=== PATIENT | female | born 1980 | race Caucasian/White ===

== ENCOUNTER → 2020-07-02 11:52 | Outpatient (CLI) | payer BC, SELFPAY ==
--- NOTE | 2020-07-02 | XR_ITS ---
PROCEDURE: XR CHEST PORTABLE CLINICAL HISTORY: COVID TEST Cough COMPARISON: No exams were available for comparison FINDINGS: The cardiomediastinal silhouette and pulmonary vascularity are within normal limits. The lungs are clear without infiltrates, suspicious nodules, or pleural effusions. No acute bony abnormalities. IMPRESSION: No acute findings. Dictated b Kalen Fierro MD 07/02/2020 14:35 Kalen Fierro MD in [place] 07/02/2020 14:35
== END ==
PROVIDERS: PCP Nurse Practitioner; Visit Provider Nurse Practitioner
DX: Z03.818 Encounter for observation for suspected exposure to other biological agents ruled out (principal)
CPT/HCPCS: 71045; U0003

== ENCOUNTER → 2021-01-02 16:00 | Outpatient (CLI) | payer BC, SELFPAY | PROVIDERS: PCP Nurse Practitioner Family; Visit Provider Nurse Practitioner Family | DX: Z20.822 Contact with and (suspected) exposure to COVID-19 (principal) | CPT/HCPCS: U0003 ==

== ENCOUNTER → 2021-03-11 08:16 | Outpatient (CLI) | payer BC, SELFPAY ==
--- NOTE | 2021-03-11 08:22 | US_ITS ---
PROCEDURE: US ABDOMEN COMPLETE CLINICAL INDICATION: UPPER ABD PAIN Right upper quadrant pain COMPARISON: No exams were available for comparison FINDINGS: PANCREAS: Unremarkable. No obvious mass or abnormal fluid collection. No ductal dilatation LIVER: No focal liver lesions demonstrated. Homogeneous echogenicity. No intrahepatic biliary ductal dilatation evident. There is appropriate direction of blood flow within a non dilated portal vein RIGHT KIDNEY: Unremarkable. Normal size and echogenicity. No hydronephrosis. Minimal ectasia of the right renal collecting system nonspecific and may be due to patient's hydration status. LEFT KIDNEY: Unremarkable. Normal size and echogenicity. No hydronephrosis GALLBLADDER: No gallstones, gallbladder wall thickening, pericholecystic fluid, or biliary dilatation. AORTA: No evidence of aneurysmal dilatation. SPLEEN: Unremarkable. Normal size and echogenicity ASCITES: None demonstrated. IMPRESSION: Unremarkable abdominal ultrasound Dictated by: Kalen Fierro MD 03/11/2021 09:27 Kalen Fierro MD in [place] 03/11/2021 09:27
== END ==
PROVIDERS: PCP Nurse Practitioner Family; Visit Provider Nurse Practitioner Family
DX: R10.10 Upper abdominal pain, unspecified (principal)
CPT/HCPCS: 76700

== ENCOUNTER → 2021-03-26 07:35 | Outpatient (CLI) | payer BC, SELFPAY ==
--- NOTE | 2021-03-26 11:01 | NM_ITS ---
PROCEDURE: NM HEPATOBILIARY W PHARM CLINICAL INDICATION: UPPER ABD PAIN COMPARISON: No exams were available for comparison TECHNIQUE: DOSE: 7.82 mCi technetium Choletec. Fatty meal was given with Ensure. No pain was reported with fatty meal. FINDINGS: Homogeneous activity is present within the hepatic parenchyma. Activity is present in the gallbladder by 42 minutes. Activity is present in the small bowel by 10 minutes. The gallbladder ejection fraction is calculated to be 31 percent. The patient did not report pain or other symptoms during the fatty meal. IMPRESSION: No evidence of common or cystic duct obstruction. There is slight delay in gallbladder visualization and ejection fraction is slightly below normal at 31 percent. These findings may be seen with gallbladder dyskinesia. Please correlate with clinical parameters Dictated by: Kalen Fierro MD 03/26/2021 18:23 Kalen Fierro MD in [place] 03/26/2021 18:23
[2021-03-26 12:16] LABS: Urine Pregnancy, HCG Qual. Negative (Negative)
== END ==
PROVIDERS: PCP Nurse Practitioner Family; Visit Provider Nurse Practitioner Family
DX: R10.10 Upper abdominal pain, unspecified (principal)
CPT/HCPCS: 78227; 81025; A9537

== ENCOUNTER 2021-10-23 10:00 | Emergency (ER) | payer BC, SELFPAY ==
[2021-10-23] VITALS (7 sets, daily range): BP systolic 127–142; BP diastolic 69–90; PULSE 73–98; RESP 16–18; TEMP 36.7; O2SAT 95–100; BMI 26.5
[2021-10-23 10:57] LABS: Basophils # 0.1 K/mm3 (0-0.2); Basophils % 0.6 % (0.1-2.0); Eosinophils # 0.1 K/mm3 (0.0-0.4); Eosinophils % 1.3 % (0.1-12.0); Hematocrit 37.6 % (37.0-47.0); Hemoglobin 13.1 g/dL (12.2-16.2); Lymphocytes # 1.9 K/mm3 (0.7-4.5); Mean Corpuscular HGB Conc 34.8 g/dL (31.8-35.4); Mean Corpuscular Hemoglobin 30.6 pg (27.0-31.2); Mean Corpuscular Volume 87.9 fl (81-99); Mean Platelet Volume 7.8 fl (7.4-10.4); Monocytes # 0.3 K/mm3 (0.1-1.0); Monocytes % 3.3 % (1.7-9.3); Neutrophils # 5.5 K/mm3 (1.8-7.8); Neutrophils % 70.8 % (37.0-80.0); Platelet Count 346 K/mm3 (142-424); Red Blood Count 4.28 M/mm3 (4.20-5.40); Red Cell Distribution Width 13.4 % (11.5-17.5); White Blood Count 7.7 K/mm3 (4.8-10.8)
[2021-10-23 10:58] LABS: Chloride 106 mmol/L (98-107); Sodium 140 mmol/L (136-145)
[2021-10-23 10:59] LABS: Potassium 3.7 mmoL/L (3.5-5.1)
[2021-10-23 11:01] LABS: Alanine Aminotransferase 15 U/L (12-78); Alkaline Phosphatase 83 U/L (38-126); Anion Gap 11.7 mEq/L (5-15); Aspartate Amino Transferase 30 U/L (14-36); Blood Urea Nitrogen 9 mg/dl (7-17); Carbon Dioxide 26 mmol/L (22.0-30.0); Creatinine Clearance Estimated 194 mL/min (50-200); Estimated Glomerular Filt Rate 135 ml/min (>60); GFR (African American) 164 ML/MIN (>60)
[2021-10-23 11:02] LABS: Albumin Level 4.6 g/dl (3.5-5.0); Albumin/Globulin Ratio 1.6 (1.1-1.8); Calcium 9.1 mg/dl (8.4-10.2); Globulin 2.9 g/dL (1.3-3.2); Glucose 99 mg/dl (74-100); Total Protein,Serum 7.5 g/dl (6.3-8.2)
--- NOTE | 2021-10-23 11:27 | HMH.EDGENADL ---
ED Disposition Clinical Impression: Dizziness, Paresthesias, Nausea Headache Qualifiers: Headache type: unspecified Headache chronicity pattern: acute headache Intractability: intractable Qualified Code(s): R51.9 - Headache, unspecified Otalgia Qualifiers: Laterality: left Qualified Code(s): H92.02 - Otalgia, left ear Disposition: Home, Self-Care Condition on Discharge: Good Instructions: DI for Nausea -- Adult, DI for Headache, DI for Vertigo Additional Instructions: Fioricet as needed for headache. Antivert as needed for dizziness/vertigo. Zofran as needed for nausea. Additional instructions for HEADACHE: See your physician as soon as possible for further evaluation. Return immediately if worsening headache, vomiting, problems with vision or speech, fever, numbness or weakness of the extremities, neck pain or stiffness. Additional instructions for CONTROLLED SUBSTANCES: You have been prescribed a medication that is a controlled substance. Controlled substances include pain medications known as opiates and sedative nerve medications known as benzodiazepines. Tramadol, fioricet, and gabapentin are also controlled substances. Some common opiates include: Codeine (such as Tylenol #3) Hydrocodone (Vicodin, Lortab, Lorcet, Jensen) Oxycodone (Percocet, Percodan, Oxycodone, Oxy IR) Some common benzodiazepines include: Diazepam (Valium) Lorazepam (Ativan) Alprazolam (Xanax) Clonazepam (Klonopin) Oxazepam (Serax) All of these controlled substances are highly addictive and frequently abused. Misuse can and frequently does lead to addiction as well as overdose and . Medication should be stored in a locked cabinet or other secure storage unit. Do not store the medication in a motor vehicle. Short term supplies, 3 days or less, are prescribed because of the highly addictive nature of the medication. Any of the controlled substance medication NOT taken should be disposed of properly and NOT SAVED. The recommended method of disposing of unused medications is: Place the medicines in a sealable plastic bag. If the medicine is a solid, crush it or add water to dissolve it. Add something undesirable (cat litter, coffee grounds, etc.) Dispose of sealed bag in household trash Do not flush or pour unused medicines down a sink or drain. Controlled substances should not be shared, given away or sold. Because of the addictive nature and frequent abuse, these medications are sometimes stolen. These medications should be kept in a safe place where they cannot be stolen. Do not keep them in your car or purse. Lost or stolen prescriptions for controlled substances WILL NOT BE REFILLED in this emergency department, regardless of whether a police report was filed. Prescriptions: Butalb/Acetaminophen/Caffeine [Fioricet 50-300-40 mg Capsule] 1 each PO Q4HP PRN #10 capsule PRN Reason: Headache Transmission Status: Sent to [facility] Meclizine HCl [Antivert 25mg tablet] 25 mg PO TIDP PRN #15 tab PRN Reason: Vertigo Transmission Status: Pending to [facility] Ondansetron [Zofran 4mg ODT] 4 mg PO TIDP PRN #10 tab PRN Reason: Nausea And Vomiting Transmission Status: Pending to [facility] Referrals: Gabrielle Birch APRN [Primary Care Provider] - - Critical Care Critical Care Time: No Attestation: On 10/23/21, the high probability of a clinically significant, sudden or life threatening deterioration of the following system(s) required my full and direct attention, intervention and personal management. The time I documented below is in addition to time spent performing reported procedures but includes the following listed in this critical care notation. Medical Decision Making - Medical Records Medical records reviewed: Yes: I reviewed the patient's medical records. MR Comment: Reviewed patient's emergency department visit 10/20/2021 [facility] via [employer]. T
[2021-10-23 12:54] LABS: Microscopic, Urine URINE MICROSCOPIC (MICROSCOPIC)
[2021-10-23 12:56] LABS: Appearance,Urine CLEAR (Clear); Bilirubin,Urine Negative (Negative); Blood, Urine Negative (Negative); Color,Urine YELLOW (Yellow); Glucose,Urine (UA) Negative (Negative); Ketones,Urine Negative (Negative); Leukocyte Esterase,Urine Negative (Negative); Nitrate,Urine Negative (Negative); Protein,Urine Negative (Negative); Specific Gravity, Urine 1.015 (1.005-1.030); Urobilinogen,Urine 0.2 EU/dl (0.2)
[2021-10-23 12:57] LABS: Urine Pregnancy, HCG Qual. Negative (Negative)
[2021-10-23 13:08] LABS: Squamous Epithelial Cell,Urine Occasional #/hpf (0-5)
== END 2021-10-23 13:06 | disposition home or self-care (01) ==
PROVIDERS: Emergency Provider Emergency Medicine; PCP Nurse Practitioner Family
DX: R42 Dizziness and giddiness (principal); R20.2 Paresthesia of skin
CPT/HCPCS: 80053; 81001; 81025; 85025; 96374; 99283; J2405

== ENCOUNTER → 2021-10-27 17:53 | Outpatient (CLI) | payer BC, SELFPAY | PROVIDERS: PCP Nurse Practitioner Family; Visit Provider Nurse Practitioner | DX: Z20.822 Contact with and (suspected) exposure to COVID-19 (principal) | CPT/HCPCS: C9803; U0003; U0005 ==

== ENCOUNTER → 2021-11-02 12:25 | Outpatient (CLI) | payer BC, SELFPAY ==
--- NOTE | 2021-11-02 12:29 | XR_ITS ---
PROCEDURE: XR CERVICAL SPINE 5V CLINICAL INDICATION: CERVICALGIA COMPARISON: No exams were available for comparison FINDINGS: No fracture or dislocation. No lytic or blastic change. There is normal mineralization. Mild degenerative disc disease C5-C6. There is straightening of the cervical lordosis. No foraminal narrowing apparent. Other findings:None. IMPRESSION: Mild degenerative disc disease C5-C6 with straightening of the cervical lordosis which could be due to patient positioning or muscle spasm. Dictated by: Kalen Fierro MD 11/02/2021 13:40 Kalen Fierro MD in [place] 11/02/2021 13:40
== END ==
PROVIDERS: PCP Nurse Practitioner Family; Visit Provider Nurse Practitioner Family
DX: M54.2 Cervicalgia (principal)
CPT/HCPCS: 72050

== ENCOUNTER → 2021-11-05 15:52 | Outpatient (CLI) | payer BC, SELFPAY ==
[2021-11-05 17:12] LABS: Free T4 (Free Thyroxine) 1.39 ng/dl (0.78-2.19)
[2021-11-05 17:24] LABS: Thyroid Stimulating Hormone 0.51 uIU/mL (0.465-4.68)
[2021-11-05 17:58] LABS: Vitamin B12 774 pg/mL (239-931)
[2021-11-05 18:12] LABS: Folate > 20.00 ng/mL
[2021-11-09 15:14] LABS: Thyroglobulin Level <1.0 IU/mL (0.0-0.9)
== END ==
PROVIDERS: Visit Provider Specialist
DX: R51.9 Headache, unspecified (principal); E04.9 Nontoxic goiter, unspecified; R29.2 Abnormal reflex
CPT/HCPCS: 36415; 82607; 82746; 84439; 84443; 84481; 86800

== ENCOUNTER 2021-11-07 09:02 | Emergency (ER) | payer BC, SELFPAY ==
[2021-11-07 09:10] VITALS: BP 136/77; PULSE 102; RESP 19; TEMP 36.5; O2SAT 98; BMI 25.5
[2021-11-07 09:50] LABS: Apearance,Urine Clear (Clear); Color,Urine Yellow (Yellow); PH,Urine 6.5 (5.0-8.5)
[2021-11-07 09:50] LABS: UTC Strep Screen (Rapid) Negative (Negative)
[2021-11-07 09:51] LABS: Bilirubin,Urine Negative (Negative); Blood, Urine 3+ (Negative); Glucose,Urine (UA) Negative (Negative); Ketones,Urine Negative (Negative); Protein,Urine 1+ (Negative); UTC Leukocyte Esterase,Urine Trace (Negative); UTC Nitrate,Urine Negative (Negative); Urobilinogen,Urine 0.2 EU/dl (0.2)
--- NOTE | 2021-11-07 09:52 | HMH.EDUTC ---
[facility] [place] Disposition Clinical Impression: Yeast infection of the vagina UTI (urinary tract infection) Qualifiers: Urinary tract infection type: acute cystitis Hematuria presence: without hematuria Qualified Code(s): N30.00 - Acute cystitis without hematuria Disposition: Home, Self-Care Condition on Discharge: Good Instructions: Urinary Tract Infection, DI for Vaginal Yeast Infection Additional Instructions: Increase fluids, water and not soda or tea. Can drink cranberry juice or cranberry extract. White front to back Wear cotton underwear Empty bladder after intercourse Start antibiotics immediately and make sure you take the full course although you may start to see improvement over the next 48 hours. You can eat yogurt or take probiotics to decrease diarrhea or yeast infection caused by the antibiotic Be sure to follow-up anytime for new or worsening symptoms in 48 hours for wound urine culture results be sure to let you PCP no recent urine for culture so they can request records and ensure that you have appropriate antibiotic if you are not getting better or getting worse. If symptoms worsen or do not improve return or be seen in the ER. Follow-up with primary care this week. do not take nurtec within 48 hours of diflucan Prescriptions: cephALEXin [Cephalexin 500mg Tab] 500 mg PO BID 7 Days #14 tab Transmission Status: Sent to [facility] Fluconazole [Diflucan 150mg tab] 150 mg PO ONCE 1 Days #1 tab Transmission Status: Sent to [facility] Referrals: Gabrielle Birch APRN [Primary Care Provider] - Time of Disposition: 09:58 Medical Decision Making - Lai Inquiry Pt receiving controlled substance: No Vital Signs: 11/07/21 09:10 Temperature 97.7 F Temperature Source Oral Pulse Rate [Right Brachial] 102 H Respiratory Rate 19 Blood Pressure [Right Arm] 136/77 Blood Pressure Mean [Right Arm] 96 Blood Pressure Source [Right Arm] Automatic Cuff Blood Pressure Position [Right Arm] Sitting 02 Sat by Pulse Oximetry 98 Oxygen Delivery Method Room Air - Lab Data Lab Results 11/07/21 09:27: Urine Color Yellow, Urine Appearance Clear, Urine pH 6.5, Ur Specific Warner 1.020, Urine Protein 1+, Urine Glucose (UA) Negative, Urine Ketones Negative, Urine Blood 3+, Urine Nitrate Negative, Urine Bilirubin Negative, Urine Urobilinogen 0.2, Ur Leukocyte Esterase Trace 11/07/21 09:33: Strep Scn Rapid Clinic Negative Orders (Tests/Meds): ORDERS Category Date Time Status Strep Screen Confirmation Stat Micro 11/07/21 09:33 Received [facility] [place] HPI - General Chief complaint: Urgent Treatment Center Stated complaint: sore throat Time Seen by Provider: 11/07/21 09:52 Mode of Arrival: Ambulatory Source of Information: Patient Limitations: No Limitations Description of Symptoms (Recalled from Triage Doc. by RN): PATIENT C/O ITCHING TO VAGINAL AREA X 2 DAYS AND SORE THROAT/SINUS DRAINAGE X 3 DAYS HEENT Symptoms (Recalled from RN notes): Yes Resp Symptoms (Recalled from RN notes): No Skin Symptoms (Recalled from RN notes): No MS Symptoms (Recalled from RN notes): No Functional Status (Recalled from RN notes): WNL - History of Present Illness Provider Complaint: 41 yr old female presents for vaginal itching, burning for 2 days and sore throat and sinus drainage for 3 days. just finished amoxicillin and still taking steroids. - Related Data Home Medications Medication Instructions Recorded Confirmed sertraline 25 mg tablet 25 mg PO DAILY 11/05/21 11/07/21 Rimegepant Sulfate [Nurtec Odt] 75 mg PO DAILY 11/07/21 11/07/21 methylPREDNISolone 4 mg PO PER PKG DIR 11/07/21 11/07/21 [Methylprednisolone] Previous Rx's Medication Instructions Recorded Fluconazole [Diflucan 150mg tab] 150 mg PO ONCE 1 Days #1 tab 11/07/21 cephALEXin [Cephalexin 500mg Tab] 500 mg PO BID 7 Days #14 tab 11/07/21 Allergies Allergy/AdvReac Type Severity Reaction Status Date / Time No Known Allergies All
[2021-11-07 09:59] VITALS: BP 136/77; PULSE 102; RESP 19; TEMP 36.5; O2SAT 98
== END 2021-11-07 10:03 | disposition home or self-care (01) ==
PROVIDERS: Emergency Provider Nurse Practitioner Family; PCP Nurse Practitioner Family
DX: N30.00 Acute cystitis without hematuria (principal); B37.3 Candidiasis of vulva and vagina; E78.5 Hyperlipidemia, unspecified; F33.1 Major depressive disorder, recurrent, moderate
CPT/HCPCS: 81003; 87086; 87088; 87186; 87880; 99203; G0463

== ENCOUNTER → 2021-11-11 13:27 | Outpatient (CLI) | payer BC, SELFPAY ==
--- NOTE | 2021-11-11 13:27 | MR_ITS ---
PROCEDURE: MR HEAD/BRAIN WO/W CON CLINICAL INDICATION: new onset headache Pain in pain in COMPARISON: No exams were available for comparison TECHNIQUE: Routine multiplanar multi echo sequences are performed without and with gadolinium enhancement. FINDINGS: No midline shift, mass effect, intracranial hemorrhage, or hydrocephalus. The cerebellopontine angles, cerebellum, and brainstem have an unremarkable appearance. No restricted diffusion. No enhancing lesions. The pituitary,, corpus callosum, and craniocervical junction have an unremarkable appearance. Unremarkable white matter signal intensity. No mastoid effusion. No sinus air-fluid level. There is mucosal thickening in the left ethmoid sinus and the left sphenoid ethmoid region. Mild prominence of the subarachnoid space in the frontal parietal area nonspecific. IMPRESSION: No acute intracranial findings. Ethmoid sinus disease on the left Dictated by: Kalen Fierro MD 11/12/2021 11:35 Kalen Fierro MD in [place] 11/12/2021 11:35
== END ==
PROVIDERS: PCP Nurse Practitioner Family; Visit Provider Specialist
DX: R51.9 Headache, unspecified (principal); R29.2 Abnormal reflex
CPT/HCPCS: 70553; A9576

== ENCOUNTER → 2021-12-05 09:46 | Outpatient (CLI) | payer BC, SELFPAY | PROVIDERS: PCP Nurse Practitioner Family; Visit Provider Nurse Practitioner | DX: U07.1 COVID-19 (principal) | CPT/HCPCS: C9803; U0003; U0005 ==

== ENCOUNTER → 2022-03-18 08:30 | Outpatient (CLI) | payer BC, SELFPAY ==
--- NOTE | 2022-03-18 08:34 | US_ITS ---
FINAL REPORT CLINICAL HISTORY: RIGHT SIDED ABDOMINAL PAIN. STATUS POST CHOLECYSTECTOMY FINDINGS: Sonographic images of the abdomen were obtained. The liver has an unremarkable appearance with normal echogenicity. The gallbladder is surgically absent. There is no evidence of biliary ductal dilatation. The common hepatic duct measures 3 mm, which is within normal limits. Limited images of the pancreas are unremarkable. The spleen size is normal. The right kidney measures 11.4 cm in length. The left kidney measures 12.9 cm in length. There is normal renal echogenicity. There is no evidence of hydronephrosis. The aorta has an unremarkable appearance. Limited images of the inferior vena cava are unremarkable. IMPRESSION: Surgically absent gallbladder otherwise unremarkable abdominal ultrasound. Reviewed, Interpreted and Dictated by Masood Ni III, MD Transcribed by Daniel Ward Authenticated by Masood Ni III, MD on 03/18/2022 10:26:[address] [facility]
== END ==
PROVIDERS: PCP Nurse Practitioner Family; Visit Provider Nurse Practitioner Family
DX: R10.9 Unspecified abdominal pain (principal); Z90.49 Acquired absence of other specified parts of digestive tract
CPT/HCPCS: 76700

== ENCOUNTER → 2022-04-27 11:39 | Outpatient (CLI) | payer BC, SELFPAY ==
[2022-04-27 12:26] LABS: Basophils # 0.1 K/mm3 (0-0.2); Basophils % 2.1 % (0.1-2.0); Eosinophils # 0.2 K/mm3 (0.0-0.4); Eosinophils % 3.1 % (0.1-12.0); Hematocrit 37.4 % (37.0-47.0); Hemoglobin 12.6 g/dL (12.2-16.2); Lymphocytes # 1.4 K/mm3 (0.7-4.5); Lymphocytes % 25.1 % (10-50); Mean Corpuscular HGB Conc 33.7 g/dL (31.8-35.4); Mean Corpuscular Hemoglobin 29.6 pg (27.0-31.2); Mean Platelet Volume 7.7 fl (7.4-10.4); Monocytes # 0.4 K/mm3 (0.1-1.0); Monocytes % 6.2 % (1.7-9.3); Neutrophils # 3.6 K/mm3 (1.8-7.8); Neutrophils % 63.6 % (37.0-80.0); Platelet Count 286 K/mm3 (142-424); Red Blood Count 4.25 M/mm3 (4.20-5.40); Red Cell Distribution Width 13.7 % (11.5-17.5); White Blood Count 5.6 K/mm3 (4.8-10.8)
[2022-04-28 14:13] LABS: EBV Ab VCA, IgG >600.0 U/mL (0.0-17.9); EBV Ab VCA, IgM <36.0 U/mL (0.0-35.9)
== END ==
PROVIDERS: PCP Nurse Practitioner Family; Visit Provider Nurse Practitioner Family
DX: Z20.822 Contact with and (suspected) exposure to COVID-19 (principal); Z20.828 Contact with and (suspected) exposure to other viral communicable diseases; R05.1 Acute cough; R59.0 Localized enlarged lymph nodes
CPT/HCPCS: 36415; 85025; 86664; 86665; C9803; U0003; U0005

== ENCOUNTER 2022-05-25 16:35 | Emergency (ER) | payer BC, SELFPAY ==
[2022-05-25 16:42] VITALS: BP 123/73; PULSE 77; RESP 18; TEMP 36.9; O2SAT 97; BMI 26.5
--- NOTE | 2022-05-25 16:50 | HMH.EDUTC ---
[facility] [place] Disposition Clinical Impression: Need for Tdap vaccination, Superficial laceration of finger Disposition: Home, Self-Care Condition on Discharge: Good Instructions: DI for Avulsion Laceration (Not Requiring Sutures), Tetanus, Diphtheria, Pertussis (Tdap) Vaccine Additional Instructions: Keep the wound clean and dry. Watch the for signs of infection, such as redness, swelling, drainage, fever. etc. Follow up with your regular doctor. GO TO THE ER FOR ANY WORSENING SYMPTOMS OR CONCERNS. Prescriptions: Mupirocin [Bactroban 2% Ointment 22gm tube] 1 applicatio TP TID 7 Days #1 gm Transmission Status: Pending to [facility] Referrals: Gabrielle Birch APRN [Primary Care Provider] - Time of Disposition: 16:52 Medical Decision Making - Medical Records Medical records reviewed: No: I reviewed the patient's medical records. - Lai Inquiry Pt receiving controlled substance: No Vital Signs: 05/25/22 16:42 Temperature 98.5 F Temperature Source Oral Pulse Rate [Left] 77 Respiratory Rate 18 Blood Pressure [Right Arm] 123/73 Blood Pressure Mean [Right Arm] 89 02 Sat by Pulse Oximetry 97 Orders (Tests/Meds): ED MEDICATIONS Discontinued Medications Generic Name Dose Route Start Last Admin Trade Name Freq PRN Reason Stop Dose Admin Tetanus/Diphtheria Toxoids 0.5 ml 05/25/22 16:49 05/25/22 16:50 Tetanus-Diphth Toxoid, Adult 0.5ml Syr IM 05/25/22 16:50 0.5 ml .ONCE ONE Administration [facility] [place] HPI - General Stated complaint: AO 05/25@1530 lac R little finger Time Seen by Provider: 05/25/22 16:45 Description of Symptoms (Recalled from Triage Doc. by RN): patient comes in today for a tetanus shot. patient was washing a truck and sliced finger on a dawood part. HEENT Symptoms (Recalled from RN notes): No Resp Symptoms (Recalled from RN notes): No Skin Symptoms (Recalled from RN notes): Yes MS Symptoms (Recalled from RN notes): No Functional Status (Recalled from RN notes): wnl - History of Present Illness Provider Complaint: She was washing her 's truck this morning when her right index finger got caught on some rust and she recieved a small superficial laceration. She came in because it has been over 10 years since she has had a tetanus immunization. She denies any other complaints. - Related Data Home Medications Medication Instructions Recorded Confirmed sertraline 25 mg tablet 25 mg PO DAILY 11/05/21 05/10/22 Previous Rx's Medication Instructions Recorded rimegepant 75 mg disintegrating 75 mg PO ONCE PRN #8 tab 05/10/22 tablet Mupirocin [Bactroban 2% Ointment 1 applicatio TP TID 7 Days #1 gm 05/25/22 22gm tube] Allergies Allergy/AdvReac Type Severity Reaction Status Date / Time No Known Allergies Allergy Verified 03/08/22 09:20 - Worker's Comp Is this a Worker's Comp case?: No [facility] History - Hepatitis A Screen Attestation statement:: This patient has been screened for Hepatitis A risk factors. I have reviewed the patient's past medical history: Yes Medical History: Reports:: Depression, Hyperlipidemia, Migraine, Palpitations Other Medical History: Reports: Thyroid Disease Laterality Cases: Bilateral: Tonsillectomy Other Surgeries: Yes: Cholecystectomy, Sinus Surgery Amputation: No Fractures: Yes Comment: DENTAL IMPLANT - 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 Smoking Status: Never smoker Alcohol Intake: current Alcohol Intake Frequency:: holidays/special occasions only Substance Use Type: denies use Occupational Status: employed Housing: house Household Members: spouse, children - Psychiatric History Pschychiatric History:: Reports:: Depression Family Hx:: Hypertension, Heart Attack ROS Obtained: Yes All systems reviewed & no additional complaints - Constitutional Constitutional: Denies chills, Denies fever(s) - Musculoskeletal Musculoskeletal: Denies joint pain - Integumentary/Breasts Skin/Breast: Reports as per HPI
[2022-05-25 16:59] VITALS: BP 123/73; PULSE 77; RESP 18; TEMP 36.9
== END 2022-05-25 17:00 | disposition home or self-care (01) ==
PROVIDERS: Emergency Provider Nurse Practitioner Family; PCP Nurse Practitioner Family
DX: S61.210A Laceration without foreign body of right index finger without damage to nail, initial encounter (principal); W26.9XXA Contact with unspecified sharp object(s), initial encounter
CPT/HCPCS: 90471; 90714; 99212; G0463

== ENCOUNTER → 2022-10-27 09:28 | Outpatient (CLI) | payer BC, SELFPAY ==
--- NOTE | 2022-10-27 09:32 | XR_ITS ---
FINAL REPORT TECHNIQUE: Chest PA & Lateral CLINICAL HISTORY: CHEST PAIN during inspiration x 2 months chest feels heavy COMPARISON: July 02, 2020 FINDINGS: 2 views of the chest were performed. The heart size is normal. The mediastinum is within normal limits. There is no acute cardiopulmonary process. There are no pleural effusions. There is no pneumothorax. The bony thorax appears intact. IMPRESSION: No acute cardiopulmonary process. Reviewed, Interpreted and Dictated by Saqib Alvarez MD Transcribed by Janice Delgado Authenticated and [facility]
== END ==
PROVIDERS: PCP Nurse Practitioner Family; Visit Provider Family Medicine
DX: R07.9 Chest pain, unspecified (principal)
CPT/HCPCS: 71046

== ENCOUNTER 2023-01-08 08:00 | Emergency (ER) | payer BC, SELFPAY ==
[2023-01-08 08:10] VITALS: BP 115/73; PULSE 118; RESP 21; TEMP 37.1; O2SAT 96; BMI 26.8
[2023-01-08 08:17] LABS: UTC Strep Screen (Rapid) Positive (Negative)
--- NOTE | 2023-01-08 08:32 | EXP.UTC ---
Discharge Plan Disposition Patient Disposition: Home, Self-Care Condition: Good Prescriptions Prescriptions: New prednisone 10 mg tablet 10 mg PO BID 3 Days Qty: 6 0RF amoxicillin [amoxicillin] 500 mg tablet 500 mg PO TID 10 Days Qty: 30 0RF ondansetron 4 mg Tablet,Disintegrating 4 mg PO Q8H PRN (Reason: Nausea) Qty: 12 0RF No Action sertraline [Zoloft] 25 mg tablet 25 mg PO DAILY Linzess 72 mcg capsule 72 mcg PO PRN Nurtec ODT 75 mg tablet,disintegrating 75 mg PO ONCE PRN (Reason: migraine headache) Qty: 8 5RF Rx Instructions: Place 1 pill under tongue at onset of headache. Max dose 75 mg in 24 hours. Referrals Follow up/Referrals: Gabrielle Birch APRN [Primary Care Provider] - See instructions Activity Restrictions/Add. Instructions Additional Instructions/Restrictions: Drink plenty of fluids. Take tylenol or ibuprofen for pain or fever. Take the medications as directed. Follow up with your regular doctor. GO TO THE ER FOR ANY WORSENING SYMPTOMS Throw your tooth brush away and get a new one. Clinical Impressions Clinical Impression: Strep throat Instructions Patient Instructions: Strep Throat, DI for Strep Throat Discharge ED Provider: Rafael Sandoval [facility] General Stated complaint: sore throat,congestion,achey Mode of Arrival: Ambulatory Source of Information: Patient Limitations: No Limitations Time Seen by Provider: 01/08/23 08:33 Description of Symptoms (Recalled from Triage Doc. by RN): PATIENT C/O SORE THROAT, BODY ACHES, HEADACHE, VOMITING AND CONGESTION SINCE LAST NIGHT HEENT Symptoms (Recalled from RN notes): Yes Resp Symptoms (Recalled from RN notes): No Skin Symptoms (Recalled from RN notes): No MS Symptoms (Recalled from RN notes): No Functional Status (Recalled from RN notes): WNL History of Present Illness Provider Complaint: She states that for the past 2 days she has had a worsening sore throat, chills, and low grade fever. Related Data Home Medications Medication Instructions Recorded Confirmed sertraline 25 mg tablet (Zoloft) 25 mg PO DAILY MOOD 11/05/21 11/25/22 linaclotide 72 mcg capsule 72 mcg PO PRN 11/25/22 11/25/22 (Linzess) Previous Rx's Medication Instructions Recorded rimegepant 75 mg disintegrating 75 mg PO ONCE PRN migraine 11/25/22 tablet (Nurtec ODT) headache #8 tabs amoxicillin 500 mg tablet 500 mg PO TID 10 days #30 tabs 01/08/23 ondansetron 4 mg disintegrating 4 mg PO Q8H PRN Nausea #12 tabs 01/08/23 tablet prednisone 10 mg tablet 10 mg PO BID 3 days #6 tabs 01/08/23 Allergies Allergy/AdvReac Type Severity Reaction Status Date / Time No Known Allergies Allergy Verified 07/07/22 16:00 Worker's Comp Is this a Worker's Comp case?: No PFSH PFS Disclaimer: The information contained in this section may have been updated after the patient was seen, as this information can be updated by other users. 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 Smoking Status: Never smoker alcohol intake: current substance use type: denies use current occupational status: employed Travel in the last 8 weeks: None household members: spouse and children housing: house ROS Obtained: Yes All systems reviewed & no additional complaints except as documented Constitutional Constitutional: Reports chills and Reports fever(s) Eyes Eyes: Denies eye discharge ENT Ears, Nose, Mouth, and Throat: Reports as per HPI Cardiovascular Cardiovascular: Denies chest pain Respiratory Respiratory: Denies chest congestion and Reports cough Gastrointestinal Gastrointestingal: Reports nausea; Denies abdominal pain, constipation, cramping, diarrhea or vomiting Musculoskeletal Musculoskeletal: Denies arthralgias Integumentary/Breasts Skin/Breast: Denies rash Neurologic Neurologic: Denies paresthesias Physical Exam General General appearance: alert and in no apparent distress He
[2023-01-08 08:50] VITALS: BP 115/73; PULSE 118; RESP 21; TEMP 37.1; O2SAT 96
== END 2023-01-08 09:05 | disposition home or self-care (01) ==
PROVIDERS: Emergency Provider Nurse Practitioner Family; PCP Nurse Practitioner Family
DX: J02.0 Streptococcal pharyngitis (principal)
CPT/HCPCS: 87880; 96372; 99212; 99213; G0463; J0696

== ENCOUNTER 2023-02-13 08:00 | Emergency (ER) | payer BC, SELFPAY ==
[2023-02-13 08:10] VITALS: BP 122/75; PULSE 89; RESP 19; TEMP 37.1; O2SAT 99; BMI 26.8
[2023-02-13 08:33] LABS: Apearance,Urine Clear (Clear); Color,Urine Yellow (Yellow); Specific Gravity, Urine >= 1.030 (1.005-1.030)
[2023-02-13 08:34] LABS: Bilirubin,Urine Negative (Negative); Blood, Urine Trace (Negative); Glucose,Urine (UA) Negative (Negative); Ketones,Urine Negative (Negative); Protein,Urine 1+ (Negative); UTC Leukocyte Esterase,Urine 1+ (Negative); UTC Nitrate,Urine Negative (Negative); Urobilinogen,Urine 0.2 EU/dl (0.2)
--- NOTE | 2023-02-13 08:40 | EXP.UTC ---
Discharge Plan Disposition Patient Disposition: Home, Self-Care Condition: Good Prescriptions Prescriptions: New cephalexin [cephalexin] 500 mg tablet 500 mg PO BID 7 Days Qty: 14 0RF fluconazole [Diflucan] 100 mg tablet 100 mg PO ONCE Qty: 2 0RF Rx Instructions: 1 TAB NOW AND REPEAT DOSE AFTER COMPLETING ANTIBIOTICS No Action sertraline [Zoloft] 25 mg tablet 25 mg PO DAILY Linzess 72 mcg capsule 72 mcg PO PRN Nurtec ODT 75 mg tablet,disintegrating 75 mg PO ONCE PRN (Reason: migraine headache) Qty: 8 5RF Rx Instructions: Place 1 pill under tongue at onset of headache. Max dose 75 mg in 24 hours. prednisone 10 mg tablet 10 mg PO BID 3 Days Qty: 6 0RF amoxicillin [amoxicillin] 500 mg tablet 500 mg PO TID 10 Days Qty: 30 0RF ondansetron 4 mg Tablet,Disintegrating 4 mg PO Q8H PRN (Reason: Nausea) Qty: 12 0RF Referrals Follow up/Referrals: Gabrielle Birch APRN [Primary Care Provider] - See instructions Activity Restrictions/Add. Instructions Additional Instructions/Restrictions: Increase fluids, water and not soda or tea. Can drink cranberry juice or cranberry extract. White front to back Wear cotton underwear Empty bladder after intercourse Start antibiotics immediately and make sure you take the full course although you may start to see improvement over the next 48 hours. You can eat yogurt or take probiotics to decrease diarrhea or yeast infection caused by the antibiotic Be sure to follow-up anytime for new or worsening symptoms in 48 hours for wound urine culture results be sure to let you PCP no recent urine for culture so they can request records and ensure that you have appropriate antibiotic if you are not getting better or getting worse. If symptoms worsen or do not improve return or be seen in the ER. Follow-up with primary care this week. Clinical Impressions Clinical Impression: UTI (urinary tract infection), Yeast infection of the vagina Instructions Patient Instructions: DI for Urinary Tract Infection (UTI), DI for Vaginal Yeast Infection [facility] HPI General Stated complaint: Possible UTI Mode of Arrival: Ambulatory Source of Information: Patient Limitations: No Limitations Time Seen by Provider: 02/13/23 08:41 Description of Symptoms (Recalled from Triage Doc. by RN): PATIENT C/O BURNING AND ITCHING TO GENITAL AREA THAT STARTED TUESDAY AND PELVIC PAIN THAT STARTED YESTERDAY HEENT Symptoms (Recalled from RN notes): No Resp Symptoms (Recalled from RN notes): No Skin Symptoms (Recalled from RN notes): No MS Symptoms (Recalled from RN notes): No Functional Status (Recalled from RN notes): WNL History of Present Illness Provider Complaint: 42 YR OLD FEMALE PRESENTS C/O BURNING AND ITCHING TO GENITAL AREA THAT STARTED TUESDAY AND PELVIC PAIN THAT STARTED YESTERDAY Related Data Home Medications Medication Instructions Recorded Confirmed sertraline 25 mg tablet (Zoloft) 25 mg PO DAILY MOOD 11/05/21 11/25/22 linaclotide 72 mcg capsule 72 mcg PO PRN 11/25/22 11/25/22 (Linzess) Previous Rx's Medication Instructions Recorded rimegepant 75 mg disintegrating 75 mg PO ONCE PRN migraine 11/25/22 tablet (Nurtec ODT) headache #8 tabs amoxicillin 500 mg tablet 500 mg PO TID 10 days #30 tabs 01/08/23 ondansetron 4 mg disintegrating 4 mg PO Q8H PRN Nausea #12 tabs 01/08/23 tablet prednisone 10 mg tablet 10 mg PO BID 3 days #6 tabs 01/08/23 cephalexin 500 mg tablet 500 mg PO BID 7 days #14 tabs 02/13/23 fluconazole 100 mg tablet 100 mg PO ONCE #2 tabs 02/13/23 (Diflucan) Allergies Allergy/AdvReac Type Severity Reaction Status Date / Time No Known Allergies Allergy Verified 07/07/22 16:00 Worker's Comp Is this a Worker's Comp case?: No [facility] Disclaimer: The information contained in this section may have been updated after the patient was seen, as this information can be updated by
[2023-02-13 08:48] VITALS: BP 122/75; PULSE 89; RESP 19; TEMP 37.1; O2SAT 99
== END 2023-02-13 08:58 | disposition home or self-care (01) ==
PROVIDERS: Emergency Provider Nurse Practitioner Family; PCP Nurse Practitioner Family
DX: N39.0 Urinary tract infection, site not specified (principal); B37.31 Acute candidiasis of vulva and vagina
CPT/HCPCS: 81003; 87086; 99212; 99214; G0463

== ENCOUNTER 2023-03-26 19:22 | Emergency (ER) | payer BC, SELFPAY ==
--- NOTE | 2023-03-26 19:39 | EXP.UTC ---
Discharge Plan Disposition Patient Disposition: Home, Self-Care Condition: Good Prescriptions Prescriptions: No Action sertraline [Zoloft] 25 mg tablet 25 mg PO DAILY Linzess 72 mcg capsule 72 mcg PO PRN Nurtec ODT 75 mg tablet,disintegrating 75 mg PO ONCE PRN (Reason: migraine headache) Qty: 8 5RF Rx Instructions: Place 1 pill under tongue at onset of headache. Max dose 75 mg in 24 hours. prednisone 10 mg tablet 10 mg PO BID 3 Days Qty: 6 0RF amoxicillin [amoxicillin] 500 mg tablet 500 mg PO TID 10 Days Qty: 30 0RF ondansetron 4 mg Tablet,Disintegrating 4 mg PO Q8H PRN (Reason: Nausea) Qty: 12 0RF cephalexin [cephalexin] 500 mg tablet 500 mg PO BID 7 Days Qty: 14 0RF fluconazole [Diflucan] 100 mg tablet 100 mg PO ONCE Qty: 2 0RF Rx Instructions: 1 TAB NOW AND REPEAT DOSE AFTER COMPLETING ANTIBIOTICS Referrals Follow up/Referrals: Gabrielle Birch APRN [Primary Care Provider] - See instructions Clinical Impressions Clinical Impression: Impacted cerumen of left ear Instructions Patient Instructions: Cerumen Impaction Discharge ED Provider: Luis Alfredo ([facility])Marybeth [facility] [place] HPI General Stated complaint: Left ear pain Mode of Arrival: Ambulatory Source of Information: Patient Time Seen by Provider: 03/26/23 19:39 HEENT Symptoms (Recalled from RN notes): Yes Resp Symptoms (Recalled from RN notes): No Skin Symptoms (Recalled from RN notes): No GI/ Symptoms (Recalled from RN notes): No Card Symptoms (Recalled from RN notes): No Other (Recalled from RN notes): No History of Present Illness Provider Complaint: 42 yr old female presents for left ear and face pain. pt states hx of headaches but this pain is coming from ear and running up face Related Data Home Medications Medication Instructions Recorded Confirmed sertraline 25 mg tablet (Zoloft) 25 mg PO DAILY MOOD 11/05/21 11/25/22 linaclotide 72 mcg capsule 72 mcg PO PRN 11/25/22 11/25/22 (Linzess) Previous Rx's Medication Instructions Recorded rimegepant 75 mg disintegrating 75 mg PO ONCE PRN migraine 11/25/22 tablet (Nurtec ODT) headache #8 tabs amoxicillin 500 mg tablet 500 mg PO TID 10 days #30 tabs 01/08/23 ondansetron 4 mg disintegrating 4 mg PO Q8H PRN Nausea #12 tabs 01/08/23 tablet prednisone 10 mg tablet 10 mg PO BID 3 days #6 tabs 01/08/23 cephalexin 500 mg tablet 500 mg PO BID 7 days #14 tabs 02/13/23 fluconazole 100 mg tablet 100 mg PO ONCE #2 tabs 02/13/23 (Diflucan) Allergies Allergy/AdvReac Type Severity Reaction Status Date / Time No Known Allergies Allergy Verified 07/07/22 16:00 [facility] Disclaimer: The information contained in this section may have been updated after the patient was seen, as this information can be updated by other users. 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) Smoking Status: Never smoker alcohol intake: current substance use type: denies use current occupational status: employed Travel in the last 8 weeks: None household members: spouse and children housing: house ROS Obtained: Yes All systems reviewed & no additional complaints except as documented Constitutional Constitutional: Reports system reviewed and no additional complaints, except as documented, Reports as per HPI and Reports headache(s) Eyes Eyes: Reports system reviewed and no additional complaints, except as documented and Reports as per HPI ENT Ears, Nose, Mouth, and Throat: Reports system reviewed and no additional complaints, except as documented, Reports as per HPI, Reports otalgia and Reports headache(s) Cardiovascular Cardiovascular: Reports system reviewed and no additional complaints, except as documented Respiratory Respiratory: Reports system reviewed and no additional complaints, except as documented Gastrointestinal Gastrointestingal: Reports system reviewed and no additional complaints, except as documented
[2023-03-26 19:41] VITALS: BP 121/77; PULSE 93; RESP 16; TEMP 36.7; O2SAT 97; BMI 26.8
[2023-03-26 19:55] VITALS: BP 121/77; PULSE 93; RESP 16; TEMP 36.7
== END 2023-03-26 19:58 | disposition home or self-care (01) ==
PROVIDERS: Emergency Provider Nurse Practitioner Family; PCP Nurse Practitioner Family
DX: H61.22 Impacted cerumen, left ear (principal); H92.02 Otalgia, left ear
CPT/HCPCS: 99212; 99214; G0463

== ENCOUNTER → 2023-05-16 08:13 | Outpatient (CLI) | payer BC, SELFPAY ==
--- NOTE | 2023-05-16 08:18 | MR_ITS ---
FINAL REPORT CLINICAL HISTORY: KNEE PAIN AROUND PATELLA...EVAL FOR TEAR FINDINGS: Multi planar MR imaging was performed of the right knee. The anterior and posterior cruciate ligaments are intact. The quadriceps and patellar tendons are intact. The medial and lateral menisci are intact without evidence of tear. The medial and lateral collateral ligaments appear intact. The medial and lateral retinacula appear intact. There is bone marrow edema and grade 1-2 chondromalacia of the medial and lateral facets of the patella. This is best seen on images 8. Through 11 on series number 3. A small joint effusion is present. No evidence of soft tissue inflammatory reaction. 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 Small joint effusion. Reviewed, Interpreted and Dictated by Saqib Alvarez MD Transcribed by Selma Ojeda Authenticated and [facility]
== END ==
PROVIDERS: PCP Nurse Practitioner Family; Visit Provider Orthopaedic Surgery
DX: M25.562 Pain in left knee (principal); M23.92 Unspecified internal derangement of left knee
CPT/HCPCS: 73721

== ENCOUNTER → 2023-08-06 10:29 | Outpatient (CLI) | payer BC, SELFPAY ==
[2023-08-06 10:43] LABS: Basophils % 0.6 % (0.1-2.0); Eosinophils # 0.2 K/mm3 (0.0-0.4); Eosinophils % 2.4 % (0.1-12.0); Hematocrit 41.8 % (37.0-47.0); Hemoglobin 13.2 g/dL (12.2-16.2); Lymphocytes # 2.2 K/mm3 (0.7-4.5); Lymphocytes % 28.1 % (10-50); Mean Corpuscular HGB Conc 31.5 g/dL (31.8-35.4); Mean Corpuscular Hemoglobin 28.6 pg (27.0-31.2); Mean Corpuscular Volume 90.8 fl (81-99); Mean Platelet Volume 7.6 fl (7.4-10.4); Monocytes # 0.3 K/mm3 (0.1-1.0); Monocytes % 4.3 % (1.7-9.3); Neutrophils % 64.6 % (37.0-80.0); Platelet Count 328 K/mm3 (142-424); Red Cell Distribution Width 13.2 % (11.5-17.5); White Blood Count 7.7 K/mm3 (4.8-10.8)
[2023-08-06 12:06] LABS: Chloride 105 mmol/L (98-107); Potassium 4.4 mmoL/L (3.5-5.1); Sodium 143 mmol/L (136-145)
[2023-08-06 12:09] LABS: Alanine Aminotransferase 32 U/L (12-78); Albumin Level 4.1 g/dl (3.5-5.0); Albumin/Globulin Ratio 1.3 (1.1-1.8); Alkaline Phosphatase 90 U/L (38-126); Anion Gap 14.4 mEq/L (5-15); Aspartate Amino Transferase 32 U/L (14-36); Bilirubin,Total 0.9 mg/dl (0.2-1.3); Blood Urea Nitrogen 14 mg/dl (7-17); Calcium 9.4 mg/dl (8.4-10.2); Carbon Dioxide 28 mmol/L (22.0-30.0); Cholesterol 212 mg/dl (140-200); Estimated Glomerular Filt Rate 91 ml/min (>60); GFR (African American) 110 ML/MIN (>60); Globulin 3.2 g/dL (1.3-3.2); Glucose 82 mg/dl (74-100); Total Protein,Serum 7.3 g/dl (6.3-8.2); Triglycerides 128 mg/dl (30-150); VLDL Cholesterol 26 mg/dL (0-40)
[2023-08-06 12:10] LABS: Chol/HDL Ratio 4.5 (1-3.5); HDL Cholesterol 47 mg/dl (40-60)
[2023-08-06 12:21] LABS: Direct LDL Cholesterol 119.26 mg/dL (100-129)
[2023-08-06 12:26] LABS: T4 (Thyroxine) 6.4 ug/dl (5.53-11.0)
[2023-08-06 12:40] LABS: Thyroid Stimulating Hormone 0.98 uIU/mL (0.465-4.68)
[2023-08-07 12:50] LABS: Triiodothyronine (T3) Free 3.1 pg/mL (2.0-4.4)
== END ==
PROVIDERS: PCP Nurse Practitioner Family; Visit Provider Nurse Practitioner Family
DX: R10.9 Unspecified abdominal pain (principal); R79.89 Other specified abnormal findings of blood chemistry; L29.9 Pruritus, unspecified; Z13.220 Encounter for screening for lipoid disorders; Z79.899 Other long term (current) drug therapy
CPT/HCPCS: 36415; 80053; 80061; 84436; 84443; 84481; 85025

== ENCOUNTER 2023-10-29 07:59 | Emergency (ER) | payer BC, SELFPAY ==
[2023-10-29 08:05] VITALS: BP 127/87; PULSE 77; RESP 18; TEMP 36.8; O2SAT 100; BMI 27.2
[2023-10-29 08:18] LABS: UTC Strep Screen (Rapid) Negative (Negative)
--- NOTE | 2023-10-29 08:23 | EXP.UTC ---
Discharge Plan Disposition Patient Disposition: Home, Self-Care Condition: Good Prescriptions Prescriptions: New azithromycin [azithromycin] 250 mg tablet 250 mg PO DIRECTED Qty: 6 0RF Rx Instructions: Take two (2) tablets on day #1, then one (1) tablet day #2 thru #5 No Action sertraline [Zoloft] 25 mg tablet 25 mg PO DAILY Linzess 72 mcg capsule 72 mcg PO PRN Nurtec ODT 75 mg tablet,disintegrating 75 mg PO ONCE PRN (Reason: migraine headache) Qty: 8 5RF Rx Instructions: Place 1 pill under tongue at onset of headache. Max dose 75 mg in 24 hours. Referrals Follow up/Referrals: Gabrielle Birch APRN [Primary Care Provider] - See instructions Activity Restrictions/Add. Instructions Additional Instructions/Restrictions: Start antibiotics today be sure to take it as ordered with the full length of time although you should start feeling better in 24-48 hours. Change toothbrush and toothpaste 24-48 hours after starting antibiotics Tylenol or Motrin as needed for fever or pain Encourage fluids, water, Gatorade, Powerade, try cold fluids, popsicles, ice cream will make it feel better You are contagious for 24 hours. Avoid kissing anyone, no eating or drinking after anyone. You are contagious. Follow-up the ER for new or worsening symptoms or no noticeable improvement over the next 24-48 hours. Follow-up with PCP this week. Clinical Impressions Clinical Impression: Strep throat Instructions Patient Instructions: DI for Strep Throat Discharge ED Provider: Luis Alfredo ([facility])Marybeth [facility] [place] HPI General Stated complaint: sore throat Mode of Arrival: Ambulatory Source of Information: Patient Limitations: No Limitations Time Seen by Provider: 10/29/23 08:24 Description of Symptoms (Recalled from Triage Doc. by RN): sore throat HEENT Symptoms (Recalled from RN notes): Yes Resp Symptoms (Recalled from RN notes): No Skin Symptoms (Recalled from RN notes): No MS Symptoms (Recalled from RN notes): No Functional Status (Recalled from RN notes): n/a History of Present Illness Provider Complaint: 43 yr old female presents for sore throat for 1 week and becoming worse. pt states this feels like when she has strep. Related Data Home Medications Medication Instructions Recorded Confirmed sertraline 25 mg tablet (Zoloft) 25 mg PO DAILY MOOD 11/05/21 05/23/23 linaclotide 72 mcg capsule 72 mcg PO PRN 11/25/22 08/10/23 (Linzess) Previous Rx's Medication Instructions Recorded rimegepant 75 mg disintegrating 75 mg PO ONCE PRN migraine 05/23/23 tablet (Nurtec ODT) headache #8 tabs azithromycin 250 mg tablet 250 mg PO DIRECTED #6 tabs 10/29/23 Allergies Allergy/AdvReac Type Severity Reaction Status Date / Time No Known Allergies Allergy Verified 10/29/23 08:12 Worker's Comp Is this a Worker's Comp case?: No PFSH PFS Disclaimer: The information contained in this section may have been updated after the patient was seen, as this information can be updated by other users. 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
[2023-10-29 08:47] VITALS: BP 127/87; PULSE 77; RESP 18; TEMP 36.8; O2SAT 100
== END 2023-10-29 08:35 | disposition home or self-care (01) ==
PROVIDERS: Emergency Provider Nurse Practitioner Family; PCP Nurse Practitioner Family
DX: J02.0 Streptococcal pharyngitis (principal); R07.0 Pain in throat
CPT/HCPCS: 87880; 99212; 99214; G0463

== ENCOUNTER 2024-01-16 19:56 | Outpatient (CLI) | payer BC, SELFPAY ==
[2024-01-16 16:52] LABS: Coronavirus 19, PCR Not Detected (NotDetected); Influenza A, PCR Not Detected (NotDetected); Influenza B, PCR Not Detected (NotDetected)
[2024-01-16 17:06] LABS: Basophils % 0.2 % (0.1-2.0); Eosinophils # 0.1 K/mm3 (0.0-0.4); Eosinophils % 0.8 % (0.1-12.0); Hematocrit 37.5 % (37.0-47.0); Hemoglobin 12.6 g/dL (12.2-16.2); Lymphocytes # 1.9 K/mm3 (0.7-4.5); Mean Corpuscular HGB Conc 33.7 g/dL (31.8-35.4); Mean Corpuscular Hemoglobin 30.1 pg (27.0-31.2); Mean Corpuscular Volume 89.3 fl (81-99); Mean Platelet Volume 8.1 fl (7.4-10.4); Monocytes # 0.4 K/mm3 (0.1-1.0); Neutrophils # 4.9 K/mm3 (1.8-7.8); Neutrophils % 66.9 % (37.0-80.0); Platelet Count 315 K/mm3 (142-424); Red Cell Distribution Width 13.4 % (11.5-17.5); White Blood Count 7.3 K/mm3 (4.8-10.8)
[2024-01-16 17:28] LABS: Alanine Aminotransferase 19 U/L (12-78); Albumin Level 4.6 g/dl (3.5-5.0); Albumin/Globulin Ratio 1.6 (1.1-1.8); Alkaline Phosphatase 84 U/L (38-126); Amylase 57 U/L (30-110); Anion Gap 13.1 mEq/L (5-15); Aspartate Amino Transferase 25 U/L (14-36); Bilirubin,Total 0.7 mg/dl (0.2-1.3); Blood Urea Nitrogen 12 mg/dl (7-17); Calcium 9.3 mg/dl (8.4-10.2); Carbon Dioxide 29 mmol/L (22.0-30.0); Chloride 103 mmol/L (98-107); Estimated Glomerular Filt Rate 109 ml/min (>60); GFR (African American) 131 ML/MIN (>60); Globulin 2.8 g/dL (1.3-3.2); Glucose 83 mg/dl (74-100); Lipase 91 U/L (23-300); Potassium 4.1 mmoL/L (3.5-5.1); Sodium 141 mmol/L (136-145); Total Protein,Serum 7.4 g/dl (6.3-8.2)
[2024-01-16 17:44] LABS: Free T4 (Free Thyroxine) 0.83 ng/dl (0.78-2.19)
[2024-01-16 17:58] LABS: Thyroid Stimulating Hormone 1.64 uIU/mL (0.465-4.68)
[2024-01-16 18:17] LABS: Vitamin B12 562 pg/mL (239-931)
[2024-01-16 21:15] LABS: 25-OH Vitamin D, Total 30.9 ng/mL (30-100)
[2024-01-16 21:32] LABS: Ferritin 17.1 ng/ml (6.24-137)
[2024-01-18 04:09] LABS: Triiodothyronine (T3) Free 3.2 pg/mL (2.0-4.4)
[2024-01-18 16:18] LABS: EBV Ab VCA, IgG >600.0 U/mL (0.0-17.9); EBV Ab VCA, IgM <36.0 U/mL (0.0-35.9)
[2024-01-22 09:43] LABS: Antinuclear Antibodies (ANA) Negative
== END 2024-01-16 23:59 ==
LOC: LAB.DROPOF 19:57
PROVIDERS: PCP Nurse Practitioner Family; Visit Provider Nurse Practitioner Family
DX: R10.9 Unspecified abdominal pain (principal); R11.0 Nausea; R05.9 Cough, unspecified; R51.9 Headache, unspecified; L29.9 Pruritus, unspecified; R53.83 Other fatigue; R79.89 Other specified abnormal findings of blood chemistry
CPT/HCPCS: 80053; 82150; 82306; 82607; 82728; 83690; 84439; 84443; 84481; 85025; 86038; 86225; 86235; 86664; 86665; 87070; 87636

== ENCOUNTER 2024-01-17 10:47 | Outpatient (CLI) | payer BC, SELFPAY ==
[2024-01-18 04:09] LABS: AFP, Tumor Marker <1.8 ng/mL (0.0-6.4); CA 19-9 23 U/mL (0-35)
== END 2024-01-17 23:59 ==
LOC: LAB 10:47
PROVIDERS: PCP Nurse Practitioner Family; Visit Provider Nurse Practitioner Family
DX: R10.9 Unspecified abdominal pain (principal); R11.0 Nausea; L29.9 Pruritus, unspecified; R53.83 Other fatigue; R79.89 Other specified abnormal findings of blood chemistry
CPT/HCPCS: 36415; 82105; 86316

== ENCOUNTER 2024-02-03 08:24 | Outpatient (CLI) | payer BC, SELFPAY ==
--- NOTE | 2024-02-03 08:25 | CT_ITS ---
FINAL REPORT CLINICAL HISTORY: right sided abd pain COMPARISON: None FINDINGS: CT OF THE ABDOMEN AND PELVIS WITH CONTRAST Axial CT images of the abdomen and pelvis were obtained after the administration of IV contrast. Coronal reformatted images were also obtained and reviewed. This study was performed with techniques to keep radiation doses as low as reasonably achievable (ALARA). Individualized dose reduction techniques using automated exposure control or adjustment of mA and/or kV according to the patient's size were employed. Abdomen: There is mild atelectasis in the lung bases.. The heart is normal in size. There is a less than 1 cm probable cyst in the left hepatic lobe. Postcholecystectomy. The spleen is unremarkable. No adrenal mass is present. The pancreas has an unremarkable appearance. The kidneys are normal, without evidence of mass or hydronephrosis. The aorta is normal in caliber. There is no free fluid or adenopathy. No mass or abnormal fluid collection is seen. Pelvis: The appendix normal. There is mild wall thickening of the sigmoid colon and rectum which may represent colitis. The urinary bladder is unremarkable. There is an 18 mm left ovarian cyst. There are multiple mildly enlarged inguinal nodes which are nonspecific but likely reactive. There is no evidence of mass or adenopathy. There is no evidence of bowel obstruction. IMPRESSION: Possible colitis. Left ovarian cyst. Mild wall thickening of the sigmoid colon. Likely reactive enlarged inguinal nodes. Reviewed, Interpreted and Dictated by Masood Ni III, MD Transcribed by Celeste Connell Authenticated and [facility]
[2024-02-03] MEDS: IOPAMIDOL-370 (76%);100ML BOTTLE 75 ML IV (08:54)
[2024-02-03] MEDS: SODIUM CHLORIDE 0.9% 10ML SYR (RAD ONLY) 10 ML IV (08:54)
--- NOTE | 2024-02-03 09:58 | XR_ITS ---
FINAL REPORT CLINICAL HISTORY: chest pain COMPARISON: 10/27/2022 FINDINGS: Two views of the chest were obtained. The heart size and pulmonary vascularity are within normal limits. The mediastinum is normal. No acute pulmonary abnormality is identified. There is no pneumothorax. The bony thorax is intact. IMPRESSION: No active cardiopulmonary disease. Reviewed, Interpreted and Dictated by Masood Ni III, MD Transcribed by Selma Ojeda Authenticated and [facility]
[2024-02-03 10:39] LABS: Basophils % 0.3 % (0.1-2.0); Eosinophils # 0.1 K/mm3 (0.0-0.4); Eosinophils % 1.4 % (0.1-12.0); Hematocrit 39.6 % (37.0-47.0); Hemoglobin 12.8 g/dL (12.2-16.2); Lymphocytes # 2.4 K/mm3 (0.7-4.5); Mean Corpuscular HGB Conc 32.4 g/dL (31.8-35.4); Mean Corpuscular Hemoglobin 30.4 pg (27.0-31.2); Mean Corpuscular Volume 93.8 fl (81-99); Mean Platelet Volume 7.6 fl (7.4-10.4); Monocytes # 0.4 K/mm3 (0.1-1.0); Monocytes % 4.1 % (1.7-9.3); Neutrophils # 5.7 K/mm3 (1.8-7.8); Neutrophils % 66.3 % (37.0-80.0); Platelet Count 302 K/mm3 (142-424); Red Blood Count 4.22 M/mm3 (4.20-5.40); Red Cell Distribution Width 13.4 % (11.5-17.5); White Blood Count 8.6 K/mm3 (4.8-10.8)
[2024-02-03 11:05] LABS: Hemoglobin A1C 5.1 % (4.0-6.0)
[2024-02-03 11:14] LABS: Alanine Aminotransferase 21 U/L (12-78); Albumin Level 4.6 g/dl (3.5-5.0); Albumin/Globulin Ratio 1.8 (1.1-1.8); Alkaline Phosphatase 90 U/L (38-126); Anion Gap 9.1 mEq/L (5-15); Aspartate Amino Transferase 27 U/L (14-36); Bilirubin,Total 0.9 mg/dl (0.2-1.3); Blood Urea Nitrogen 12 mg/dl (7-17); Calcium 9.2 mg/dl (8.4-10.2); Carbon Dioxide 30 mmol/L (22.0-30.0); Chloride 103 mmol/L (98-107); Estimated Glomerular Filt Rate 109 ml/min (>60); GFR (African American) 131 ML/MIN (>60); Globulin 2.6 g/dL (1.3-3.2); Glucose 93 mg/dl (74-100); Potassium 4.1 mmoL/L (3.5-5.1); Sodium 138 mmol/L (136-145); Total Protein,Serum 7.2 g/dl (6.3-8.2)
[2024-02-03 11:31] LABS: T4 (Thyroxine) 6.8 ug/dl (5.53-11.0)
[2024-02-03 11:44] LABS: Thyroid Stimulating Hormone 1.31 uIU/mL (0.465-4.68)
[2024-02-04 15:51] LABS: Progesterone 0.7 ng/mL (.); Thyroid Peroxidase Antibodies 22 IU/mL (0-34)
[2024-02-05 12:09] LABS: Insulin Level Total 9.9 uIU/mL (2.6-24.9)
[2024-02-06 16:42] LABS: Thyroglobulin Level <1.0 IU/mL (0.0-0.9)
[2024-02-08 16:22] LABS: Free Testosterone (Direct) 2.6 pg/mL (0.0-4.2); Testosterone, Total, LC/MS 27.1 ng/dL (.)
[2024-02-13 00:07] LABS: Magnesium,RBC 4.9 mg/dL (3.7-7.0)
[2024-02-13 09:37] LABS: Triiodothyronine (T3) Reverse 19.9
== END 2024-02-03 23:59 ==
PROVIDERS: PCP Nurse Practitioner Family; Visit Provider Nurse Practitioner Family
DX: R10.9 Unspecified abdominal pain (principal); R07.9 Chest pain, unspecified; R42 Dizziness and giddiness; R05.1 Acute cough; N80.9 Endometriosis, unspecified; E01.0 Iodine-deficiency related diffuse (endemic) goiter; R53.83 Other fatigue; R63.5 Abnormal weight gain; Z68.28 Body mass index [BMI] 28.0-28.9, adult
CPT/HCPCS: 36415; 71046; 74177; 80053; 82533; 82626; 82670; 83036; 83525; 83735; 84144; 84436; 84443; 84481; 84482; 85025; 86376; 86800; Q9967

== ENCOUNTER 2024-03-10 08:11 | Emergency (ER) | payer BC, SELFPAY ==
[2024-03-10 08:20] VITALS: BP 109/63; PULSE 78; RESP 20; TEMP 36.8; O2SAT 97; BMI 28.5
--- NOTE | 2024-03-10 08:34 | ED_ITS ---
Discharge Plan Disposition Patient Disposition: Home, Self-Care Condition: Good Prescriptions Prescriptions: New cephalexin 500 mg tablet 500 mg PO BID 7 Days Qty: 14 0RF No Action Nurtec ODT 75 mg tablet,disintegrating 75 mg PO ONCE PRN (Reason: migraine headache) Qty: 8 5RF Rx Instructions: Place 1 pill under tongue at onset of headache. Max dose 75 mg in 24 hours. loratadine 10 mg tablet 10 mg PO DAILY Linzess 72 mcg capsule 72 mcg PO PRN methylprednisolone [Medrol (River)] 4 mg tablets,dose pack See Rx Instructions PO PER PKG DIR Qty: 21 0RF Rx Instructions: PO PER PKG DIR for 6 days sertraline [Zoloft] 25 mg tablet 25 mg PO DAILY 90 Days Qty: 90 1RF Referrals Follow up/Referrals: Gabrielle Birch APRN [Primary Care Provider] - See instructions Activity Restrictions/Add. Instructions Additional Instructions/Restrictions: Increase fluids, water and not soda or tea. Can drink cranberry juice or cranberry extract. Wipe front to back Wear cotton underwear Empty bladder after intercourse Start antibiotics immediately and make sure you take the full course although you may start to see improvement over the next 48 hours. You can eat yogurt or take probiotics to decrease diarrhea or yeast infection caused by the antibiotic Be sure to follow-up anytime for new or worsening symptoms in 48 hours for wound urine culture results be sure to let you PCP no recent urine for culture so they can request records and ensure that you have appropriate antibiotic if you are not getting better or getting worse. If symptoms worsen or do not improve return or be seen in the ER. Follow-up with primary care this week. Clinical Impressions Clinical Impression: UTI (urinary tract infection) Instructions Patient Instructions: DI for Urinary Tract Infection (UTI) Discharge ED Provider: Luis Alfredo ([facility])Marybeth [facility] [place] HPI General Stated complaint: possible UTI Mode of Arrival: Ambulatory Source of Information: Patient Limitations: No Limitations Time Seen by Provider: 03/10/24 08:34 Description of Symptoms (Recalled from Triage Doc. by RN): burning,freq,urgency, low back pain and pelvic pain since yesterday GI/ Symptoms (Recalled from RN notes): Yes History of Present Illness Provider Complaint: 43 yr old female presents with c/o burning,freq,urgency, low back pain and pelvic pain since yesterday Related Data Home Medications Medication Instructions Recorded Confirmed linaclotide 72 mcg capsule 72 mcg PO PRN 11/25/22 02/03/24 (Linzess) loratadine 10 mg tablet 10 mg PO DAILY 01/16/24 02/03/24 Previous Rx's Medication Instructions Recorded rimegepant 75 mg disintegrating 75 mg PO ONCE PRN migraine 11/24/23 tablet (Nurtec ODT) headache #8 tabs sertraline 25 mg tablet (Zoloft) 25 mg PO DAILY MOOD 90 days #90 02/02/24 tabs methylprednisolone 4 mg tablets in See Rx Instructions PO PER PKG DIR 02/03/24 a dose pack (Medrol (River)) #21 tabs cephalexin 500 mg tablet 500 mg PO BID 7 days #14 tabs 03/10/24 Allergies Allergy/AdvReac Type Severity Reaction Status Date / Time No Known Allergies Allergy Verified 02/03/24 09:21 [facility] Disclaimer: The information contained in this section may have been updated after the patient was seen, as this information can be updated by other users. 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) Smoking Status: Never smoker alcohol intake: current substance use type: denies use current occupational status: employed Travel in the last 8 weeks: None household members: spouse and children housing: house ROS Obtained: Yes All systems reviewed & no additional complaints except as documented Constitutional Constitutional: Reports system reviewed and no additional complaints, except as documented, Reports as per HPI and Denies fever(s) Eyes Eyes: Reports system reviewed and no additional complaints, except as documented ENT Ears, Nose, Mouth, and Throat: Reports system reviewed and no additional complaints, except as documented Cardiovascular Cardiovascular: Reports system reviewed and no additional complaints, except as documented Respiratory Respiratory: Reports system reviewed and no additional complaints, except as documented Genitourinary Female Genitourinary: Reports system reviewed and no additional complaints, except as documented, Reports as per HPI, Reports dysuria, Reports urinary frequency, Reports urinary hesitancy, Reports urinary urgency and Reports other (urine having strong smell) Musculoskeletal Musculoskeletal: Reports system reviewed and no additional complaints, except as documented Integumentary/Breasts Skin/Breast: Reports system reviewed and no additional complaints, except as documented Neurologic Neurologic: Reports system reviewed and no additional complaints, except as documented Endocrine Endocrine: Reports system reviewed and no additional complaints, except as documented Hematologic/Lymphatic Henatologic/Lymphatic: Reports system reviewed and no additional complaints, except as documented Allergic/Immunologic Allergic/Immunologic: Reports system reviewed and no additional complaints, except as documented Physical Exam General General appearance: alert and in no apparent distress Head Head exam: atraumatic, normocephalic and normal inspection Eye Eye exam: Present normal appearance and PERRL ENT ENT exam: Present normal exam, mucous membranes moist and normal external ear exam Neck Neck exam: Present normal inspection, full ROM and trachea midline; Absent meningismus or lymphadenopathy Respiratory Respiratory exam: Present normal lung sounds bilaterally; Absent respiratory distress Cardiovascular Cardiovascular exam: Present regular rate and normal rhythm; Absent JVD Abdominal Exam Abdominal exam: Absent distention, tenderness or guarding Extremities Exam Extremities exam: Present normal inspection, full ROM and normal capillary refill; Absent calf tenderness Back Exam Back exam: Present normal inspection, tenderness, CVA tenderness (R) and CVA tenderness (L) Back 1 view image: 2 1. Neurological Exam Neurological exam: Present alert and oriented X3 Skin Skin exam: Present warm, dry, intact and normal color Medical Decision Making Medical Records Medical records reviewed: Yes I reviewed the patient's medical records. Lai Inquiry Pt receiving controlled substance: No Lai was queried for this patient: No
[2024-03-10 08:35] LABS: Apearance,Urine Cloudy (Clear); Color,Urine Yellow (Yellow)
[2024-03-10 08:36] LABS: Bilirubin,Urine 1+ (Negative); Blood, Urine Trace (Negative); Glucose,Urine (UA) Negative (Negative); Ketones,Urine Negative (Negative); PH,Urine 6.5 (5.0-8.5); Protein,Urine 1+ (Negative); Specific Gravity, Urine 1.025 (1.005-1.030); UTC Leukocyte Esterase,Urine Negative (Negative); UTC Nitrate,Urine Negative (Negative); Urobilinogen,Urine 0.2 EU/dl (0.2)
[2024-03-10 08:42] VITALS: BP 109/63; PULSE 78; RESP 20; TEMP 36.8; O2SAT 97
== END 2024-03-10 08:44 | disposition home or self-care (01) ==
PROVIDERS: Emergency Provider Nurse Practitioner Family; PCP Nurse Practitioner Family
DX: N39.0 Urinary tract infection, site not specified (principal); B96.89 Other specified bacterial agents as the cause of diseases classified elsewhere; M54.59 Other low back pain; R10.2 Pelvic and perineal pain
CPT/HCPCS: 81003; 87086; 99212; 99214; G0463

== ENCOUNTER 2024-09-05 14:11 | Outpatient (CLI) | payer BC, SELFPAY ==
[2024-09-05 12:36] LABS: Coronavirus 19, PCR Not Detected (NotDetected); Influenza A, PCR Not Detected (NotDetected); Influenza B, PCR Not Detected (NotDetected)
== END 2024-09-05 23:59 | disposition home or self-care (01) ==
LOC: LAB.DROPOF 14:11
PROVIDERS: PCP Nurse Practitioner Family; Visit Provider Nurse Practitioner Family
DX: R50.9 Fever, unspecified (principal)
CPT/HCPCS: 87636

== ENCOUNTER 2024-09-16 08:56 | Emergency (ER) | payer BC, SELFPAY ==
[2024-09-16 09:06] VITALS: BP 138/72; PULSE 111; RESP 20; TEMP 36.8; O2SAT 98; BMI 28.3
--- NOTE | 2024-09-16 09:07 | XR_ITS ---
PROCEDURE INFORMATION: Exam: XR Chest Exam date and time: 09/16/2024 9:08 AM Age: 44 years old Clinical indication: Cough and shortness of breath TECHNIQUE: Imaging protocol: Radiologic exam of the chest. Views: 2 views. COMPARISON: CR XR CHEST 2V 02/03/2024 10:36 AM FINDINGS: Lungs: Unremarkable. No consolidation. Pleural spaces: Unremarkable. No pleural effusion. No pneumothorax. Heart/Mediastinum: Unremarkable. No cardiomegaly. Bones/joints: Unremarkable. IMPRESSION: No acute findings.
--- NOTE | 2024-09-16 09:18 | EXP.UTC ---
Discharge Plan Disposition Patient Disposition: Home, Self-Care Condition: Good Prescriptions Prescriptions: New promethazine-DM 6.25-15 mg/5 mL Syrup 5 ml PO Q6H PRN (Reason: Cough) Qty: 240 0RF benzonatate 100 mg capsule 100 mg PO TIDP PRN (Reason: Cough) Qty: 30 0RF methylprednisolone 4 mg Tablets,Dose Pack 4 mg PO DIRECTED 6 Days Qty: 21 0RF Rx Instructions: Take 1 pack as directed for 6 days amoxicillin-pot clavulanate 875-125 mg Tablet 1 tab PO Q12H Qty: 20 0RF No Action Nurtec ODT 75 mg tablet,disintegrating 75 mg PO ONCE PRN (Reason: migraine headache) Qty: 8 5RF Rx Instructions: Place 1 pill under tongue at onset of headache. Max dose 75 mg in 24 hours. sertraline [Zoloft] 25 mg tablet 25 mg PO DAILY 90 Days Qty: 90 1RF Referrals Follow up/Referrals: Gabrielle Birch APRN [Primary Care Provider] - See instructions Activity Restrictions/Add. Instructions Additional Instructions/Restrictions: Drink plenty of fluids. Take tylenol or ibuprofen for pain or fever. Take the medications as directed. Follow up with your regular doctor. GO TO THE ER FOR ANY WORSENING SYMPTOMS Don't start the oral steroids (medrol dose pack) until tomorrow since you had the shot here The cough syrup (promethazine dm) will make you drowsy, so don't drive or operate heavy machinery after taking it. Clinical Impressions Clinical Impression: Acute bronchitis, Sinusitis Stand Alone Forms Stand Alone Forms: Work/School Release Instructions Patient Instructions: DI for Acute Bronchitis, Promethazine, Ceftriaxone Injection, Dexamethasone Injection Print Language Print Language: Icelandic Discharge ED Provider: Rafael Sandoval [facility] [place] H[place] General Stated complaint: Chest congestion, cough Mode of Arrival: Ambulatory Source of Information: Patient Limitations: No Limitations Time Seen by Provider: 09/16/24 09:18 Description of Symptoms (Recalled from Triage Doc. by RN): CHEST CONGESTION, NASAL CONGESTION, COUGHING UP GREEN AND YELLOWISH DRAINAGE HEENT Symptoms (Recalled from RN notes): Yes Resp Symptoms (Recalled from RN notes): Yes Skin Symptoms (Recalled from RN notes): No MS Symptoms (Recalled from RN notes): No Functional Status (Recalled from RN notes): WNL History of Present Illness Provider Complaint: She states that for the past 2 weeks she has had worsening chest congestion, productive cough and sinus congestion. She denies fever, but she has had chills. Related Data Previous Rx's ?Medication ?Instructions ?Recorded rimegepant 75 mg disintegrating 75 mg PO ONCE PRN migraine 11/24/23 tablet (Nurtec ODT) headache #8 tabs sertraline 25 mg tablet (Zoloft) 25 mg PO DAILY MOOD 90 days #90 07/23/24 tabs amoxicillin 875 mg-potassium 1 tab PO Q12H #20 tabs 09/16/24 clavulanate 125 mg tablet benzonatate 100 mg capsule 100 mg PO TIDP PRN Cough #30 caps 09/16/24 methylprednisolone 4 mg tablets in 4 mg PO DIRECTED 6 days #21 tabs 09/16/24 a dose pack promethazine-DM 6.25 mg-15 mg/5 mL 5 ml PO Q6H PRN Cough #240 mL 09/16/24 oral syrup Allergies Allergy/AdvReac Type Severity Reaction Status Date / Time No Known Allergies Allergy Verified 09/05/24 11:59 Worker's Comp Is this a Worker's Comp case?: No [facility] Disclaimer: The information contained in this section may have been updated after the patient was seen, as this information can be updated by other users. Medical History Anxiety 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 H/O sinus surgery History of tonsillectomy Hx of cholecystectomy Family History Other Coronary artery disease Diabetes Headache Heart attack Hypertension 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 Smoking Status: Never smoker alcohol intake: current alcohol intake frequency: holidays/special occasions only substance use type: denies use current occupational status: employed Travel in the last 8 weeks: None household members: spouse and children housing: house ROS Obtained: Yes All systems reviewed & no additional complaints except as documented Constitutional Constitutional: Reports chills and Reports fever(s) Eyes Eyes: Denies eye discharge ENT Ears, Nose, Mouth, and Throat: Reports as per HPI Cardiovascular Cardiovascular: Denies chest pain Respiratory Respiratory: Denies chest congestion and Reports cough Gastrointestinal Gastrointestingal: Reports nausea; Denies abdominal pain, constipation, cramping, diarrhea or vomiting Musculoskeletal Musculoskeletal: Denies arthralgias Integumentary/Breasts Skin/Breast: Denies rash Neurologic Neurologic: Denies paresthesias Physical Exam General General appearance: alert and in no apparent distress Eye Eye exam: Present normal appearance, PERRL and EOMI ENT ENT exam: Present mucous membranes moist and normal external ear exam Expanded ENT Exam External ear exam: Present normal external inspection TM/Canal exam: Bilateral TM: erythema and bulging Nose exam: Absent sinus tenderness Nasal speculum exam: Bilateral: normal Mouth exam: Present normal external inspection; Absent drooling Teeth exam: Present normal inspection Throat exam: Present tonsillar erythema and tonsillomegaly Neck Neck exam: Present normal inspection, full ROM and trachea midline; Absent tenderness, lymphadenopathy or thyromegaly Chest Chest inspection: Present normal inspection and symmetric chest wall rise; Absent tenderness or rash Respiratory Respiratory exam: Present normal lung sounds bilaterally; Absent respiratory distress, wheezes, stridor or accessory muscle use Cardiovascular Cardiovascular exam: Present regular rate, normal rhythm and normal heart sounds Abdominal Exam Abdominal exam: Present soft; Absent distention, tenderness, guarding, rebound or rigidity Extremities Exam Extremities exam: Present normal inspection, full ROM and normal capillary refill; Absent tenderness or calf tenderness Back Exam Back exam: Present normal inspection and full ROM; Absent tenderness Neurological Exam Neurological exam: Present alert and oriented X3 Psychiatric Psychiatric exam: Present normal affect and normal mood Skin Skin exam: Present warm, dry, intact and normal color Lymphatic Lymphatic Findings: no adenopathy Medical Decision Making Medical Records Medical records reviewed: No I reviewed the patient's medical records. Screening: Per USPSTF and CDC recommendations, given the prevalence of disease in our region, it is our hospital?s policy to screen for HIV and viral Hepatitis for all patients aged 18 and over and those with ongoing risk factors. Lai Inquiry Pt receiving controlled substance: No Vital Signs: 09/16/24 09:06 Temperature 98.2 F Temperature Source Oral Pulse Rate [Left Brachial] 111 H Respiratory Rate 20 Blood Pressure [Left Arm] 138/72 Blood Pressure Mean [Left Arm] 94 02 Sat by Pulse Oximetry 98 Lab Data Lab results reviewed: Yes I reviewed the patient's lab results. Orders (Tests/Meds): ORDERS Category Date Time Status Chest XR 2 view (NOT portable) [XR chest 2V] Stat Exams 09/16/24 09:07 Ordered Radiology Data #1: Image(s): Chest Image Reviewed: Yes I reviewed the patient's radiology image and Yes I have reviewed radiologist's interpretation Preliminary Findings: No Infiltrates Seen
[2024-09-16] MEDS: cefTRIAXone 1GM VIAL 1 GM IM (09:27)
[2024-09-16] MEDS: DEXAMETHASONE 4MG/ML 1ML VIAL 8 MG IM (09:27)
[2024-09-16] MEDS: LIDOCAINE 1% 5ML PF VIAL IM (09:28)
[2024-09-16 09:42] VITALS: BP 138/72; PULSE 111; RESP 20; TEMP 36.8
== END 2024-09-16 09:47 | disposition home or self-care (01) ==
PROVIDERS: Emergency Provider Nurse Practitioner Family; PCP Nurse Practitioner Family
DX: J20.9 Acute bronchitis, unspecified (principal); J01.90 Acute sinusitis, unspecified; R05.9 Cough, unspecified; R09.81 Nasal congestion; R68.83 Chills (without fever)
CPT/HCPCS: 71046; 99212; G0381; J0696; J1100

== ENCOUNTER 2024-10-19 12:56 | Outpatient (CLI) | payer BC, SELFPAY ==
[2024-10-19 12:35] LABS: Adenovirus,PCR Not Detected (NotDetected); Bordetella Pertussis Not Detected (NotDetected); Chlamydophila Pneumoniae, PCR Not Detected (NotDetected); Coronavirus 19, PCR Not Detected (NotDetected); Coronavirus 229E Not Detected (NotDetected); Coronavirus NL63 Not Detected (NotDetected); Coronavirus OC43 Not Detected (NotDetected); Coronovirus HKU1,PCR Not Detected (NotDetected); Human Metapneumovirus Not Detected (NotDetected); Influenza A, PCR Not Detected (NotDetected); Influenza AH1, 2009 Not Detected (NotDetected); Influenza AH1, PCR Not Detected (NotDetected); Influenza AH3,PCR Not Detected (NotDetected); Influenza B, PCR Not Detected (NotDetected); Mycoplasma Pneumoniae, PCR Not Detected (NotDetected); Parainfluenza 1, PCR Not Detected (NotDetected); Parainfluenza 2, PCR Not Detected (NotDetected); Parainfluenza 3, PCR Not Detected (NotDetected); Parainfluenza 4, PCR Not Detected (NotDetected); Respiratory Syncytial Virus Not Detected (NotDetected)
[2024-10-19 13:02] LABS: Basophils # 0.1 K/mm3 (0-0.2); Basophils % 0.8 % (0.1-2.0); Eosinophils # 0.2 K/mm3 (0.0-0.4); Eosinophils % 2.5 % (0.1-12.0); Hematocrit 40.3 % (37.0-47.0); Hemoglobin 13.5 g/dL (12.2-16.2); Lymphocytes % 21.6 % (10-50); Mean Corpuscular HGB Conc 33.6 g/dL (31.8-35.4); Mean Corpuscular Hemoglobin 29.8 pg (27.0-31.2); Mean Corpuscular Volume 88.5 fl (81-99); Mean Platelet Volume 7.7 fl (7.4-10.4); Monocytes # 0.5 K/mm3 (0.1-1.0); Monocytes % 5.4 % (1.7-9.3); Neutrophils # 6.5 K/mm3 (1.8-7.8); Neutrophils % 69.7 % (37.0-80.0); Platelet Count 343 K/mm3 (142-424); Red Blood Count 4.55 M/mm3 (4.20-5.40); Red Cell Distribution Width 13.6 % (11.5-17.5); White Blood Count 9.4 K/mm3 (4.8-10.8)
[2024-10-19 13:26] LABS: Alanine Aminotransferase 18 U/L (12-78); Albumin Level 4.7 g/dl (3.5-5.0); Albumin/Globulin Ratio 1.6 (1.1-1.8); Alkaline Phosphatase 103 U/L (38-126); Anion Gap 15.3 mEq/L (5-15); Aspartate Amino Transferase 26 U/L (14-36); Bilirubin,Total 1.3 mg/dl (0.2-1.3); Blood Urea Nitrogen 11 mg/dl (7-17); Calcium 9.4 mg/dl (8.4-10.2); Carbon Dioxide 25 mmol/L (22.0-30.0); Chloride 104 mmol/L (98-107); Chol/HDL Ratio 4.2 (1-3.5); Cholesterol 210 mg/dl (140-200); Estimated Glomerular Filt Rate 108 ml/min (>60); GFR (African American) 131 ML/MIN (>60); Globulin 2.9 g/dL (1.3-3.2); Glucose 86 mg/dl (74-100); HDL Cholesterol 50 mg/dl (40-60); Potassium 4.3 mmoL/L (3.5-5.1); Sodium 140 mmol/L (136-145); Total Protein,Serum 7.6 g/dl (6.3-8.2); Triglycerides 121 mg/dl (30-150); VLDL Cholesterol 24 mg/dL (0-40)
[2024-10-19 13:37] LABS: Direct LDL Cholesterol 141.97 mg/dL (100-129)
[2024-10-19 13:56] LABS: Thyroid Stimulating Hormone 1.06 uIU/mL (0.465-4.68)
[2024-10-19 14:49] LABS: Rhinovirus/Enterovirus Detected (NotDetected)
== END 2024-10-19 23:59 | disposition home or self-care (01) ==
LOC: LAB.DROPOF 12:56
PROVIDERS: PCP Nurse Practitioner Family; Visit Provider Nurse Practitioner Family
DX: R50.9 Fever, unspecified (principal); Z13.220 Encounter for screening for lipoid disorders; R14.0 Abdominal distension (gaseous); E01.0 Iodine-deficiency related diffuse (endemic) goiter; R79.89 Other specified abnormal findings of blood chemistry
CPT/HCPCS: 80050; 80053; 80061; 82533; 84443; 85025; 87633

== ENCOUNTER 2024-10-26 08:10 | Outpatient (CLI) | payer BC, SELFPAY ==
--- NOTE | 2024-10-26 08:10 | US_ITS ---
FINAL REPORT TECHNIQUE: Sonographic images of the right upper quadrant were obtained. CLINICAL HISTORY: RUQ abd pain, bloating COMPARISON: None FINDINGS: PANCREAS: The tail is obscured. The head is normal. LIVER: Homogeneous. No focal hepatic lesion. No intrahepatic biliary ductal dilatation. The portal vein is patent with normal directional flow. GALLBLADDER: Absent. COMMON DUCT: 4 mm. Normal for age. RIGHT KIDNEY: The right kidney measures 10.3 cm. There is no hydronephrosis, mass, or stone. FREE FLUID: None. IMPRESSION: Unremarkable ultrasound of the right upper quadrant after cholecystectomy. Reviewed, Interpreted and Dictated by Hanane Strong MD Transcribed by Josie Ferrari Authenticated and [facility]
== END 2024-10-26 23:59 | disposition home or self-care (01) ==
LOC: RAD 08:10
PROVIDERS: PCP Nurse Practitioner Family; Visit Provider Nurse Practitioner Family
DX: R10.11 Right upper quadrant pain (principal); R14.0 Abdominal distension (gaseous)
CPT/HCPCS: 76705

== ENCOUNTER 2024-11-22 08:33 | Emergency (ER) | payer BC, SELFPAY ==
[2024-11-22 09:00] VITALS: BP 132/67; PULSE 102; RESP 20; TEMP 36.9; O2SAT 100; BMI 28.3
--- NOTE | 2024-11-22 09:19 | EXP.UTC ---
Discharge Plan Disposition Patient Disposition: Home, Self-Care Condition: Good Prescriptions Prescriptions: New benzonatate 100 mg capsule 100 mg PO TID PRN (Reason: cough) Qty: 30 0RF guaifenesin [Mucinex] 600 mg tablet extended release 12hr 600 mg PO BID PRN (Reason: cough) Qty: 20 0RF methylprednisolone [Medrol (River)] 4 mg tablets,dose pack See Rx Instructions .Route .COMPLEX 6 Days Qty: 21 0RF Rx Instructions: taper pack; doxycycline hyclate 100 mg capsule 100 mg PO BID Qty: 20 0RF No Action Nurtec ODT 75 mg tablet,disintegrating 75 mg PO ONCE PRN (Reason: migraine headache) Qty: 8 5RF Rx Instructions: Place 1 pill under tongue at onset of headache. Max dose 75 mg in 24 hours. sertraline [Zoloft] 25 mg tablet 25 mg PO DAILY 90 Days Qty: 90 1RF Referrals Follow up/Referrals: Gabrielle Birch APRN [Primary Care Provider] - See instructions Activity Restrictions/Add. Instructions Additional Instructions/Restrictions: *Monitor Temp, Over the counter Motrin or Tylenol as directed/as needed Tylenol every 4 hours and Motrin every 6 hours (as long as your family doctor has told you that you can take it) for fever or pain. and straight to ER if unable to lower temp less than 101.0 after medication given *Warm salt water gargles may help to soothe the throat *Throat Lozenges? *Warm fluids like tea with honey may help to soothe the throat? *Sleep elevated *Humidifier/Vaporizer Bromfed may cause drowsiness. Know how it effects you (your child) before driving, caring for small child, or sending your child to school. Not other antihistamines/allergy medications while taking bromfed Your throat swab was sent for culture. Those results are typically sent to your primary care. Be sure to follow up in 2-3 days with your family doctor/primary care physician if no improvement so they can review those result and treat if necessary. If you don?t have a primary care doctor, I recommend you get one but in the mean time, you will have to return to a walk in clinic Follow up IMMEDIATELY for new or worsening symptoms or no Noticeable improvement over the next 48-72 hours. 911 for difficulty breathing or swallowing Clinical Impressions Clinical Impression: Bronchitis Sinusitis Qualifiers: Sinusitis location: unspecified location Chronicity: unspecified Qualified Code(s): J32.9 - Chronic sinusitis, unspecified Instructions Patient Instructions: Sinusitis, Acute Bronchitis, DI for Sinusitis Print Language Print Language: Wolof Discharge ED Provider: Myriam Johnson [facility] [place] HPI General Stated complaint: chest /head congestion fever Mode of Arrival: Ambulatory Source of Information: Patient Limitations: No Limitations Time Seen by Provider: 11/22/24 09:10 Description of Symptoms (Recalled from Triage Doc. by RN): PATIENT C/O HEADACHE, FEVER, NAUSEA, NASAL AND CHEST CONGESTION, YELLOW NASAL DRAINAGE, AND BODY ACHES SINCE TUESDAY HEENT Symptoms (Recalled from RN notes): Yes Resp Symptoms (Recalled from RN notes): No Skin Symptoms (Recalled from RN notes): No MS Symptoms (Recalled from RN notes): No Functional Status (Recalled from RN notes): WNL History of Present Illness Provider Complaint: Patient states that she has been sick on and off for a couple of weeks States that on Tuesday she started feeling bad again with sinus congestion and pressure, cough, fever, nausea, thick yellowish drainage so today when she was still not feeling any better she came in to get checked Related Data Previous Rx's ?Medication ?Instructions ?Recorded rimegepant 75 mg disintegrating 75 mg PO ONCE PRN migraine 11/24/23 tablet (Nurtec ODT) headache #8 tabs sertraline 25 mg tablet (Zoloft) 25 mg PO DAILY MOOD 90 days #90 07/23/24 tabs benzonatate 100 mg capsule 100 mg PO TID PRN cough #30 caps 11/22/24 doxycycline hyclate 100 mg capsule 100 mg PO BID #20 caps 11/22/24 guaifenesin 600 mg tablet, 600 mg PO BID PRN cough #20 tabs 11/22/24 extended release 12 hr (Mucinex) methylprednisolone 4 mg tablets in See Rx Instructions .Route 11/22/24 a dose pack (Medrol (River)) .COMPLEX 6 days #21 tabs Allergies Allergy/AdvReac Type Severity Reaction Status Date / Time No Known Allergies Allergy Verified 10/19/24 09:46 Worker's Comp Is this a Worker's Comp case?: No [facility] Disclaimer: The information contained in this section may have been updated after the patient was seen, as this information can be updated by other users. Medical History Anxiety 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 H/O sinus surgery History of tonsillectomy Hx of cholecystectomy Family History Other Coronary artery disease Diabetes Headache Heart attack Hypertension 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 (Updated 10/19/24 @ 13:17 by Gabrielle Birch APRN) Smoking Status: Never smoker alcohol intake: current alcohol intake frequency: holidays/special occasions only substance use type: denies use current occupational status: employed Travel in the last 8 weeks: None household members: spouse and children housing: house Have you lived/traveled outside US in past 30 days?: No Contact w/someone who lives/traveled outside US past 30 days?: No Exposure to someone with infectious disease in past 14 days?: No Do you have a fever (greater than 100.4 F or 38 C)?: No Have you tested positive for COVID-19: No Exposed to someone with COVID-19 in past 14 days?: No Do you have a sore throat?: Yes Do you have a cough?: Yes Do you have any weakness?: No Do you have any diarrhea?: No Are you experiencing any unusual bleeding?: No Do you have any muscle aches/pain?: No Do you have any abdominal pain?: No Are you experiencing loss of taste or smell?: No ROS Obtained: Yes All systems reviewed & no additional complaints except as documented and Yes Systems reviewed as appropriate & no additional complaints except as documented Constitutional Constitutional: Reports system reviewed and no additional complaints, except as documented, Reports as per HPI, Reports body ache, Reports chills and Reports fever(s) ENT Ears, Nose, Mouth, and Throat: Reports system reviewed and no additional complaints, except as documented, Reports as per HPI, Reports nasal congestion and Reports sinus pressure Cardiovascular Cardiovascular: Reports system reviewed and no additional complaints, except as documented and Reports as per HPI Respiratory Respiratory: Reports system reviewed and no additional complaints, except as documented, Reports as per HPI, Reports chest congestion and Reports cough Gastrointestinal Gastrointestingal: Reports system reviewed and no additional complaints, except as documented and as per HPI Genitourinary Female Genitourinary: Reports system reviewed and no additional complaints, except as documented and Reports as per HPI Physical Exam General General appearance: alert and in no apparent distress ENT ENT exam: Present mucous membranes moist Expanded ENT Exam Nose exam: Present sinus tenderness Throat exam: Present other (PND noted) Respiratory Respiratory exam: Present normal lung sounds bilaterally; Absent respiratory distress or wheezes Cardiovascular Cardiovascular exam: Present regular rate, normal rhythm and normal heart sounds Abdominal Exam Abdominal exam: Present soft and normal bowel sounds; Absent distention or tenderness Neurological Exam Neurological exam: Present alert, oriented X3 and normal gait Medical Decision Making Medical Records Screening: Per USPSTF and CDC recommendations, given the prevalence of disease in our region, it is our hospital?s policy to screen for HIV and viral Hepatitis for all patients aged 18 and over and those with ongoing risk factors. Lai Inquiry Pt receiving controlled substance: No Lai was queried for this patient: No Vital Signs: 11/22/24 09:00 Temperature 98.4 F Temperature Source Oral Pulse Rate [Left Brachial] 102 H Respiratory Rate 20 Blood Pressure [Left Arm] 132/67 Blood Pressure Mean [Left Arm] 88 Blood Pressure Source [Left Arm] Automatic Cuff Blood Pressure Position [Left Arm] Sitting 02 Sat by Pulse Oximetry 100 Oxygen Delivery Method Room Air Lab Data Lab results reviewed: Yes I reviewed the patient's lab results.
[2024-11-22 09:21] LABS: UTC Influenza A Antigen Negative (Negative); UTC Influenza B Antigen Negative (Negative)
[2024-11-22 09:25] VITALS: BP 132/67; PULSE 102; RESP 20; TEMP 36.9; O2SAT 100
== END 2024-11-22 09:28 | disposition home or self-care (01) ==
PROVIDERS: Emergency Provider Nurse Practitioner; PCP Nurse Practitioner Family
DX: J40 Bronchitis, not specified as acute or chronic (principal); J32.9 Chronic sinusitis, unspecified; R50.9 Fever, unspecified; R51.9 Headache, unspecified; R09.81 Nasal congestion; M79.10 Myalgia, unspecified site; R11.0 Nausea
CPT/HCPCS: 87804; 99212; G0381

== ENCOUNTER 2024-12-05 15:36 | Outpatient (CLI) | payer BC, SELFPAY ==
--- NOTE | 2024-12-05 15:39 | XR_ITS ---
FINAL REPORT TECHNIQUE: Chest PA & Lateral CLINICAL HISTORY: cough COMPARISON: None FINDINGS: 2 views of the chest were performed. The heart size is normal. The mediastinum is within normal limits. There is no acute cardiopulmonary process. There are no pleural effusions. There is no pneumothorax. The bony thorax appears intact. IMPRESSION: No acute cardiopulmonary process. Reviewed, Interpreted and Dictated by Saqib Alvarez MD Transcribed by Selma Ojeda Authenticated and [facility]
== END 2024-12-05 23:59 | disposition home or self-care (01) ==
LOC: RAD 15:37
PROVIDERS: PCP Nurse Practitioner Family; Visit Provider Nurse Practitioner Family
DX: R05.9 Cough, unspecified (principal); J40 Bronchitis, not specified as acute or chronic
CPT/HCPCS: 71046

== ENCOUNTER 2024-12-17 10:01 | Outpatient (CLI) | payer BC, SELFPAY ==
[2024-12-17 10:30] VITALS: PULSE 84; PULSE 87
[2024-12-17] MEDS: ALBUTEROL 0.083% 2.5 MG/3 ML NEB IH (10:30)
== END 2024-12-17 23:59 | disposition home or self-care (01) ==
LOC: RT 10:01
PROVIDERS: PCP Nurse Practitioner Family; Visit Provider Nurse Practitioner Family
DX: R05.9 Cough, unspecified (principal)
CPT/HCPCS: 94060; 94640; J7613

== ENCOUNTER 2024-12-28 08:17 | Outpatient (CLI) | payer BC, SELFPAY ==
--- NOTE | 2024-12-28 08:22 | US_ITS ---
FINAL REPORT TECHNIQUE: Real-time grayscale and color ultrasound of the thyroid was performed. CLINICAL HISTORY: thyromegaly COMPARISON: None FINDINGS: The thyroid gland measures 48 x 12 x 21 mm on the right and 45 x 13 x 19 mm on the left. The isthmus measures 2 mm. The parenchyma is unremarkable . Nodules: Right 6 mm hypoechoic nodule posterior mid lobe, TR 4. Left dominant nodule, heterogeneous, 18 x 12 mm, TR 3. Smaller nodule superior left lobe 6 mm, TR 3. IMPRESSION: Dominant 18 mm TR 3 nodule on the left. Follow-up in 1 year recommended per TI-RADS criteria. Reviewed, Interpreted and Dictated by Saqib Alvarez MD Transcribed by Celeste Connell Authenticated and [facility]
== END 2024-12-28 23:59 | disposition home or self-care (01) ==
LOC: RAD 08:18
PROVIDERS: PCP Nurse Practitioner Family; Visit Provider Nurse Practitioner Family
DX: E01.0 Iodine-deficiency related diffuse (endemic) goiter (principal)
CPT/HCPCS: 76536

== ENCOUNTER 2025-07-09 08:57 | Outpatient (CLI) | payer BC, SELFPAY ==
--- OUTSIDE RECORDS SUMMARY | 2025-07-09 08:59 | XMS_ITS | Clinical Summary ---
Author Organization [facility] Address [facility] [place] [address] Care Team Providers Care Microsoft Crm Developer Name Role Phone Unavailable Primary Care Provider Unavailabl e Source Comments This information has been disclosed to you from confidential records protectedfrom disclosure by state law. You shall make no further disclosure of thisinformation without the specific, written, and informed release of theindividual to whom it pertains, or as otherwise permitted by law. A generalauthorization for the release of medical or other information is not sufficientfor the purposes of therelease of HIV test results or diagnoses. [id number] 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 Tobacco Use Types Packs/Day Years Used Date Smoking Tobacco: Never Assessed Comments Unknown Sex and Gender Information Value Date Recorded Sex Assigned at Not on file Legal Sex Female 9:25 PM EST Gender Identity Not on file Sexual Orientation Not on file Plan of Treatment Not on file
--- OUTSIDE RECORDS SUMMARY | 2025-07-09 08:59 | XMS_ITS | Clinical Summary ---
Author Organization Healthcare Address [address] [place] [address] Care Team Providers Care Machine Iii Coremaker Name Role Phone BirchGabrielle Caryn ALONZO Primary Care Provider [phone] Allergies No known active allergies 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 Tobacco Use Types Packs/Day Years Used Date Smoking Tobacco: Never Smokeless Tobacco: Never Alcohol Use Standard Drinks/Week Comments Never 0 (1 standard drink = 0.6 oz pur e alcohol) Comments Unknown Sex and Gender Information Value Date Recorded Sex Assigned at Not on file Legal Sex Female 5:57 PM EDT Gender Identity Not on file Sexual Orientation Not on file Last Filed Vital Signs Vital Sign Reading Time Taken Comments Blood Pressure 138/88 10/20/2021 3:32 PM EST Pulse 88 10/20/2021 3:32 PM EST Temperature 36.7 C (98 F) 10/20/2021 3:32 PM EST Respiratory Rate 14 10/20/2021 3:32 PM EST Oxygen Saturation 100% 10/20/2021 3:32 PM EST Inhaled Oxygen Concentration - - Weight - - Height 177.8 cm (5' 10 ) 10/20/2021 11:10 AM EST Body Mass Index - - Plan of Treatment Health Maintenance Due Date Last Done Comments [facility]-Depression Screening 1979 [facility]-/Child/Adol SDOH Screenings 1979 [facility]- SDOH Screenings 1997 [facility]-Adult SDOH Screenings 1997 [facility]-DTaP,Tdap,and Td Vaccine s (1 - Tdap) 1998 [facility]-Hepatitis B Vaccines (1 of 3 - 19+ 3-dose series) 1998 [facility]-Pap Smear 2000 HPV Vaccines (1 - 3-dose SCD M series) 2006 [facility]-Cervical Cancer Screening 2009 [facility]-HPV/Cotest 2009 CT Colonography 2024 Colonoscopy 2024 FIT-DNA 2024 FIT 2024 FOBT 2024 Sigmoidoscopy 2024 [facility]-Colorectal Cancer Screening 2024 [id number] Vaccine ( season) 2024 10/03/2021, 01/17/2021, 12/29/2020 [facility]-Influenza Vaccine (#1) 07/29/202508/19, 09/13/2017 [facility]-Zoster Vaccines (1 of 2) 2029 [facility]-Hepatitis A Vaccines Aged Out 019, 08/28/2018 No longer eligible based on patient's age to complete this topic [facility]-HIB Vaccines Aged Out No longer e ligible based on patient's age to complete this topic [facility]-IPV Vaccines Aged Out No longer e ligible based on patient's age to complete this topic [facility]-Pneumococcal Vaccine: Pediatrics (0 to 5 Years) and At-Risk Patients (6 to 49 Years) Aged Out No longer eligible b ased on patient's age to complete this topic [facility]-Rotavirus Vaccines Aged Out No lo nger eligible based on patient's age to complete this topic Insurance [employer] Care Teams Machine Iii Coremaker Relationship Specialty Start Date End Date Gabrielle Birch APRN [address] [place] [address] PCP - General 10/20/21
--- OUTSIDE RECORDS SUMMARY | 2025-07-09 08:59 | XMS_ITS | Clinical Summary ---
Author Organization [facility] Address [address] [place] [address] Care Team Providers Care Vp [employer] Name Role Phone EyalGabrielle CHERI Primary Care Provider [phone] Allergies No known active allergies Medications sertraline (ZOLOFT) 25 MG tablet Take 1 tablet by mouth Daily. Active Rimegepant Sulfate (NURTEC) 75 MG tablet dispersible tablet Take by mouth. Active ergocalciferol (ERGOCALCIFEROL) 1.25 MG (58234 UT) capsuleIndicatio ns:Vitamin D deficiency Take 1 capsule by mouth 1 (One) Time Per Week. 12 capsule 1 04/28/2025 Active Active Problems Problem Noted Date Diagnosed Date Menorrhagia with regular cycle 04/23/2025 Intramural leiomyoma of uterus 07/12/2023 Overview (05/03/2025): 9 mm at largest measurement. Stable since 2020 Resolved Problems Problem Noted Date Diagnosed Date Resolved Date Vaginal delivery 09/15/2019 04/23/2025 Normal labor 12/17/2016 09/15/2019 Encounters Date Type Department Care Team Description 05/03/2025 11:45 AM EDT Office Visit [facility] OBGYN [address] [place] [address] Rebekah Harper APRN Intramural leiomyoma of uterus (Primary Dx); Menorrhagia with regular cycle 05/03/2025 11:00 AM EDT Ancillary Procedure [facility] OBGYN [address] [place] [address] Menorrhagia with regular cycle 05/03/2025 Travel 04/28/2025 Results Follow-Up [facility]YN [address] [place] [address] Celeste Allen APRN 04/23/2025 8:30 AM EDT Office Visit [facility] OBGYN [address] [place] [address] Celeste Allen, CHERI Women's annual routine gynecological examination (Primary Dx); Menorrhagia with regular cycle 04/23/2025 Travel from Last 3 Months Immunizations Immunization Administration Dates Next Due Rho (D) Immune Globulin 10/21/2018 Family History Medical History Relation Name Comments Arthritis Father Augustus Clarissa Hyperlipidemia Father Augustus Clarissa Hypertension Father Augustus Clarissa Breast cancer Maternal Aunt Pati Watson Great aunt Heart disease Paternal Grandfather Newt Clarissa Prostate cancer Paternal Grandfather Newt Clarissa Diabetes Paternal Grandmother Jacki Clarissa Hypertension Paternal Grandmother Jacki Clarissa Anxiety disorder Sister Colon cancer Neg Hx Ovarian cancer Neg Hx Uterine cancer Neg Hx Relation Name Status Comments Father Augustus Clarissa Maternal Aunt Pati Watson Paternal Grandfather Newt Clarissa Paternal Grandmother Jacki Clarissa Sister 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 Tobacco Use Types Packs/Day Years Used Date Smoking Tobacco: Never Smokeless Tobacco: Never Tobacco Cessation:Counseling Given: Not Answered Alcohol Use Standard Drinks/Week Comments Not Currently 0 (1 standard drink = 0.6 oz pure alcohol) 1 drink about every 3-6 months [place] Depression Scale Answer Date Recorded Retired [place] Depression Score 1 09/15/2019 Retired EPD Scale: Thought of Harming Self Unrec ognized value 09/15/2019 Comments No Sex and Gender Information Value Date Recorded Sex Assigned at Female 04/22/2025 9:30 PM EDT Legal Sex Female 11:16 AM EDT Gender Identity Not on file Sexual Orientation Straight 04/22/2025 9: 30 PM EDT Last Filed Vital Signs Vital Sign Reading Time Taken Comments Blood Pressure 108/80 05/03/2025 10:59 AM EDT Pulse 87 09/17/2019 7:00 AM EDT Temperature 36.5 C (97.7 F) 09/17/2019 7:00 AM EDT Respiratory Rate 18 12/05/2024 1:14 PM EST Oxygen Saturation 97% 03/07/2019 10:49 AM EDT Inhaled Oxygen Concentration - - Weight 93.4 kg (206 lb) 05/03/2025 10:59 AM EDT Height 177.8 cm (5' 10 ) 05/03/2025 10:59 AM EDT Body Mass Index 29.56 05/03/2025 10:59 AM EDT Plan of Treatment Health Maintenance Due Date Last Done Comments ANNUAL PHYSICAL 09/23/2017 PT PLAN OF CARE 12/28/2017 09/29/2017 TDAP/TD VACCINES (1 - Tdap) 05/26/2022 05/25/2022 COLOGUARD 2024 COLON CANCER SCREENING [address] COLONOGRAPHY 2024 FECAL OCCULT BLOOD TEST 2024 FIT Testing (1 year) 2024 COVID-19 Vaccine ( season) 2024 10/03/2021, 01/17/2021, 12/27/2020 INFLUENZA VACCINE 08/28/2025 09/07/2022, , 09/13/2017 Annual Gynecologic Pelvic and Breast Exam 04/24/2026 04/23/2025 MAMMOGRAM 12/17/2026 12/17/2024, 09/29, 10/19/2023, Additional history exists PAP SMEAR 02/09/2027 02/10/2024, 12/30, 11/19/2020, Additional history exists COLONOSCOPY 06/29/2032 06/29/2022 COLORECTAL CANCER SCREENING 06/29/2032 HEPATITIS C SCREENING Completed 02/15/2019 Pneumococcal Vaccine 0-49 Aged Out No longer eligible based on patient's age to complete this topic Procedures Procedure Name Priority Date/Time Associated Diagnosis Comments US NON-OB TRANSVAGINAL Routine 05/03/2025 10:54 AM EDT Menorrhagia with regular cycle VITAMIN D,25-HYDROXY Routine 04/23/2025 9:30 AM EDT Women's annual routine gynecological examination TSH Routine 04/23/2025 9:30 AM EDT Women's annual routine gynecological examination Menorrhagia with regular cycle T4, FREE Routine 04/23/2025 9:30 AM EDT Women's annual routine gynecological examination Menorrhagia with regular cycle LIPID PANEL Routine 04/23/2025 9:30 AM EDT Women's annual routine gynecological examination HEMOGLOBIN A1C Routine 04/23/2025 9:30 AM EDT Women's annual routine gynecological examination COMPREHENSIVE METABOLIC PANEL Routine 04/23/2025 9:30 AM EDT Women's annual routine gynecological examination CBC (NO DIFF) Routine 04/23/2025 9:30 AM EDT Women's annual routine gynecological examination Menorrhagia with regular cycle MAMMO DIAGNOSTIC DIGITAL TOMOSYNTHESIS RIGHT W CAD Routine 12/17/2024 2:08 PM EST Breast pain, right LIQUID-BASED PAP SMEAR WITH HPV GENOTYPING REGARDLESS OF INTERPRETATION, [facility] (FABI,COR,MAD) Routine 02/10/2024 11:01 AM EDT Women's annual routine gynecological examination HEPATITIS C ANTIBODY Routine 02/15/2019 from Last 3 Months or Most Recently Relevant to Health Maintenance Results * US Non-ob Transvaginal (05/03/2025 10:54 AM EDT) Anatomical Region Laterality Modality Body Ultrasound 05/03/2025 10:3 7 AM EDT Narrative 05/11/2025 11:02 AM EDT PAT NAME: FRANK LEBRON MED REC#: [id number] DA: [id number] PAT GEND: F PAT TYPE: O EXAM JOSE: [id number] REF PHYS CELESTE ALLEN Indication ======== Menorrhagia Comparison Studies 07/12/2023 Method ======= Voluson E6, Transvaginal ultrasound examination. View: Adequate view Uterus ====== Uterus: Visualized Uterus position: Anteverted Description of uterine malformations: none Myometrium: Heterogeneous Endometrium: Uniform Cervix details: Normal Uterus long 96 mm Uterus ap 58 mm Uterus tr 52 mm Uterus Vol 150.5 cm Endometrial thickness, total 8.3 mm Uterine fibroid D1 7.9 mm Uterine fibroid D2 6.4 mm Uterine fibroid D3 9.3 mm Uterine fibroid vol 0.245 cm Uterine fibroids findings: Posterior Right Ovary Rt ovary: Visualized Rt ovary D1 17.6 mm Rt ovary D2 17.8 mm Rt ovary D3 16.4 mm Rt ovary Vol 2.7 cm Left Ovary ========= Lt ovary: Normal Lt ovary details: transabdominal view only Lt ovary D1 21.4 mm Lt ovary D2 16.6 mm Lt ovary D3 22.60 mm Lt ovary Vol 4.2 cm Cul de Sac Normal. No free fluid visualized Impression The uterus is normal in size < 1 cm uterine posterior intramural leiomyoma noted. The endometrium appears sonographically normal in shape and appearance The ovaries appear sonographically normal in size, shape and morphology No free fluid seen. Recommendation Clinical judgement is needed to determine if further work-up is needed. [employer] Regional Sales Manager: Janessa Watkins RDMS Physician: Arely Cheung MD, FACOG Electronically signed by: Arely Cheung MD, FACOG at: 11:02 Procedure Note Arely Cheung MD - 05/11/2025 PAT NAME: FRANK LEBRON MED REC#: [id number] DA: [id number] PAT GEND: F PAT TYPE: O EXAM JOSE: [id number] REF PHYS CELESTE ALLEN Indication ======== Menorrhagia Comparison Studies 07/12/2023 Method ======= Voluson E6, Transvaginal ultrasound examination. View: Adequate view Uterus ====== Uterus:Visualized Uterus position:Anteverted Description of uterine malformations:none Myometrium:Heterogeneous Endometrium:Uniform Cervix details:Normal Uterus long96 mm Uterus ap58 mm Uterus tr52 mm Uterus Tmi364.5 cm Endometrial thickness, total8.3 mm Uterine fibroid D17.9 mm Uterine fibroid D26.4 mm Uterine fibroid D39.3 mm Uterine fibroid vol0.245 cm Uterine fibroids findings:Posterior Right Ovary Rt ovary:Visualized Rt ovary D117.6 mm Rt ovary D217.8 mm Rt ovary D316.4 mm Rt ovary Vol2.7 cm Left Ovary ========= Lt ovary:Normal Lt ovary details:transabdominal view only Lt ovary D121.4 mm Lt ovary D216.6 mm Lt ovary D322.60 mm Lt ovary Vol4.2 cm [place] Sac Normal. No free fluid visualized Impression The uterus is normal in size < 1 cm uterine posterior intramural leiomyoma noted. The endometrium appears sonographically normal in shape and appearance The ovaries appear sonographically normal in size, shape and morphology No free fluid seen. Recommendation Clinical judgement is needed to determine if further work-up is needed. [employer] Sales Manager: Janessa Watkins RDMS Physician: Arely Cheung MD, FACOG Electronically signed by: Arely Cheung MD, FACOG at: 11:02 us Celeste Allen MAINTENANCE EQUIPMENT OPERATOR IMG US ORDERABLES Final Result * (ABNORMAL) Vitamin D,25-Hydroxy (04/23/2025 9:30 AM EDT) Pathologist [facility] 25 Hydroxy, Vitamin D 20.7(L) 30.0 - 100.0 ng/ml [facility] Comment: Reference Range for Total Vitamin D 25(OH) Deficiency <20.0 ng/mL Insufficiency 21-29 ng/mL Sufficiency 30-100 ng/mL Toxicity >100 ng/ml Blood 04/23/2025 9:30 AM EDT 04/23/2025 Narrative [facility] (AM[facility]) - 04/24/2025 3:35 AM EDT Performed at: [address] [place] [address] [id number] Chisel Worker: Kiko Hidalgo MD, Phone: [phone] Celeste Allen APRN LAB BLOOD ORDERABLES Final Resu lt [facility] (AMBULATORY) [address] [id number], [facility] [address] [place] [address], * CBC (No Diff) (04/23/2025 9:30 AM EDT) [facility] WBC 9.24 3.40 - 10.80 10*3/mm3 [facility] RBC 4.21 3.77 - 5.28 10*6/mm3 [facility] Hemoglobin 12.1 12.0 - 15.9 g/dL [facility] Hematocrit 38.2 34.0 - 46.6 % [facility] MCV 90.7 79.0 - 97.0 fL [facility] MCH 28.7 26.6 - 33.0 pg [facility] MCHC 31.7 31.5 - 35.7 g/dL [facility] RDW 13.2 12.3 - 15.4 % [facility] Platelets 330 140 - 450 10*3/mm3 [facility] Blood 04/23/2025 9:30 AM EDT 04/23/2025 Narrative [facility] ([facility]) - 04/24/2025 3:35 AM EDT Performed at: [address] [place] [address] [address] [place], [place] [id number] Chisel Worker: Kiko Hidalgo MD, Phone: [phone] Celeste Russwilliam [place] LAB BLOOD ORDERABLES Final Resu lt Performing Organization Address [facility] Co de Phone Number [facility] (AM[facility]) [address] [place] [address], [facility] [address] [place] [address], * TSH (04/23/2025 9:30 AM EDT) TSH 1.840 0.270 - 4.200 uIU/mL [facility] Blood 04/23/2025 9:30 AM EDT 04/23/2025 Narrative [facility] ([facility]) - 04/24/2025 3:35 AM EDT Performed at: [address] [place] [address] [address] [place], [place] [id number] Chisel Worker: Kiko Hidalgo MD, Phone: [phone] Celeste Allen APRN LAB BLOOD ORDERABLES Final Resu lt Performing Organization Address City/[facility]/ZIP Co de Phone Number [facility] (AMBUL[facility]ORY) [address] [place] [address], [facility] [address] [id number], * T4, Free (04/23/2025 9:30 AM EDT) Free T4 1.02 0.92 - 1.68 ng/dL [facility] Blood 04/23/2025 9:30 AM EDT 04/23/2025 Narrative [facility] ([facility]) - 04/24/2025 3:35 AM EDT Performed at: [address] [place] [address] [address] [place], [place] [id number] Chisel Worker: Kiko Hidalgo MD, Phone: [phone] us Celeste Allen APRN LAB BLOOD ORDERABLES Final Resu lt Performing Organization Address City/[facility]/ZIP Co de Phone Number [facility] ([facility]) [address] [place] [address], [place] [phone] [facility] [address] [place] [address], [place] [phone] * Hemoglobin A1c (04/23/2025 9:30 AM EDT) Pathologist [facility] Hemoglobin A1C 5.30 4.80 - 5.60 % [facility] Comment: Hemoglobin A1C Ranges: Increased Risk for Diabetes 5.7% to 6.4% Diabetes >= 6.5% Diabetic Goal < 7.0% Blood 04/23/2025 9:30 AM EDT 04/23/[address] [facility] (AMBULATORY) - 04/24/2025 3:35 AM EDT Performed at: [address] [place] [id number] Chisel Worker: Kiko Hidalgo MD, Phone: [phone] Celeste Allen APRN LAB BLOOD ORDERABLES Final Resu lt Performing Organization Address [facility] Co de Phone Number [facility] ([facility]) [address] [place] [address], [place] [phone] [facility] [address] [place] [address], [place] [phone] * (ABNORMAL) Lipid Panel (04/23/2025 9:30 AM EDT) Total Cholesterol 206(H) 0 - 200 mg/dL [facility] Comment: Cholesterol Reference Ranges (U.S. Department of Health and Human Services ATP III Classifications) Desirable <200 mg/dL Borderline High 200-239 mg/dL High Risk >240 mg/dL Triglyceride Reference Ranges (U.S. Department of Health and Human Services ATP III Classifications) Normal <150 mg/dL Borderline High 150-199 mg/dL High 200-499 mg/dL Very High >500 mg/dL HDL Reference Ranges (U.S. Department of Health and Human Services ATP III Classifications) Low <40 mg/dl (major risk factor for CHD) High >60 mg/dl ('negative' risk factor for CHD) LDL Reference Ranges (U.S. Department of Health and Human Services ATP III Classifications) Optimal <100 mg/dL Near Optimal 100-129 mg/dL Borderline High 130-159 mg/dL High 160-189 mg/dL Very High >189 mg/dL LDL is calculated using the NIH LDL-C calculation. Triglycerides 162(H) 0 - 150 mg/dL [facility] HDL Cholesterol 43 40 - 60 mg/dL [facility] VLDL Cholesterol Chetan 29 5 - 40 mg/dL [facility] LDL Chol Calc ([facility]) 134(H) 0 - 100 mg/dL [facility] Blood 04/23/2025 9:30 AM EDT 04/23/2025 Narrative [facility] [employer] (AMBULATORY) - 04/24/2025 3:35 AM EDT Performed at: [address] [place] [id number] Chisel Worker: Kiko Hidalgo MD, Phone: [phone] Celeste Allen APRN LAB BLOOD ORDERABLES Final Resu lt [facility] [employer] [facility] (AMBULATORY) [address] [id number], [facility] [address] [place] [address], [place] [phone] * Comprehensive Metabolic Panel (04/23/2025 9:30 AM EDT) [facility] Glucose 85 65 - 99 mg/dL [facility] BUN 12.0 6.0 - 20.0 mg/dL [facility] Creatinine 0.73 0.57 - 1.00 mg/dL [facility] EGFR Result 103.5 >60.0 mL/min/1.7 3 [facility] Comment: GFR Categories in Chronic Kidney Disease (CKD) GFR Category GFR (mL/min/1.73) Interpretation G1 90 or greater Normal or high (1) G2 60-89 Mild decrease (1) G3a 45-59 Mild to moderate decrease G3b 30-44 Moderate to severe decrease G4 15-29 Severe decrease G5 14 or less Kidney failure (1)In the absence of evidence of kidney disease, neither GFR category G1 or G2 fulfill the criteria for CKD. eGFR calculation 2020 CKD-EPI creatinine equation, which does not include race as a factor BUN/Creatinine Ratio 16.4 7.0 - 25.0 [facility] Sodium 141 136 - 145 mmol/L [facility] Potassium 4.1 3.5 - 5.2 mmol/L [facility] Chloride 104 98 - 107 mmol/L [facility] Total CO2 27.0 22.0 - 29.0 mmol/L [facility] Calcium 9.4 8.6 - 10.5 mg/dL [facility] Total Protein 7.2 6.0 - 8.5 g/dL [facility] Albumin 4.4 3.5 - 5.2 g/dL [facility] Globulin 2.8 gm/dL [facility] A/G Ratio 1.6 g/dL [facility] Total Bilirubin 0.8 0.0 - 1.2 mg/dL [facility] Alkaline Phosphatase 86 39 - 117 U/L [facility] AST (SGOT) 17 1 - 32 U/L [facility] ALT (SGPT) 15 1 - 33 U/L [facility] Blood 04/23/2025 9:30 AM EDT 04/23/2025 Narrative [facility] ([facility]) - 04/24/2025 3:35 AM EDT Performed at: [address] [place] [id number] Chisel Worker: Kiko Hidalgo MD, Phone: [phone] us Celeste Allen APRN LAB BLOOD ORDERABLES Final Resu lt [facility] [employer] [facility] (AM[facility]) [address] [place] [address], [facility] [address] [place] [address], * Mammo Diagnostic Digital Tomosynthesis Right With CAD (12/17/2024 2:08 PM EST) Anatomical Region Laterality Modality Breast Right Mammography 12/17/2024 1:53 PM EST Impressions 12/17/2024 2:26 PM EST Benign right mammographic imaging and negative focused ultrasound imaging of the right 10:00 focal area of pain. RECOMMENDATION: 1. Resume annual screening mammography after 10/24/2025. 2. Clinical follow-up of right breast pain. BI-RADS CATEGORY: 2, BENIGN. CAD was utilized. The standard false-negative rate of mammography is between 10% and 25%. Complex patterns or increased breast density will markedly elevate the false-negative rate of mammography. A letter, in lay terminology, with the results of this exam was given to the patient at the time of the visit. This report was finalized on 12/17/2024 2:[address] Naya Choi MD. Narrative 12/17/2024 2:26 PM EST RIGHT DIAGNOSTIC MAMMOGRAM AND RIGHT BREAST ULTRASOUND HISTORY: 44-year-old patient presents for further evaluation of intermittent right breast pain in the 10:00 region. Her last bilateral screening mammogram was performed on 10/24/2024. She has no personal or significant family history of breast cancer. Maternal great aunt was diagnosed with breast cancer. The Tyrer-Cuzick risk assessment model revealed that the patient has a 12.1% estimated lifetime risk for developing breast cancer. She is considered intermediate risk according to this model. TECHNIQUE: Right low dose, full field digital CC and MLO views were obtained with tomosynthesis. A right CC focal compression view with tomosynthesis was also obtained. Focused ultrasound imaging was performed of the right 10:00 focal area of pain. COMPARISON: 10/24/2024, 10/19/2023, 07/05/2023, 12/10/2022, 10/15/2022, 10/08/2022, 03/08/2022, 02/27/2021, 02/13/2021, and 12/12/2019 FINDINGS: The right breast tissue is heterogeneously dense, which may obscure small masses. The fibroglandular pattern is stable. The oval mass with an associated coil shaped marking clip in the upper outer quadrant is stable. There is also stable nodularity in the central breast on CC imaging. There are no suspicious masses, worrisome calcifications, areas of architectural distortion, or other secondary signs of malignancy a mammographic imaging. Focused ultrasound imaging of the right 10:00 focal area of pain, 5 cm from the nipple, demonstrates a ridge of dense fibroglandular tissue. This focal area of pain was also reported and evaluated with ultrasound imaging on 10/08/2022. No suspicious ultrasound findings were identified. us Rocio Jo Truong MAINTENANCE EQUIPMENT OPERATOR IMG MAMMOGRAPHY ORDERABLES Fi nal Result * LIQUID-BASED PAP SMEAR WITH HPV GENOTYPING REGARDLESS OF INTERPRETATION (FABI,COR,MAD) (02/10/2024 11:01 AM EDT) Pathologist [facility] Reference Lab Report [facility] [address] [place] [address] or [phone] Vernon Calloway M.D., Paper Mill Superintendent PATIENT NAME LABORATORY NO. [id number] RUBIO. [id number] AGE SEX SSN CLIENT REF # [id number] 43 1980 F [id number] [facility] NAVEEN JESSICA REQUESTING Santiago. [place]ENDING [place] [address] REBEKAH HARPER DATE COLLECTED DATE RECEIVED DATE REPORTED 02/10/2024 02/13/2024 02/16/2024 ThinPrep Pap with Cytyc Imaging DIAGNOSIS: Negative for intraepithelial lesion or malignancy Multiple factors can influence accuracy of Pap tests; therefore, screening at regular intervals is necessary for early cancer detection. SPECIMEN ADEQUACY: SATISFACTORY FOR EVALUATION Transformation zone is present. SOURCE OF SPECIMEN: CERVICAL/ENDOCERV ICAL SLIDES: 1 CLINICAL HISTORY: Women's annual routine gynecological examination HPV HR-HPV POOL: Negative The Aptima HPV assay is an in vitro nucleic acid amplification test for the qualitative detection of E6/E7 viral messenger RNA from 14 high risk types of HPV in cervical specimens. The high risk HPV types detected include: 16, 18, 31, 33, 35, 39, 45, 51, 52, 56, 58, 59, 66, 68 TILE MOLDER: ROXANA MIGUEL (ASCP) CPT CODES: 93357, 78488 02/16/2024 1:54 PM EDT [facility] ThinPrep Vial Cervix uteri structure / Unknown Collection / Unknown 02/10/2024 11:01 AM EDT 02/10/2024 11:01 AM EDT Rebekah Harper MAINTENANCE EQUIPMENT OPERATOR PATHOLOGY/CYTOLOGY ORDERA BLES Final Result [facility]
[address] [place] [address], * Hepatitis C Antibody (02/15/2019) External Hepatitis C Ab neg Blood Historical Provider MD LAB BLOOD ORDERABLES Jessica l Result from Last 3 Months or Most Recently Relevant to Health Maintenance Insurance O Advance Directives * CPR (Attempt to Resuscitate) (Latest Code Status on File) Date Activated Date Inactivated Comments 09/15/2019 1:51 PM 09/17/2019 2:18 PM Question Answer Comments Code Status (Patient has no pulse and is not breathing): CPR (Attempt to Resuscitate) Medical Interventions (Patie nt has pulse or is breathing): Full * CPR (Attempt to Resuscitate) Date Activated Date Inactivated Comments 09/15/2019 2:22 AM 09/15/2019 1:51 PM Question Answer Comments Code Status (Patient has no pulse and is not breathing): CPR (Attempt to Resuscitate) Medical Interventions (Patie nt has pulse or is breathing): Full * Full Code Date Activated Date Inactivated Comments 12/17/2016 10:28 AM 12/19/2016 2:00 PM * Full Code Date Activated Date Inactivated Comments 12/17/2016 5:27 AM 12/17/2016 10:28 AM Care Teams Vp Global Marketing [employer] Relationship Specialty Start Date End Date Gabrielle Birch APRN PCP - General Internal Medicine 11/11/22
--- OUTSIDE RECORDS SUMMARY | 2025-07-09 08:59 | XMS_ITS | Encounter Summary ---
[facility] Address [address] [place] [address] Care Team Providers Care Patient Case Coordinator Name Role Phone Gabrielle Birch APRN Primary Care Provider [phone] Encounter Details Date Type Department Care Team (Late st Contact Info) Description 04/28/2025 Results Follow-Up [facility] OBGYN [address] [place] [address] Celeste Joseph APRN [address] [facility] [address] [place] [address] 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 Tobacco Use Types Packs/Day Years Used Date Smoking Tobacco: Never Smokeless Tobacco: Never Alcohol Use Standard Drinks/Week Comments Not Currently 0 (1 standard drink = 0.6 oz pure alcohol) 1 drink about every 3-6 months [place] Depression Scale Answer Date Recorded Retired [place] Depression Score 1 09/15/2019 Retired EPD Scale: Thought of Harming Self Unrec ognized value 09/15/2019 Comments No Sex and Gender Information Value Date Recorded Sex Assigned at Female 04/22/2025 9:30 PM EDT Legal Sex Female 11:16 AM EDT Gender Identity Not on file Sexual Orientation Straight 04/22/2025 9: 30 PM EDT documented as of this encounter Plan of Treatment Not on file documented as of this encounter Visit Diagnoses Diagnosis Vitamin D deficiency- Primary documented in this encounter Care Teams Patient Case Coordinator Relationship Specialty Start Date End Date Gabrielle Birch APRN PCP - General Internal Medicine 11/11/22 documented as of this encounter
--- OUTSIDE RECORDS SUMMARY | 2025-07-09 08:59 | XMS_ITS | Clinical Summary ---
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 (SNOMED CT) 08/25 Active 08/25 Chanda Brandon 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 Skin tissue necrosis 21718051 (SNOMED CT) 08/25 Active 08/25 Chanda Brandon Skin necrosis Cellulitis of left thigh 280624602 (SNOMED CT) 08/25 Active 08/25 Chanda Brandon Cellulitis of lower limb Abscess of left thigh L02.416 (ICD-10-CM ) 08/25 Active 08/25 Chanda Brandon Cutaneous abscess of left lower limb Medications Medication Instructions Start Date Stop Date Generic Name ND Provider DOXYCYCLINE HYCLATE 100 MG TABS one po bid DOXYCYCLINE HYCLATE 64041491747 Renato Maldonado MD AVELOX 400 MG ORAL TABLET one po daily MOXIFLOXACIN HCL 03480883172 Renato Maldonado MD AVELOX 400 MG ORAL TABLET 1 by mouth daily MOXIFLOXACIN HCL 33313473374 Renato Maldonado MD DOXYCYCLINE MONOHYDRATE 100 MG CAPS one po bid DOXYCYCLINE MONOHYDRATE 87747740494 Renato Maldonado MD ONDANSETRON 4 MG TBDP one po q 6 hrs prn ONDANSETRON 15042468112 Renato Maldonado MD DOXYCYCLINE HYCLATE 100 MG TABS Take 1 by mouth twice a day DOXYCYCLINE HYCLATE 99025402722 Renato Maldonado MD AVELOX 400 MG ORAL TABLET Take 1 by mouth daily MOXIFLOXACIN HCL 18525493721 Renato Maldonado MD AVELOX 400 MG ORAL TABLET Take 1 by mouth daily MOXIFLOXACIN HCL 22730919524 Renato Maldonado MD HYDROCODONE-SANDEEP TAMINOPHEN 5-325 MG TABS 1-2 po every 4-6 hours prrn HYDROCODONE-SANDEEP TAMINOPHEN 10599728398 Jennifer Christine RN VITAMIN 27-0.8 MG ORAL TABLET take 1 tablet daily VIT-FE FUMARATE-FA 63893477598 Cinthya Macario COLACE 100 MG CAPS take 1 capsule b.i.d. DOCUSATE SODIUM 63752952996 Cinthya Macario VITAMIN 27-0.8 MG ORAL TABLET take 1 tablet daily VIT-FE FUMARATE-FA 64157364451 Carlos Maurice IBUPROFEN 600 MG TABS take 1 tablet every 6 hours as needed IBUPROFEN 84691553524 Carlos Maurice COLACE 100 MG CAPS take 1 capsule b.i.d. DOCUSATE SODIUM 61901464445 Carlos Maurice Medications Administered No information available. Allergies, Adverse Reactions, Alerts No information available. Results Date Name Value Unit Range Flag Description Clinical Lists Update: [facility] [place] METHCONTACT cell Patient's prefered method of contact Lab Report: C-REACTIVE PROTE IN CRP 0.43 mg/dL 0.00-1.00 C reactive protein [Mass/volume] in Serum or Plasma Lab Report: CBC WITH AUTO DI FFERENTIAL IMMATUREGRAN 0.00 10*3/MM3 0.00-0.03 Immature granulocytes [#/volume] in Blood BASO# 0.01 10*3/mm3 0.00-0.20 Basophils [#/vol ume] in Blood EOS ABSLT 0.08 10*3/uL 0.00-0.30 Eosinophi ls [#/volume] in Blood MONOSCT AUTO 0.29 10*3/uL 0.00-1.00 Monocy aimee [#/volume] in Blood by Automated count LYMPHCT AUTO 2.55 10*3/mm3 0.60-4.80 Lymph ocytes [#/volume] in Blood by Automated count ABS NEUTROPH 3.92 10*3/uL 1.50-8.30 Neutro phils [#/volume] in Blood IMM GRANU % 0.0 % 0.0-0.6 Immature granulocytes/100 leukocytes in Blood [id number]-GE-[id number] 0.1 % 0.0-1.0 GE use only - for LinkLogic import when terms are not otherwise specified % EOS AUTO 1.2 % 0.0-3.0 Eosinophil s/100 leukocytes in Blood by Automated count MONOCYTE % 4.2 % 0.0-12.0 Monocytes /100 leukocytes in Blood by Automated count LYMPHS % 37.2 % 24.0-44.0 Lymphocyte s/100 leukocytes in Blood by Automated count PMN % 57.3 % 41.0-71.0 Neutrophils /100 leukocytes in Blood by Automated count PLATELETS 255 10*3/mm3 150-450 Platelets [#/volume] in Blood by Automated count RDW 12.8 % 11.3-14.5 Erythrocyte distribution width [Ratio] by Automated count MCHC 33.3 G/DL 32.0-36.0 MCHC [Mass/ volume] by Automated count MCH 30.3 pg 27.0-31.0 MCH [Entiti c mass] by Automated count MCV 90.9 fL 80.0-99.0 MCV [Entiti c volume] by Automated count HCT 38.1 % 34.5-44.0 Hematocrit [Volume Fraction] of Blood by Automated count HGB 12.7 g/dL 11.5-15.5 Hemoglobin [Mass/volume] in Blood RBC 4.19 10*6/mm3 3.89-5.14 Erythrocyt es [#/volume] in Blood by Automated count WBC 6.85 10*3/mm3 3.50-10.8 0 Leukocytes [#/volume] in Blood by Automated count Lab Report: COMPREHENSIVE ME TABOLIC PANEL ANIONGAP 3.0 mmol/L 3.0-11.0 anion gap, serum BUN/CREAT 25.7 7.0-25.0 H Urea nitrogen/Creatinine [Mass Ratio] in Serum or Plasma GFRC 94 mL/min/1. 73m2 >60 Glomerular Filtration Rate Calculation BILI TOTAL 1.3 mg/dL 0.3-1.2 H Bilirubin. total [Mass/volume] in Serum or Plasma ALK PHOS 62 U/L 25-100 Alkaline daly sphatase [Enzymatic activity/volume] in Blood SGOT (AST) 15 U/L 0-33 Aspartate aminotransferase [Enzymatic activity/volume] in Serum or Plasma SGPT (ALT) 12 U/L 7-40 Alanine aminotransferase [Enzymatic activity/volume] in Serum or Plasma ALBUMIN 4.30 g/dL 3.20-4.80 Albumin [Mass/volume] in Serum or Plasma PROTEIN, TOT 6.9 g/dL 5.7-8.2 Protein [Mass/volume] in Serum or Plasma CALCIUM 8.9 mg/dL 8.7-10.4 Calcium [Moles/volume] in Serum or Plasma CO2 30.0 mmol/L 20.0-31.0 Carbon diox mary ann, total [Moles/volume] in Venous blood CHLORIDE 106 mmol/L 99-109 Chloride [Moles/volume] in Serum or Plasma POTASSIUM 4.1 mmol/L 3.5-5.5 Potassium [Moles/volume] in Serum or Plasma SODIUM 139 mmol/L 132-146 Sodium [Moles/volume] in Serum or Plasma CREATININE 0.70 mg/dL 0.60-1.30 Creatini ne [Mass/volume] in Serum or Plasma BUN 18 mg/dL 9-23 Urea nitrogen [Mass/volume] in Serum or Plasma GLUCOSE SER 97 mg/dL 70-100 Glucose [Mass/volume] in Serum or Plasma Lab Report: SEDIMENTATION RA TE ESR 12 mm/h 0-20 Erythrocyte sedimentation rate by Westergren method Office Visit: 3 MEDS REVIEW Done Documenta tion of current medications (procedure) ORALTOBACUSE Never Tobacco smoking status SMOK STATUS Never smoker Tobacco smoking status Plan of Care Type Date Detail Pending order CMP Pending order CBC with Differe ntial Pending order Sedimentation Ra te (ESR) Pending order CMP Pending order CBC with Differe ntial Pending order C- reactive prot ein Pending order Sedimentation Ra te (ESR) Pending order Continue oral an tibiotics Pending order Continue oral an tibiotics Pending order CMP Pending order C- reactive prot ein Pending order Sedimentation Ra te (ESR) Pending order CBC with Differe ntial Pending order AFB Culture & Se nsitivity Pending order Fungal Culture & Sensitivity Pending order Mycobacterial cu lture Pending order Fungal Culture & Sensitivity Patient education Medications Procedures Code Procedure Name Date Entry Date CPT-80195 [facility] [id number] CBC with Differential 2017 CPT-07229 Sedimentation Rate (ESR) 201 06/28/09 CPT-00879 [facility] [id number] CBC with Differential 2016 CPT-40523 C- reactive protein CPT-95999 Sedimentation Rate (ESR) 201 06/07/28 CPT-Cooral Continue oral antibiotics 20 14/10/09 CPT-Cooral Continue oral antibiotics 20 13/09/26 CPT-48863 CMP CPT-31533 C- reactive protein CPT-84310 Sedimentation Rate (ESR) 201 06/06/26 C1968s,[id number] CBC with Differential 2016 CPT-AFBC AFB Culture & Sensitivity 13/09/24 CPT-cf Fungal Culture & Sensitivity CPT: Myocx Mycobacterial culture CPT-cf Fungal Culture & Sensitivity Vital Signs Date Name Value Unit Description BMI (Body Mass Index) 24.82 kg/m2 Bod y Mass Index (Ratio) Body Temperature 98.7 [degF] temperat ure E&M BP Diastolic 68 mm[Hg] blood pressu re, diastolic BP Systolic 108 mm[Hg] blood pressur e, systolic Heart Rate 86 /min pulse rate Height 70 [in_us] height E&M Respiratory Rate 12 /min respirat ory rate E&M Weight Measured 173 [lb_av] weight E& M Weight Measured 173 [lb_av] weight E& M Immunizations Vaccine Administration Date Standard Description CVX Co de Dose Unspecified Formulation Unspecified Formulation 88 Unknown Advance Directives Directive Description Start Date PATIENT DOES NOT HAVE ADVANCED DIRECTIVE S.
--- NOTE | 2025-07-09 09:30 | CT_ITS ---
FINAL REPORT TECHNIQUE: Thin section axial CT images with coronal and sagittal reformats were performed through the neck. This study was performed with techniques to keep radiation doses as low as reasonably achievable (ALARA). Individualized dose reduction techniques using automated exposure control or adjustment of mA and/or kV according to the patient''s size were employed. CLINICAL HISTORY: Supraclavicular mass right between clavicles FINDINGS: Exam is limited without intravenous contrast. Nasopharynx, oropharynx, epiglottis and larynx are normal. There is likely a small left thyroid nodule. Salivary glands are unremarkable. There are mildly prominent, left greater than right submandibular lymph nodes. Otherwise, there is no lymphadenopathy. There is no supraclavicular mass identified. Paranasal sinuses are clear. No air-fluid levels are identified. Mastoid air cells are clear. Limited imaging of the lung apices demonstrates no acute abnormality. No acute osseous changes are seen. IMPRESSION: Limited exam without contrast No supraclavicular mass identified. Mildly prominent, left greater than right submandibular lymph nodes. Reviewed, Interpreted and Dictated by Hanane Strong MD Transcribed by Jo-Ann Truong Authenticated and [facility]
--- NOTE | 2025-07-09 09:30 | CT_ITS ---
FINAL REPORT TECHNIQUE: Thin section axial images were obtained from the lung apices through the upper abdomen without contrast. This study was performed with techniques to keep radiation doses as low as reasonably achievable (ALARA). Individualized dose reduction techniques using automated exposure control or adjustment of mA and/or kV according to the patient's size were employed. CLINICAL HISTORY: Supraclavicular mass right between clavicles FINDINGS: There is no mediastinal, hilar, or axillary lymphadenopathy. No pleural or pericardial effusion. 3 mm subpleural right lower lobe nodule seen on series 2 image 33. The lungs are otherwise clear. Limited, unenhanced evaluation of the upper abdomen is without acute abnormality. There is no acute osseous abnormality. IMPRESSION: No acute intrathoracic abnormality. Consider follow-up chest CT following risk stratification per Fleischner criteria. Reviewed, Interpreted and Dictated by Hanane Strong MD Transcribed by Jo-Ann Truong Authenticated and [facility]
== END 2025-07-09 23:59 | disposition home or self-care (01) ==
LOC: RAD 08:57
PROVIDERS: PCP Nurse Practitioner Family; Visit Provider Nurse Practitioner Family
DX: R59.0 Localized enlarged lymph nodes (principal)
CPT/HCPCS: 70490; 71250

== ENCOUNTER 2025-08-07 20:28 | Emergency (ER) | payer BC, SELFPAY ==
[2025-08-07 20:35] VITALS: BP 152/82; PULSE 95; RESP 18; TEMP 36.6; O2SAT 100; BMI 29.1
--- NOTE | 2025-08-07 20:50 | ED_ITS ---
<Statement entered by Sarika Burris DO - 08/07/25 22:12> I was consulted by the BRENDON, and we discussed the complexity of problems being addressed. I approve the treatment and management plan for this patient's care in the emergency department, thus performing a substantial portion of the medical decision making. Sarika Burris DO Discharge Plan Disposition Patient Disposition: Home, Self-Care Condition: Good Prescriptions Prescriptions: New cephalexin 500 mg tablet 500 mg PO BID 10 Days Qty: 20 0RF No Action Nurtec ODT 75 mg tablet,disintegrating 75 mg PO ONCE PRN (Reason: migraine headache) Qty: 8 5RF Rx Instructions: Place 1 pill under tongue at onset of headache. Max dose 75 mg in 24 hours. further refills by pcp sertraline [Zoloft] 25 mg tablet 25 mg PO DAILY 90 Days Qty: 90 1RF Referrals Follow up/Referrals: Gabrielle Birch APRN [Primary Care Provider, Medical] - See instructions Activity Restrictions/Add. Instructions Additional Instructions/Restrictions: Follow-up with PCP Antibiotics as ordered Ice 20 minutes/h for comfort If symptoms worsen or do not improve return Clinical Impressions Clinical Impression: Cellulitis Qualifiers: Site of cellulitis: extremity Site of cellulitis of extremity: lower extremity Laterality: right Qualified Code(s): L03.115 - Cellulitis of right lower limb Instructions Patient Instructions: DI for Cellulitis -- Adult Print Language Print Language: Tajik Discharge ED Provider: Sarika Burris General Adult HPI General Chief complaint: Extremity Problem,Nontraumatic Stated complaint: R leg pain poss blood clot Time Seen by Provider: 08/07/25 20:48 Mode of Arrival: Ambulatory Source of Information: Patient Description of Symptoms (Recalled from ER Triage Doc. by RN): patient presents to the ED for right leg pain. the patient stated she noticed the pain after weaking muck boots for the first time in a while, but since then the pain has increased andits warm to the touch and hurting her. History of Present Illness HPI narrative: 45-year-old female presents to the ER for right leg pain. Patient states she put on her muck boots that she had not worn for a while on Tuesday then noticed she was having pain in her leg, she states she has been using muscle rub without relief and noticed this afternoon that her leg was swollen warm and red. Related Data Previous Rx's ?Medication ?Instructions ?Recorded rimegepant 75 mg disintegrating 75 mg PO ONCE PRN migr keshav 11/26/24 tablet (Nurtec ODT) headache #8 tabs sertraline 25 mg tablet (Zoloft) 25 mg PO DAILY MOOD 9 0 days #90 05/08/25 tabs cephalexin 500 mg tablet 500 mg PO BID 10 days #20 ta bs 08/07/25 Allergies Allergy/AdvReac Type Severity Reaction Status Date / Time No Known Allergies Allergy Verified 06/28/25 13:43 [facility] Disclaimer: The information contained in this section may have been updated after the patient was seen, as this information can be updated by other users. Medical History , PERCHER) Episodic migraine Anxiety 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 , PERCHER) H/O sinus surgery History of tonsillectomy Hx of cholecystectomy Family History , PERCHER) Diabetes Coronary artery disease Headache Heart attack Hypertension 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 , PERCHER) Smoking Status: Never smoker alcohol intake: current alcohol intake frequency: holidays/special occasions only substance use type: denies use current occupational status: employed Travel in the last 8 weeks?: None household members: spouse and children housing: house Have you lived/traveled outside US in past 30 days?: No Contact w/someone who lives/traveled outside US past 30 days?: No Exposure to someone with infectious disease in past 14 days?: No Do you have a fever (greater than 100.4 F or 38 C)?: No Have you tested positive for COVID-19?: No Exposed to someone with COVID-19 in past 14 days?: No Do you have a sore throat?: No Do you have a cough?: No Do you have any weakness?: No Do you have any diarrhea?: No Are you experiencing any unusual bleeding?: No Do you have any muscle aches/pain?: No Do you have any abdominal pain?: No Are you experiencing loss of taste or smell?: No Other Medical History Have you received the Flu Vaccine for this season: Yes Have you received the Pneumonia Vaccine: No ROS Obtained: Yes All systems reviewed & no additional complaints except as documented Constitutional Constitutional: Reports system reviewed and no additional complaints, except as documented and Reports as per HPI Musculoskeletal Musculoskeletal: Reports system reviewed and no additional complaints, except as documented, Reports as per HPI and Reports other (Redness, warmth, and swelling to right lower extremity) Integumentary/Breasts Skin/Breast: Reports system reviewed and no additional complaints, except as documented and Reports as per HPI Physical Exam General General appearance: alert and in no apparent distress Respiratory Respiratory exam: Present normal lung sounds bilaterally Cardiovascular Cardiovascular exam: Present regular rate and normal rhythm Extremities Exam Extremities exam: Present tenderness and normal capillary refill; Absent edema Expanded Lower Extremity Exam Right: Leg image: 2 1. Redness, warmth, slight swelling Neurovascular/Tendon exam: Present normal capillary refill Comment: Negative Homans' sign Neurological Exam Neurological exam: Present alert and oriented X3 Skin Skin exam: Present warm Medical Decision Making Medical Records Medical records reviewed: Yes I reviewed the patient's medical records. Screening: Per USPSTF and CDC recommendations, given the prevalence of disease in our region, it is our hospital?s policy to screen for HIV and viral Hepatitis for all patients aged 18 and over and those with ongoing risk factors. Lai Inquiry Pt receiving controlled substance: No Lai was queried for this patient: No Vital Signs: 08/07/25 20:35 08/07/25 21:04 Temperature 97.8 F Temperature Source Temporal Artery Scan Pulse Rate 87 Pulse Rate [Right Radial] 95 H Respiratory Rate 18 16 Blood Pressure 127/81 Blood Pressure [Right Arm] 152/82 H Blood Pressure Mean 93 Blood Pressure Mean [Right Arm] 105 Blood Pressure Source [Right Arm] Automatic Cuff Blood Pressure Position [Right Arm] Sitting 02 Sat by Pulse Oximetry 100 98 Oxygen Delivery Method Room Air Lab Data Lab results reviewed: Yes I reviewed the patient's lab results. Lab Results 08/07/25 21:00: WBC 10.4, RBC 4.01 L, Hgb 12.0 L, Hct 35.6 L, MCV 88.8, MCH 29.9, MCHC 33.7, RDW 12.7, Plt Count 323, MPV 9.0, Neut % (Auto) 61.7, Lymph % (Auto) 30.1, [place] % (Auto) 5.3, Eos % (Auto) 2.4, Baso % (Auto) 0.3, Neut # (Auto) 6.4, Lymph # (Auto) 3.1, [place] # (Auto) 0.6, Eos # (Auto) 0.3, Baso # (Auto) 0.0, D-Dimer 0.91 H, Sodium 139, Potassium 3.6, Chloride 103, Carbon Dioxide 29, Anion Gap 10.6, BUN 14, Creatinine 0.60, Estimated Creat Clear 170, Estimated GFR 108, Est GFR ( Amer) 130, Glucose 126 H, Calcium 9.4, Total Bilirubin 0.6, AST 27, ALT 20, Alkaline Phosphatase 68, Total Protein 8.1, Albumin 4.7, Globulin 3.4 H, Albumin/Globulin Ratio 1.4 08/07/25 21:00 08/07/25 21:00 Orders (Tests/Meds): ED MEDICATIONS Discontinued Medications Generic Name Dose Route Start Last Admin Trade Name Eddieq PRN Reason Stop Dose Admin Acetaminophen 650 mg 08/07/25 21:27 08/07/25 21:31 Acetaminophen 325mg Tab PO 08/07/25 21:28 650 mg ONCE ONE Administration Ibuprofen 400 mg 08/07/25 21:26 08/07/25 21:31 Ibuprofen 400 Mg Tablet PO 08/07/25 21:27 400 mg ONCE ONE Administration ORDERS Category Date Time Status POCUS Point of Care (ER Only) Stat Exams 08/07/25 20:49 Ordered CBC w/Auto Diff [Complete Blood Count Auto Diff] Stat Lab 08/07/25 21:00 Completed CMP [Comprehensive Metabolic Panel] Stat Lab 08/07/25 21:00 Completed D-Dimer Stat Lab 08/07/25 21:00 Completed Medical Decision Narrative: In summary patient is a 45-year-old female who presents to the emergency department for evaluation of right leg pain, redness, swelling. Patient is hemodynamically stable upon arrival, afebrile. Exam shows right lower leg redness warmth and slight swelling. Differential diagnosis includes cellulitis, DVT, skin irritation. Initial workup will be conducted with labs. Initial inventions include labs, Tylenol and Motrin. Initial workup reviewed by nm labs all within normal limits. Upon repeat evaluation patient resting comfortably in stretcher. Given this patient appropriate for discharge at this time will discharge home on Keflex to treat for cellulitis follow-up with primary care Critical Care Critical Care Time Critical Care Time: No
--- OUTSIDE RECORDS SUMMARY | 2025-08-07 20:52 | XMS_ITS | Clinical Summary ---
Author Organization [facility] Address [facility] [place] [address] Care Team Providers Care [place] Protection Maintainer Name Role Phone Unavailable Primary Care Provider [...] therelease of HIV test results or diagnoses. [id number] 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 Tobacco Use Types Packs/Day Years Used Date Smoking Tobacco: Never Assessed Comments Unknown Sex and Gender Information Value Date Recorded Sex Assigned at Not on file Legal Sex Female 9:25 PM EST Gender Identity Not on file Sexual Orientation Not on file Plan of Treatment Not on file
--- OUTSIDE RECORDS SUMMARY | 2025-08-07 20:52 | XMS_ITS | Clinical Summary ---
Author Organization [facility] Address [address] [place] [address] Care Team Providers Care Estimator Paperboard Boxes Name Role Phone Gabrielle Birch APRN Primary Care Provider [phone] Allergies No known active allergies Medications sertraline (ZOLOFT) 25 MG tablet Take 1 tablet by mouth Daily. Active Rimegepant Sulfate (NURTEC) 75 MG tablet dispersible tablet Take by mouth. Active ergocalciferol (ERGOCALCIFEROL) 1.25 MG (56522 UT) capsuleIndicatio ns:Vitamin D deficiency Take 1 [...] delivery 09/15/2019 04/23/2025 Normal labor 12/17/2016 09/15/2019 Immunizations Immunization Administration Dates Next Due Rho (D) Immune Globulin 10/21/2018 Family History Medical History Relation Name Comments Arthritis Father Augustus Clarissa Hyperlipidemia Father Augustus Clarissa Hypertension Father Augustus Clarissa Breast cancer Maternal Aunt Pati Walter Great aunt Heart disease Paternal Grandfather Newt Clarissa Prostate cancer Paternal Grandfather [place] Clarissa Diabetes Paternal Grandmother Jacki Clarissa Hypertension Paternal Grandmother Jacki Romo Anxiety disorder Sister Colon cancer Neg Hx Ovarian cancer Neg Hx Uterine cancer Neg Hx Relation Name Status Comments Father Augustus Romo Maternal Aunt Pati Watson Paternal Grandfather Thiago Romo Paternal Grandmother Jacki Romo Sister 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 Tobacco Use Types Packs/Day Years Used Date Smoking Tobacco: Never Smokeless Tobacco: Never Tobacco Cessation:Counseling Given: Not Answered Alcohol Use Standard Drinks/Week Comments Not Currently 0 (1 standard drink = 0.6 oz pure alcohol) 1 drink about every 3-6 months [place] Depression Scale Answer Date Recorded Retired [place] Depression Score 1 09/15/2019 Retired EPD Scale: [...] (1 year) 2024 COVID-19 Vaccine ( season) 2025 10/03/2021, 01/17/2021, 12/27/2020 INFLUENZA VACCINE 08/28/2025 09/07/2022, [...] Procedure Name Priority Date/Time Associated Diagnosis Comments MAMMO DIAGNOSTIC DIGITAL TOMOSYNTHESIS RIGHT W CAD Routine 12/17/2024 2:08 PM EST Breast pain, right LIQUID-BASED PAP SMEAR WITH HPV GENOTYPING REGARDLESS OF INTERPRETATION, [facility] (F[facility]I,[facility]) Routine 02/10/2024 11:01 AM EDT Women's annual routine gynecological examination HEPATITIS C ANTIBODY Routine 02/15/2019 from Last 3 Months or Most Recently Relevant to Health Maintenance Results * Mammo Diagnostic Digital Tomosynthesis Right With [...] suspicious ultrasound findings were identified. us Rocio Guerin PLAN NURSE IMG MAMMOGRAPHY ORDERABLES Fi nal Result * LIQUID-BASED PAP SMEAR WITH HPV GENOTYPING REGARDLESS OF INTERPRETATION (FABI,COR,MAD) (02/10/2024 11:01 AM EDT) Reference Lab Report [facility] [address] [place] [address] or [phone] Vernon Calloway M.D., Hris Developer PATIENT NAME [facility] NO[facility] FRANK BRANDT. [id number] AGE SEX SSN CLIENT REF # [facility] 43 1980 F [id number] 206 [address]AVE[address] JESSICA REQUESTING MLukasz. [place]ENDING [place] [address] REBEKAH HARPER DATE COLLECTED DATE RECEIVED DATE [...] 51, 52, 56, 58, 59, 66, 67 WILDLIFE MANAGER: ROXANA MIGUEL (ASCP) CPT CODES: 49465, 89129 02/16/2024 1:54 PM EDT [facility] ThinPrep Vial Cervix uteri structure / Unknown Collection / Unknown 02/10/2024 11:01 AM EDT 02/10/2024 11:01 AM EDT Rebekah Harper PLAN NURSE PATHOLOGY/CYTOLOGY ORDERA BLES Final Result [facility]
[address] [place] [address] [place] [address], * Hepatitis C Antibody (02/15/2019) External Hepatitis C Ab neg Blood Historical Provider LAB BLOOD ORDERABLES Jessica l Result from Last 3 Months or Most Recently Relevant to Health Maintenance Insurance PPO Advance Directives * CPR (Attempt to Resuscitate) [...] 5:27 AM 12/17/2016 10:28 AM Care Teams Estimator Paperboard Boxes Relationship Specialty Start Date End Date Gabrielle Birch APRN PCP - General Internal Medicine 11/11/22
--- OUTSIDE RECORDS SUMMARY | 2025-08-07 20:52 | XMS_ITS | Clinical Summary ---
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) 08/25 Active 08/25 Chanda Brandon 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 Skin tissue necrosis 18926642 (SNOMED CT) 08/25 Active 08/25 Chanda Brandon Skin necrosis Cellulitis of left thigh 753538226 (SNOMED CT) 08/25 Active 08/25 Chanda Brandon Cellulitis of lower limb Abscess of left thigh L02.416 (ICD-10-CM ) 08/25 Active 08/25 Chanda Brandon Cutaneous abscess of left lower limb Medications Medication Instructions Start Date Stop Date Generic Name ND Provider DOXYCYCLINE HYCLATE 100 MG TABS one po bid DOXYCYCLINE HYCLATE 71897468312 Renato Maldonado MD AVELOX 400 MG ORAL TABLET one po daily MOXIFLOXACIN HCL 41826447529 Renato Maldonado MD AVELOX 400 MG ORAL TABLET 1 by mouth daily MOXIFLOXACIN HCL 06058744054 Renato Maldonado MD DOXYCYCLINE MONOHYDRATE 100 MG CAPS one po bid DOXYCYCLINE MONOHYDRATE 79954801056 Renato Maldonado MD ONDANSETRON 4 MG TBDP one po q 6 hrs prn ONDANSETRON 46763764738 Renato Maldonado MD DOXYCYCLINE HYCLATE 100 MG TABS Take 1 by mouth twice a day DOXYCYCLINE HYCLATE 45221427279 Renato Maldonado MD AVELOX 400 MG ORAL TABLET Take 1 by mouth daily MOXIFLOXACIN HCL 03781453376 Renato Maldonado MD AVELOX 400 MG ORAL TABLET Take 1 by mouth daily MOXIFLOXACIN HCL 40424436361 Renato Maldonado MD HYDROCODONE-SANDEEP TAMINOPHEN 5-325 MG TABS 1-2 po every 4-6 hours prrn HYDROCODONE-SANDEEP TAMINOPHEN 29508777347 Jennifer Christine RN VITAMIN 27-0.8 MG ORAL TABLET take 1 tablet daily VIT-FE FUMARATE-FA 28582465002 Cinthya Macario COLACE 100 MG CAPS take 1 capsule b.i.d. DOCUSATE SODIUM 42482340022 Cinthya Macario VITAMIN 27-0.8 MG ORAL TABLET take 1 tablet daily VIT-FE FUMARATE-FA 08515839577 Carlos Maurice IBUPROFEN 600 MG TABS take 1 tablet every 6 hours as needed IBUPROFEN 83550382955 Carlos Maurice COLACE 100 MG CAPS take 1 capsule b.i.d. DOCUSATE SODIUM 60218116239 Carlos Maurice Medications Administered No information available. Allergies, Adverse Reactions, Alerts No information available. Results Date Name Value Unit Range Flag Description Clinical Lists Update: [facility] METHCONTACT cell Patient's prefered method of contact [...] Procedures Code Procedure Name Date Entry Date CPT-59641 [facility] [id number],[id number] CBC with Differential 2017 CPT-47049 Sedimentation Rate (ESR) 201 06/28/09 CPT-29107 [facility] [id number] CBC with Differential 2016 CPT-33554 C- reactive protein CPT-77080 Sedimentation Rate (ESR) 201 06/07/28 CPT-Cooral Continue oral antibiotics 20 14/10/09 CPT-Cooral Continue oral antibiotics 20 13/09/26 CPT-60715 CMP CPT-62435 C- reactive protein CPT-91902 Sedimentation Rate (ESR) 201 06/06/26 [id number] CBC with Differential 2016 CPT-AFBC AFB Culture [...]
--- OUTSIDE RECORDS SUMMARY | 2025-08-07 20:53 | XMS_ITS | Clinical Summary ---
Author Organization Healthcare Address [address] [place] [address] Care Team Providers Care Refuse Laborer Name Role Phone BirchGabrielle Caryn ALONZO Primary Care Provider [phone] Allergies No known active allergies 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 [...] Date Last Done Comments [facility]-Depression Screening 1979 [facility]-Infant/Child/Adol SDOH Screenings 1979 [facility]- SDOH Screenings 1997 [facility]-Adult SDOH Screenings 1997 [facility]-DTaP,Tdap,and Td Vaccine s (1 - Tdap) 1998 [facility]-Hepatitis B Vaccines (1 of 3 - 19+ 3-dose series) 1998 [facility]-Pap Smear 2000 [facility]-Cervical Cancer Screening 2009 [facility]-HPV/Cotest 2009 CT Colonography 2024 Colonoscopy 2024 FIT-DNA 2024 FIT 2024 FOBT 2024 Sigmoidoscopy 2024 [facility]-Colorectal Cancer Screening 2024 [facility]-FHANX-07 Vaccine ( season) 2025 10/03/2021, 01/17/2021, 12/29/2020 [facility]-Influenza Vaccine (#1) 07/29/202508/19, 09/13/2017 [facility]-Zoster Vaccines (1 of 2) 2029 [facility]-Hepatitis A Vaccines Aged Out 019, 08/28/2018 No longer eligible based on patient's age to complete this topic HPV Vaccines Aged Out No longer eligi ble based on patient's age to complete this [...] complete this topic Insurance PETER Care Teams Refuse Laborer Relationship Specialty Start Date End Date Gabrielle iBrch APRN [address] [place] [address] PCP - General 10/20/21
--- OUTSIDE RECORDS SUMMARY | 2025-08-07 20:53 | XMS_ITS | Encounter Summary ---
Author Organization [facility] Address [address] [place] [address] Care Team Providers Care Drum Worker Name Role Phone Gabrielle Birch APRN Primary Care Provider Encounter Details Date Type Department Care Team (Late st Contact Info) Description 04/28/2025 Results Follow-Up [facility] [address] [place] [address] Celeste Joseph APRN [address] [facility] [address] [place] [address] 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 Tobacco Use Types Packs/Day Years Used Date Smoking Tobacco: Never Smokeless Tobacco: Never Alcohol Use Standard Drinks/Week Comments Not Currently 0 (1 standard drink = 0.6 oz pure alcohol) 1 drink about every 3-6 months [place] Depression Scale Answer Date Recorded Retired [place] Depression Score 1 09/15/2019 Retired EPD Scale: [...] Primary documented in this encounter Care Teams Drum Worker Relationship Specialty Start Date End Date Gabrielle Birch APRN PCP - General Internal Medicine 11/11/22 documented as of this encounter
[2025-08-07 21:04] VITALS: BP 127/81; PULSE 87; RESP 16; O2SAT 98
[2025-08-07 21:12] LABS: Hematocrit 35.6 % (37.0-47.0); Hemoglobin 12.0 g/dL (12.2-16.2); Immature Granulocytes % 0.2 %; Mean Corpuscular HGB Conc 33.7 g/dL (31.8-35.4); Mean Corpuscular Hemoglobin 29.9 pg (27.0-31.2); Mean Corpuscular Volume 88.8 fl (81-99); Nucleated Red Blood Cells % 0 %; Platelet Count 323 K/mm3 (142-424); Red Blood Count 4.01 M/mm3 (4.20-5.40); Red Cell Distribution Width-SD 41.3 fL; White Blood Count 10.4 K/mm3 (4.8-10.8)
[2025-08-07 21:25] LABS: Alanine Aminotransferase 20 U/L (12-78); Albumin Level 4.7 g/dl (3.5-5.0); Albumin/Globulin Ratio 1.4 (1.1-1.8); Alkaline Phosphatase 68 U/L (38-126); Anion Gap 10.6 mEq/L (5-15); Aspartate Amino Transferase 27 U/L (14-36); Bilirubin,Total 0.6 mg/dl (0.2-1.3); Blood Urea Nitrogen 14 mg/dl (7-17); Calcium 9.4 mg/dl (8.4-10.2); Carbon Dioxide 29 mmol/L (22.0-30.0); Chloride 103 mmol/L (98-107); Creatinine Clearance Estimated 170 mL/min (50-200); Creatinine,Serum 0.60 mg/dl (0.52-1.04); Estimated Glomerular Filt Rate 108 ml/min (>60); GFR (African American) 130 ML/MIN (>60); Globulin 3.4 g/dL (1.3-3.2); Glucose 126 mg/dl (74-100); Potassium 3.6 mmoL/L (3.5-5.1); Sodium 139 mmol/L (136-145); Total Protein,Serum 8.1 g/dl (6.3-8.2)
[2025-08-07 21:30] LABS: D-Dimer 0.91 ug/mL (0.0-0.5)
[2025-08-07] MEDS: IBUPROFEN 400 MG TABLET PO (21:31)
[2025-08-07] MEDS: ACETAMINOPHEN 325MG TAB 650 MG PO (21:31)
[2025-08-07 21:53] VITALS: BP 133/86; PULSE 88; RESP 16; TEMP 36.6; O2SAT 98
== END 2025-08-07 22:02 | disposition home or self-care (01) ==
PROVIDERS: Nurse Practitioner Family; Emergency Provider Student in an Organized Health Care Education/Training Program; PCP Nurse Practitioner Family
DX: L03.115 Cellulitis of right lower limb (principal); M79.604 Pain in right leg
CPT/HCPCS: 80053; 85025; 85378; 99283

== ENCOUNTER 2025-10-19 08:32 | Outpatient (CLI) | payer BC, SELFPAY ==
--- OUTSIDE RECORDS SUMMARY | 2025-10-19 08:35 | XMS_ITS | Clinical Summary ---
Author Organization [facility] Address [facility] [place] [address] Care Team Providers Care Egg Worker Name Role Phone Unavailable Primary Care Provider [...] therelease of HIV test results or diagnoses. [id number] 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 Tobacco Use Types Packs/Day Years Used Date Smoking Tobacco: Never Assessed Comments Unknown Sex and Gender Information Value Date Recorded Sex Assigned at Not on file Legal Sex Female 9:25 PM EST Gender Identity Not on file Sexual Orientation Not on file Plan of Treatment Not on file
--- OUTSIDE RECORDS SUMMARY | 2025-10-19 08:35 | XMS_ITS | Clinical Summary ---
Author Organization [facility] Address [address] [place] [address] Care Team Providers Care See Supervisor Name Role Phone Gabrielle Birhc APRN Primary Care Provider [phone] Allergies No known active allergies Medications sertraline (ZOLOFT) 25 MG tablet Take 1 tablet by mouth Daily. Active Rimegepant Sulfate (NURTEC) 75 MG tablet dispersible tablet Take by mouth. Active ergocalciferol (ERGOCALCIFEROL) 1.25 MG (15524 UT) capsuleIndicatio ns:Vitamin D deficiency Take 1 [...] alcohol) 1 drink about every 3-6 months Banner Depression Scale Answer Date Recorded Banner Depression Scale Total 1 09/15/2019 The thought of harming myself has occurred to me . Unrecognized value 09/15/2019 Comments No Sex and Gender [...] TEST 2024 FIT Testing (1 year) 2024 INFLUENZA VACCINE 06/28/2025 09/07/2022, , 09/13/2017 Annual Gynecologic Pelvic and [...] ultrasound findings were identified. us Rocio Guerin APRN IMG MAMMOGRAPHY ORDERABLES Fi nal Result * LIQUID-BASED PAP SMEAR WITH HPV GENOTYPING REGARDLESS OF INTERPRETATION (FABI,COR,MAD) (02/10/2024 11:01 AM EDT) Pathologist [facility] Reference Lab Report [facility] [address] [place] [address] or [phone] Vernon Calloway M.D., Paper Coating Supervisor PATIENT NAME LAB[facility]ATORY NO. FRANK BRANDT. [id number] AGE SEX SSN CLIENT REF # [facility] 43 1980 F [id number] Shari NAVEEN JESSICA REQUESTING Ray [place] [address] REBEKAH HARPER DATE COLLECTED DATE RECEIVED DATE [...] 51, 52, 56, 58, 59, 66, 67 ELECTRONICS ENGINEERING TECHNICIAN: ROXANA MIGUEL (ASCP) CPT CODES: 35850, 08382 02/16/2024 1:54 PM EDT [facility] ThinPrep Vial Cervix uteri structure / Unknown Collection / Unknown 02/10/2024 11:01 AM EDT 02/10/2024 11:01 AM EDT Rebekah Harper MUTUAL FUND MANAGER PATHOLOGY/CYTOLOGY ORDERA BLES Final Result [facility]
[address] [place] [address], * Hepatitis C Antibody (02/15/2019) External Hepatitis C Ab neg Blood us Historical Provider LAB BLOOD ORDERABLES Jessica bess Result from Last 3 Months or Most [...] 5:27 AM 12/17/2016 10:28 AM Care Teams See Supervisor Relationship Specialty Start Date End Date Gabrielle Birch APRN PCP - General Internal Medicine 11/11/22
--- OUTSIDE RECORDS SUMMARY | 2025-10-19 08:35 | XMS_ITS | Clinical Summary ---
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 Skin tissue necrosis 20791569 (SNOMED CT) 08/25 Active 08/25 Chanda Rbandon Skin necrosis Cellulitis of left thigh 859536303 (SNOMED CT) 08/25 Active 08/25 Chanda Brandon Cellulitis of lower limb Abscess of left thigh L02.416 (ICD-10-CM ) 08/25 Active 08/25 Chanda Brandon Cutaneous abscess of left lower limb Medications Medication Instructions Start Date Stop Date Generic Name ND Provider DOXYCYCLINE HYCLATE 100 MG TABS one po bid DOXYCYCLINE HYCLATE 69273811222 Renato Maldonado MD AVELOX 400 MG ORAL TABLET one po daily MOXIFLOXACIN HCL 43207621587 Renato Maldonado MD AVELOX 400 MG ORAL TABLET 1 by mouth daily MOXIFLOXACIN HCL 33256485999 Renato Maldonado MD DOXYCYCLINE MONOHYDRATE 100 MG CAPS one po bid DOXYCYCLINE MONOHYDRATE 51740441338 Renato Maldonado MD ONDANSETRON 4 MG TBDP one po q 6 hrs prn ONDANSETRON 78841011320 Renato Maldonado MD DOXYCYCLINE HYCLATE 100 MG TABS Take 1 by mouth twice a day DOXYCYCLINE HYCLATE 87153394212 Renato Maldonado MD AVELOX 400 MG ORAL TABLET Take 1 by mouth daily MOXIFLOXACIN HCL 55765825404 Renato Maldonado MD AVELOX 400 MG ORAL TABLET Take 1 by mouth daily MOXIFLOXACIN HCL 99548223032 Renato Maldonado MD HYDROCODONE-SANDEEP TAMINOPHEN 5-325 MG TABS 1-2 po every 4-6 hours prrn HYDROCODONE-ASNDEEP TAMINOPHEN 04730873361 Jennifer Christine RN VITAMIN 27-0.8 MG ORAL TABLET take 1 tablet daily VIT-FE FUMARATE-FA 67465811881 Cinthya Macario COLACE 100 MG CAPS take 1 capsule b.i.d. DOCUSATE SODIUM 14054054138 Cinthya Macario VITAMIN 27-0.8 MG ORAL TABLET take 1 tablet daily VIT-FE FUMARATE-FA 66971122843 Carlos Maurice IBUPROFEN 600 MG TABS take 1 tablet every 6 hours as needed IBUPROFEN 66101187975 Carlos Maurice COLACE 100 MG CAPS take 1 capsule b.i.d. DOCUSATE SODIUM 54385172803 Carlos Maurice Medications Administered No information available. Allergies, Adverse Reactions, Alerts No information available. Results Date Name Value Unit Range Flag Description Clinical Lists Update: [facility] METHCONTACT cell Patient's prefered method of contact [...] Procedures Code Procedure Name Date Entry Date CPT-52128 [facility] [id number],[id number] CBC with Differential 2017 CPT-19834 Sedimentation Rate (ESR) 201 06/28/09 CPT-55321 [facility] [id number],[id number] CBC with Differential 2016 CPT-54694 C- reactive protein CPT-87064 Sedimentation Rate (ESR) 201 06/07/28 CPT-Cooral Continue oral antibiotics 20 14/10/09 CPT-Cooral Continue oral antibiotics 20 13/09/26 CPT-79500 CMP CPT-40542 C- reactive protein CPT-52085 Sedimentation Rate (ESR) 201 06/06/26 [id number] CBC with Differential 2016 CPT-AFBC AFB Culture [...]
--- OUTSIDE RECORDS SUMMARY | 2025-10-19 08:35 | XMS_ITS ---
Author Organization Unknown ENCOUNTERS Encounter Performer Location Date Diagnosis Diagnosis Status Pre Admit [facility] [address] [place] [address] [place] [address] [id number] Emergency [facility] [address] [place] [address] [id number] LOLA Emergency [facility] [address] [facility] [address] [place] [address] [id number] LOLA Pre Admit [facility] [address] [place] [address] [id number] Pre Admit [facility] [address] [place] [address] [id number] Emergency [facility] [address] [facility] [address] [place] [address] [id number] LOLA Emergency [facility] ([facility]) [facility] [address] [place] [address] [id number] LOLA Pre Admit Eugonda Fryman ([facility]) [facility] [address] [place] [address] [id number] Emergency [facility] ([facility]) [facility] [address] [place] [address] [id number] LOLA Pre [facility]mit Eugonda Fryman ([facility]) [facility] [address] [place] [address] [id number] Emergency [facility] ([facility]) [facility] [address] [place] [address] [id number] LOLA Emergency Eugonda ym ([facility]) [facility] [address] [place] [address] [place] [address] [id number] LOLA Emergency [facility] [address] [place] [address] [id number] LOLA Emergency Rafael Sandoval [facility] [address] [place] [address] [id number] LOLA Emergency Marybeth L[facility] [address] [facility] [facility] [address] [place] [address] [id number] LOLA Emergency [facility] [address] [facility] [address] [place] [address] [id number] LOLA *Note: Encounters from your own facility or health system may be excluded. Allergies, Adverse Reactions, Alerts Allergen Type Severity Identification Date Medications Name Date Quantity Days Supplied [facility] Number
--- OUTSIDE RECORDS SUMMARY | 2025-10-19 08:36 | XMS_ITS | Encounter Summary ---
Author Organization [facility] Address [address] [place] [address] Care Team Providers Care Railroad Signal Technician Name Role Phone Gabrielle Birch APRN Primary Care Provider Encounter Details Date Type Department Care Team (Late st Contact Info) Description 04/28/2025 Results Follow-Up [facility] [address] [place] [address] Celeste Joseph APRN [address] [facility] [address] [place] [address] 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 Tobacco Use Types Packs/Day Years Used Date Smoking Tobacco: Never Smokeless Tobacco: Never Alcohol Use Standard Drinks/Week Comments Not Currently 0 (1 standard drink = 0.6 oz pure alcohol) 1 drink about every 3-6 months [place] Depression Scale Answer Date Recorded [place] Depression Scale Total 1 09/15/2019 The thought [...] Primary documented in this encounter Care Teams Railroad Signal Technician Relationship Specialty Start Date End Date Gabrielle Birch APRN PCP - General Internal Medicine 11/11/22 documented as of this encounter
--- OUTSIDE RECORDS SUMMARY | 2025-10-19 08:36 | XMS_ITS | Data Portability ---
Author Organization [facility] [place] SINTIA Gomez [place] [facility] Address [address] [place] [address] Care Team Providers Care Quality Assurance Engineer Name Role Phone KASH BAILEY Primary Care Provider HANH OJEDA Neurologist Assessment Encounter Date Assessment Date Assessment LastModified by Organization Details LastModified Time 06/28/2024 06/28/2024 SURGERY DATE: 06/28/2024 PREOPERATIVE DIAGNOSIS: Chronic eustachian tube dysfunction, left greater than right. POSTOPERATIVE DIAGNOSIS: Chronic eustachian tube dysfunction, left greater than right. PROCEDURE: Bilateral endoscopic eustachian tube balloon dilatation. ESTIMATED BLOOD LOSS: Less than 5 mL. INDICATIONS: Yola Ch is 43 years old. She suffers from chronic eustachian tube dysfunction for many years. It seems that her left ear has been problematic more than the right. Testing did reveal that both sides were not functioning well. She presents today for the above procedure after informed consent was obtained. PROCEDURE NOTE: The patient was brought to the operating room and placed under general endotracheal anesthesia with IV sedation. Topical Afrin and lidocaine was applied on the cottonoids. After adequate time was allowed for vasoconstriction the inferior turbinates were injected with 1% lidocaine with epinephrine. Did require outfracturing the left inferior turbinate to access the left eustachian tube opening using the endoscopic guidance. The eustachian tube balloon was then advanced and inflated for 2 minutes within the left eustachian tube opening. This was then deflated and removed. Topical mupirocin ointment was applied in the nose. A similar procedure was performed on the right side with similar results. Once this was completed, the patient was then awakened in the operating room and taken to recovery room in good condition. [email or web address] Not available 06/29/2024 12:59:42 Plan of Treatment Reminders Order Date Submit Date Provider Last Modified By Organization Details Last Modified Time Details Appointments RECHECK 2024 10:20A M ALEX PHILLIP III, MD Not available Not available Not available AUDIOGRAM 2024 10:20A M NATALI_AUD IO_CB Not available Not available Not available Lab None recorded. Referral None recorded. Procedures None recorded. Surgeries None recorded. Imaging None recorded. Medication Orders None recorded. Patient TargetsNo targets recorded. Patient Instructions Encounter Date Encounter Id Patient Instructions Last Modified By Organization Details Last Modified Time 07/10/2024 [id number] 1. Follow up in 4-6 weeks. I would like her to use her nasal steroid spray primarily in the left side to help clear this pressure. hubert Not available 07/10/2024 17:20:30 08/31/2024 [id number] 1. F/U in 1 year with audio/tympanogram . hubert Not available 08/31/2024 12:05:11 04/23/2025 [id number] 1. Laryngoscopy flex performed in office today. Mild tension dysphonia noted along with thick mucus secretions. 2. Recommended seeing a Speech Pathologist for muscle tension dysphonia 3. F/u prn c ontinue medical treatment for her ETD hubert Not available 04/23/2025 11:06:27 Reason for Referral None Reported. Results Created Date Observation Date Name Description Value Unit Range Abnormal Flag Note LastModifiedBy Organization Detail LastModifiedTime 05/17/20 24 05/15/2024 audio gram No observ ation record ed. BARCODE Not Available 2023 09:15:56 07/17/20 24 06/28/2024 clini gino photo * No observ ation record ed. BARCODE Not Available 2023 11:16:41 Result Notes None recorded. Problems Name Problem SNOMED Code Status Onset Date Resolution Date Notes Provider Name and Address Organization Details Recorded Time Pain of left shoulder joint 0442507291138 9109 Active 2018 LANDON SKAGGS, PT [address] [place], [address], [facility] 9 15:08:54 Shoulder girdle weakness 542557366 Active 2018 LANDON SKAGGS, PT [address] [place], [address], [facility] 9 15:08:56 Adhesive capsulitis of left shoulder 1424746257533 07 Active 2018 LANDON SKAGGS, PT [address] [place], [address], [facility] 9 15:08:57 Problem Notes None recorded. Procedures 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 Date Name Laterality Status Provider Name and Address Organization Details Recorded Time 04/23/20 25 Laryngoscopy Flex completed ALEX PHILLIP III, MD [address] [place], [address], [facility] 04/23/2025 11:05:39 06/28/20 24 procedure on eustachian tube completed Afia Feng [facility] 08/31/2024 11:40:46 05/15/20 24 Tympanogram completed EDIE LUCIANO, CCA-A [address] [place], [address], [facility] 05/15/2024 08:57:54 05/15/20 24 Audiogram completed EDIE LUCIANO, CCA-A [address] [place], [address], [facility] 05/15/2024 08:57:52 05/15/20 24 Eustachian Tube Function test completed EDIE LUCIANO, CCA-A [address] [place], [address], [facility] 05/15/2024 09:07:06 05/15/20 24 Cerumen removal - Instruments, Bilateral completed Deandra Stafford [facility] 05/15/2024 10:05:00 04/12/20 23 Tympanogram completed EDIE SINGLETARY [address] [place], [address], [facility] 04/12/2023 16:16:17 04/12/20 23 Audiogram completed EDIE SINGLETARY [address] [place], [address], [facility] 04/12/2023 16:16:13 04/12/20 23 Cerumen removal - Instruments, Unilateral completed Sarika Hai [facility] 04/12/2023 16:34:50 04/28/20 22 procedure on gallbladder completed Afia Feng [facility] 08/31/2024 11:41:03 03/11/20 22 Laryngoscopy Flex completed Celeste Garay [facility] 03/11/2022 14:59:01 11/26/20 21 Nasal Endoscopy completed Katarzyna Sahni [facility] 11/26/2021 08:41:12 04/02/20 19 PT Therapeutic Exercise completed LANDON SKAGGS, PT [address] [place], [address], [facility] 04/02/2019 12:02:31 04/02/20 19 PT Ultrasound completed LANDON LAWSONH, PT [address] [place], [address], [facility] 04/02/2019 12:02:15 03/26/20 19 PT Therapeutic Exercise completed LANDON LAWSONH, PT [address] [place], [address], [facility] 03/26/2019 10:29:52 03/26/20 19 PT Ultrasound completed LANDON SKAGGS, PT [address] [place], [address], [facility] 03/26/2019 10:29:42 02/28/20 19 PT Therapeutic Exercise completed LANDON BILLSOLICH, PT [address] [place], [address], [facility] 02/27/2019 09:16:49 02/28/20 19 PT Ultrasound completed LANDON LAWSONH, PT [address] [place], [address], [facility] 02/27/2019 09:16:27 02/20/20 19 PT Therapeutic Exercise completed LANDON LAWSONH, PT [address] [place], [address], [facility] 02/19/2019 13:12:19 02/20/20 19 PT Ultrasound completed DAUN KAROLICH, PT [address] [place], [address], [facility] 02/19/2019 13:11:59 02/13/20 19 PT Therapeutic Exercise completed DAUN KAROLICH, PT [address] [place], [address], [facility] 02/12/2019 11:59:04 02/13/20 19 PT Ultrasound completed DAUN KAROLICH, PT [address] [place], [address], [facility] 02/12/2019 11:59:13 02/08/20 19 PT Therapeutic Exercise completed DAUN KAROLICH, PT [address] [place], [address], [facility] 02/07/2019 12:01:12 02/08/20 19 PT Ultrasound completed DAUN KAROLICH, PT [address] [place], [address], [facility] 02/07/2019 12:01:03 01/23/20 19 PT Therapeutic Exercise completed DAUN KAROLICH, PT [address] [place], [address], [facility] 01/23/2019 17:49:26 01/23/20 19 PT Ultrasound completed DAUN KAROLICH, PT [address] [place], [address], [facility] 01/23/2019 11:34:01 01/17/20 19 PT Therapeutic Exercise completed DAUN KAROLICH, PT [address] [place], [address], [facility] 01/17/2019 12:54:31 01/17/20 19 PT Ultrasound completed DAUN KAROLICH, PT [address] [place], [address], [facility] 01/17/2019 12:54:14 01/09/20 19 PT Evaluation - Low Complexity completed DAUN KAROLICH, PT [address] [place], [address], [facility] 01/09/2019 13:02:49 01/09/20 19 PT Therapeutic Exercise completed LANDON SKAGGS, PT [address] [place], [address], [facility] 01/09/2019 13:03:06 09/28/20 09 tonsillectomy completed [facility] 08/31/2024 11:36:25 04/28/20 07 procedure on lower leg completed [facility] 08/31/2024 11:37:35 03/28/20 04 nasal sinus procedure completed [facility] 08/31/2024 11:36:06 Imaging Results None recorded. Procedure Notes None recorded. Medical Equipment None Reported. Allergies No known drug allergies Medications Name Sig Start Date Stop Date Status Note LastModified by Organization Details LastModified Time fluconazo le 100 mg tablet TAKE 1 TABLET ORALLY NOW AND REPEAT DOSE AFTER COMPLETI NG ANTIBIOT ICS 04/12 completed Not Available Not Available Not Available promethaz ine-DM 6.25 mg-15 mg/5 mL oral syrup TAKE 5 ML ORALLY EVERY 6 HOURS NEEDED FOR COUGH 04/23 completed Not Available Not Available Not Available prednison e 10 mg tablet TAKE 1 TABLET BY MOUTH TWICE A DAY FOR 3 DAYS 04/12 completed Not Available Not Available Not Available azithromy angie 250 mg tablet TAKE 2 TABLETS BY MOUTH TODAY, THEN TAKE 1 TABLET DAILY FOR 4 DAYS DIRECTED 04/23 completed Not Available Not Available Not Available ibuprofen 800 mg tablet 01/11 completed Not Available Not Available Not Available ofloxacin 0.3 % eye drops 12/29 completed Not Available Not Available Not Available fluconazo le 150 mg tablet TAKE 1 TABLET BY MOUTH EVERY DAY FOR 5 DAYS 04/23 completed Not Available Not Available Not Available benzonata te 200 mg capsule 12/29 completed Not Available Not Available Not Available sumatript an 100 mg tablet 04/12 completed Not Available Not Available Not Available hydrocodo ne 5 mg-acetam inophen 325 mg tablet 11/26 completed Not Available Not Available Not Available fluticaso ne propionat e 0.05 % topical cream APPLY TOPICALL Y TWICE DAILY 11/26 completed Not Available Not Available Not Available metronida zole 0.75 % (37.5 mg/5 gram) vaginal gel 11/26 completed Not Available Not Available Not Available rizatript an 10 mg tablet Take 1 tablet every day by oral route. 05/15 completed Not Available Not Available Not Available moxifloxa angie 400 mg tablet 12/29 completed Not Available Not Available Not Available promethaz ine 6.25 mg-codein e 10 mg/5 mL syrup 12/29 completed Not Available Not Available Not Available topiramat e 25 mg tablet PLEASE SEE ATTACHED FOR DETAILED DIRECTIO NS 04/12 completed Not Available Not Available Not Available phentermi ne 37.5 mg tablet TAKE 1 TABLET BY MOUTH EVERY DAY BEFORE BREAKFAS T 05/15 completed Not Available Not Available Not Available tretinoin 0.05 % topical cream APPLY TOPICALL Y ONCE DAILY AT BEDTIME 04/12 completed Not Available Not Available Not Available ciproflox acin 500 mg tablet TAKE 1 TABLET BY MOUTH TWICE DAILY FOR 7 DAYS 05/15 completed Not Available Not Available Not Available sulfameth oxazole 800 mg-trimet hoprim 160 mg tablet TAKE 1 TABLET BY MOUTH TWICE A DAY FOR 7 DAYS 05/15 completed Not Available Not Available Not Available omeprazol e 40 mg capsule,d elayed release Take 1 capsule every day by oral route in the morning for 30 days. 04/12 completed Not Available Not Available Not Available butalbita l-acetami nophen-ca ffeine 50 mg-325 mg-40 mg tablet 11/26 completed Not Available Not Available Not Available amoxicill in 500 mg tablet TAKE 1 TABLET BY MOUTH THREE TIMES A DAY FOR 10 DAYS 04/12 completed Not Available Not Available Not Available acyclovir 800 mg tablet 11/26 completed Not Available Not Available Not Available ondansetr on 8 mg disintegr ating tablet 11/26 completed Not Available Not Available Not Available Microgest in FE 12/17 (28) 1 mg-20 mcg (21)/75 mg (7) tablet 12/29 completed Not Available Not Available Not Available propranol ol 40 mg tablet 04/12 completed Not Available Not Available Not Available amoxicill in 875 mg tablet TAKE 1 TABLET BY MOUTH TWICE A DAY FOR 10 DAYS 05/15 completed Not Available Not Available Not Available gentamici n 0.3 % eye drops 12/29 completed Not Available Not Available Not Available benzonata te 100 mg capsule TAKE 1 CAPSULE BY MOUTH THREE TIMES A DAY NEEDED FOR COUGH 04/23 completed Not Available Not Available Not Available rizatript an 10 mg disintegr ating tablet TAKE 1 TABLET BY MOUTH NEEDED FOR MIGRAINE S MAY REPEAT IN 2 HOURS IF NO RELIEF 04/12 completed Not Available Not Available Not Available hydrocodo ne 7.5 mg-acetam inophen 325 mg tablet TAKE 1 TAB PO EVERY 6-8 HOURS NEEDED FOR PAIN NOT CONTROLL ED BY TYLENOL/ IBUPROFE N 08/31 completed Not Available Not Available Not Available cephalexi n 500 mg capsule TAKE 1 CAPSULE BY MOUTH TWICE A DAY FOR 7 DAYS active Not Available Not Available No t Available pantopraz ole 40 mg tablet,de layed release 11/26 completed Not Available Not Available Not Available oseltamiv ir 75 mg capsule TAKE 1 CAPSULE BY MOUTH EVERY DAY 04/23 completed Not Available Not Available Not Available tobramyci n 0.3 % eye drops 1 DROP INTO THE EYE(S) EVERY 4 HOURS FOR 7 DAYS 04/23 completed Not Available Not Available Not Available sertralin e 25 mg tablet TAKE 1 TABLET BY MOUTH EVERY DAY FOR MOOD FOR 90 DAYS active Not Available Not Available No t Available Levaquin 500 mg tablet Take 1 tablet every 24 hours by oral route. 04/12 completed Not Available Not Available Not Available gabapenti n 100 mg capsule 12/29 completed Not Available Not Available Not Available ergocalci ferol (vitamin D2) 1,250 mcg (50,000 unit) capsule TAKE 1 CAPSULE BY MOUTH 1 TIME PER WEEK. active Not Available Not Available No t Available ibuprofen 600 mg tablet Take 1 tablet every 12 hours by oral route. 11/26 completed Not Available Not Available Not Available methylpre dnisolone 4 mg tablets in a dose pack 4 MG ORALLY DIRECTED FOR 6 DAYS TAKE 1 PACK DIRECTED FOR 6 DAYS 04/23 completed Not Available Not Available Not Available albuterol sulfate HFA 90 mcg/actua tion aerosol inhaler INHALE 2 PUFFS EVERY 4 TO 6 HOURS NEEDED FOR SHORTNES S OF BREATH OR FOR WHEEZE 04/23 completed Not Available Not Available Not Available brompheni ramine-ps eudoephed rine-DM 2 mg-30 mg-10 mg/5 mL oral syrup 11/26 completed Not Available Not Available Not Available ondansetr on 4 mg disintegr ating tablet TAKE 1 TAB NEEDED EVERY 6 HOURS FOR NAUSEA 08/31 completed Not Available Not Available Not Available cefdinir 300 mg capsule TAKE 1 CAPSULE BY MOUTH TWICE A DAY FOR 10 DAYS 04/23 completed Not Available Not Available Not Available dexametha sone sodium phosphate 10 mg/mL injection solution 10MG IM 11/26 completed Not Available Not Available Not Available doxycycli ne hyclate 100 mg tablet 12/29 completed Not Available Not Available Not Available naproxen 500 mg tablet 12/29 completed Not Available Not Available Not Available amoxicill in 875 mg-potass ium clavulana te 125 mg tablet TAKE 1 TABLET BY MOUTH EVERY 12 HOURS 04/23 completed Not Available Not Available Not Available clindamyc in phosphate 1 % topical solution APPLY TO AFFECTED AREA TWICE A DAY 05/15 completed Not Available Not Available Not Available rosuvasta tin 10 mg tablet 11/26 completed Not Available Not Available Not Available topiramat e 50 mg tablet PLEASE SEE ATTACHED FOR DETAILED DIRECTIO NS 04/12 completed Not Available Not Available Not Available nitrofura ntoin monohydra te/macroc rystals 100 mg capsule TAKE 1 CAPSULE BY MOUTH 2 TIMES A DAY FOR 5 DAYS. 05/15 completed Not Available Not Available Not Available Mucinex D 60 mg-600 mg tablet,ex tended release Take 1 tablet every day by oral route for 7 days. 11/26 completed Not Available Not Available Not Available Vitamin 12/29 completed Medicati on Descript ion: multivit pulido, ; Route:or al; refills: 0 Not Available Not Available Not Available Travel Sickness (meclizin e) 25 mg chewable tablet 11/26 completed Not Available Not Available Not Available Gavilyte- C 240 gram-22.7 2 gram-6.72 gram-5.84 gram oral solution PLEASE SEE ATTACHED FOR DETAILED DIRECTIO NS 04/12 completed Not Available Not Available Not Available Mucus Relief ER 600 mg tablet, extended release TAKE 1 TABLET ORALLY TWICE DAILY NEEDED FOR COUGH 04/23 completed Not Available Not Available Not Available Suprep Bowel Prep Kit 17.5 gram-3.13 gram-1.6 gram oral solution TAKE DIRECTED BY PRESCRIB ERS OFFICE 05/15 completed Not Available Not Available Not Available Lo Loestrin Fe 1 mg-10 mcg (24)/10 mcg (2) tablet 12/29 completed Not Available Not Available Not Available Linzess 72 mcg capsule TAKE 1 CAPSULE BY MOUTH EVERY DAY FOR 90 DAYS 04/12 completed Not Available Not Available Not Available Nurtec ODT 75 mg disintegr ating tablet PLACE 1 PILL UNDER TONGUE AT ONSET OF MIGRAINE NEEDED. MAX DOSE 75 MG IN 24 HOURS. REFILLS BY PCP active Not Available Not Available No t Available Airsupra 90 mcg-80 mcg/actua tion HFA aerosol inhaler INHALE 2 PUFFS BY MOUTH 6 TIMES DAILY NEEDED FOR SHORTNES S OF BREATH OR WHEEZING 04/23 completed Not Available Not Available Not Available Vitals Date Recorded Body height Body mass index (BMI) Body weight Heart rate Systolic And Diastolic Provider Name and Address Organization Details Last Updated DateTime 04/23/2025 177.8 cm 29.6 kg/m2 72737.75 g 84 /min 129/72 mm[Hg] Deandra Stafford [facility] 09:57:15 Date Recorded Body height Body mass index (BMI) Body weight Provider Name and Address Organization Details Last Updated DateTime 05/15/2024 177.8 cm 28.6 kg/m2 07058.58 g Majo Navas [facility] 05/15/2024 09:19:47 Date Recorded Body height Body mass index (BMI) Body weight Body temperature Provider Name and Address Organization Details Last Updated DateTime 07/10/2024 177.8 cm 28.2 kg/m2 35128.2 g 97.5 [degF] Elaina Mcfarlanefrey [facility] 07/10/2024 14:56:39 Date Recorded Body height Body mass index (BMI) Body weight Body temperature Systolic And Diastolic Provider Name and Address Organization Details Last Updated DateTime 08/31/2024 177.8 cm 28.5 kg/m2 70650.3 9 g 97.7 [degF] 137/92 mm[Hg] Afia [facility] 4 10:12:25 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 Question Answer Notes LastModified by Official [employer] Details LastModified Time Tobacco Smoking Status Never Smoker [facility] 12/29/2018 09:32:33 What Was The Date Of Your Most Recent Tobacco Screening? 01/11/2019 Information n ot available 01/15/2020 Sex: Female Functional Status Question Answer Note LastModified by Organizat ion Details LastModified Time What is your level of alcohol consumption? Occasional asalva Information not available 01/11/2019 Mental Status None recorded. Family History Relationship Description Onset Age of this Age Resolved Age Notes LastModified by Organization Details LastModified Time Father No current problems or disability asalva Not available 01/11 09:39:13 Mother No current problems or disability asalva Not available 01/11 09:39:13 Medical History Condition Response Anxiety/Depression N Thyroid Disease Y Kidney Stones N Hyperthyroidism N Heart Arrhythmia N Hernia N Emphysema N Esophagus/swallowing troubles Y COPD N Depression N Lung Disease N Hypothyroidism N Glaucoma N Pneumonia N Anesthesia Complications N Anxiety Disorder N Hearing Loss N Arthritis N Acid Reflux (GERD) Y Cancer N Stroke N Hoarseness N Blood Thinners Y Alcohol Overuse/Alcohol Abuse N High Cholesterol Y Snoring problems N Liver Disease N Headaches Y Kidney Disease N Allergies/Hayfever Y Heart Problems N Mental handicap N Heart Conditions N Ear or Hearing Problems Y Gallbladder Disease N Migraines Y Thyroid Problems N Goiter Y Anemia Y Immune System Disorder N Chest Pain N Stomach trouble N Ulcers N Heart Attack ([place]) N Diabetes N Rheumatic Fever N Bleeding Disorder N Seizures/Epilepsy N Tuberculosis N AIDS/HIV N Hyperlipidemia N Asthma N Epilepsy/Seizures N Sleep Apnea N Sleep Disorder N Hepatitis N Heart Disease N Hypertension N Osteoporosis N Gynecological HistoryNo gynecological history recorded. Obstetrics History GPAL:G 0 P 0 0 0 0 Past Encounters Encounter ID Performer Location Encounter Start Date Encounter Closed Date Diagnosis/Indication Diagnosis SNOMED-CT Code Diagnosis ICD10 Code Diagnosis IMO Codes Diagnosis Note [id number] W JULIA MONTGOMERY MD [facility] [address] [place] [address] 12/29/2018 09:14:02 12/29/2018 10:43:19 Pain of shoulder region 55229411 M25.375 [id number] LANDON SKAGGS, PT PHYSICAL THERAPY / HAND THERAPY [facility] [address] [place] [address] 01/09/2019 10:47:47 01/09/2019 15:33:15 Pain of left shoulder joint 0968409524 4907482 M25.512 Shoulder g irdle weakness 980976536 M99.07 Adhesive c apsulitis of left shoulder 0825118347 86279 M75.02 [id number] BRENDA DUCKWORTH APRN [place] [facility] [address] [place] [address] 01/11/2019 09:09:14 01/11/2019 11:37:01 Otalgia of left ear 5992838513 286835 H92.02 - likely secondary to left ETD and TMJ - ENT examinatio n WNL besides TMJ Dysfunctio n of left eustachian tube 1545948362 234756 H69.92 - no effusion or infection 01/11/19 Temporoman dibular joint disorder 50220599 M26.254 [id number] LANDON SKAGGS, PT PHYSICAL THERAPY / HAND THERAPY [facility] [address] [place] [address] 01/17/2019 11:05:51 01/17/2019 13:13:40 Pain of left shoulder joint 9707250030 9886194 M25.512 Shoulder g irdle weakness 006853684 M99.07 Adhesive c apsulitis of left shoulder 0425586680 36684 M75.02 [id number] LANDON SKAGGS, PT PHYSICAL THERAPY / HAND THERAPY [facility] [address] [place] [address] 01/23/2019 11:01:35 01/24/2019 08:09:56 Pain of left shoulder joint 0748365852 3649888 M25.512 Shoulder g irdle weakness 796550463 M99.07 Adhesive c apsulitis of left shoulder 6655217036 05013 M75.02 [id number] LANDON SKAGGS, PT PHYSICAL THERAPY / HAND THERAPY [facility] [address] [place] [address] 02/07/2019 10:59:51 02/07/2019 12:51:27 Pain of left shoulder joint 2062925204 1899231 M25.512 Shoulder g irdle weakness 136174888 M99.07 Adhesive c apsulitis of left shoulder 4023973452 87363 M75.02 [id number] LANDON SKAGGS, PT PHYSICAL THERAPY / HAND THERAPY [facility] [address] [place] [address] 02/12/2019 11:02:05 02/12/2019 14:14:50 Pain of left shoulder joint 6218323166 7200847 M25.512 Shoulder g irdle weakness 379389097 M99.07 Adhesive c apsulitis of left shoulder 6954180883 72481 M75.02 [id number] LANDON SKAGGS, PT PHYSICAL THERAPY / HAND THERAPY [facility] [address] [place], [place] [address] [address] 02/19/2019 11:05:39 02/19/2019 13:27:44 Pain of left shoulder joint 9998989274 9420780 M25.512 Shoulder g irdle weakness 469051557 M99.07 Adhesive c apsulitis of left shoulder 7712981406 08460 M75.02 [id number] LANDON SKAGGS, PT PHYSICAL THERAPY / HAND THERAPY [facility] [address] [place], [place] [address] [address] 02/27/2019 08:16:30 02/27/2019 09:31:05 Pain of left shoulder joint 3514223363 8071619 M25.512 Shoulder g irdle weakness 437819799 M99.07 Adhesive c apsulitis of left shoulder 9501646134 11127 M75.02 [id number] LANDON SKAGGS, PT PHYSICAL THERAPY / HAND [facility]APY [facility] [address] [place] [place] [address] 03/26/2019 09:26:05 03/26/2019 11:41:32 Pain of left shoulder joint [id number] 0031931 M25.512 Shoulder g irdle weakness 982386664 M99.07 Adhesive c apsulitis of left shoulder 0589259253 74603 M75.02 [id number] LANDON SKAGGS, PT PHYSICAL THERAPY / HAND THERAPY [facility] [address] [address] 04/02/2019 11:01:29 04/02/2019 12:57:26 Pain of left shoulder joint 9841000161 6150842 M25.512 Shoulder g irdle weakness 562048957 M99.07 Adhesive c apsulitis of left shoulder 8847927637 98355 M75.02 [id number] MD COURTNEY MAHMOOD ENT [address] [place] [address] 11/26/2021 07:45:54 11/26/2021 09:34:42 Otalgia of left ear 9542125880 677358 H92.02 - likely secondary to left ETD and TMJ - ENT examinatio n WNL besides TMJ Dysfunctio n of left eustachian tube 7628421597 518254 H69.92 - no effusion or infection 01/11/19 Temporoman dibular joint disorder 93832698 M26.609 Bilateral tinnitus 52856 67434 102 H93.13 Migraine 78233295 G43.90 9 [id number] MD COURTNEY MAHMOOD ENT [address] [place] [address] 03/08/2022 13:44:57 03/15/2022 14:56:17 Migraine 00060822 G43.909 Bilateral tinnitus 50085 33629 102 H93.13 Otalgia of left ear 1089 439263 369473 H92.02 - likely secondary to left ETD and TMJ - ENT examinatio n WNL besides TMJ Dysfunctio n of left eustachian tube 5017331436 729170 H69.92 - no effusion or infection 01/11/19 Temporoman dibular joint disorder 03487459 M26.609 Allergic rhinitis 001517 04 J30.9 [id number] MD COURTNEY MAHMOOD ENT [address] [place] [address] 03/11/2022 13:10:34 03/11/2022 15:06:49 Migraine 80850435 G43.909 Bilateral tinnitus 34910 65579 102 H93.13 Otalgia of left ear 1089 318070 568178 H92.02 - likely secondary to left ETD and TMJ - ENT examinatio n WNL besides TMJ Dysfunctio n of left eustachian tube 6688032454 667563 H69.92 - no effusion or infection 01/11/19 Temporoman dibular joint disorder 84234769 M26.609 Allergic rhinitis 951472 04 J30.9 Pain in throat 707672414 R07.0 Acid reflux 327693992 K2 1.9 Lymphadenopathy 61056102 R59.1 - lingual tonsils hypertroph y Hypertroph y of lingual tonsil 975033460 J35.3 [id number] CARMEN GIBSON MD [place] [facility] [address] [place] [address] 04/12/2023 14:45:12 04/13/2023 22:19:05 Lymphadenopathy 24405374 R59.1 - lingual tonsils hypertroph y Pain in throat 103585622 R07.0 Acid reflux 169062847 K2 1.9 Migraine 23797310 G43.90 9 Atypical otalgia Dysfunctio n of left eustachian tube 3950865223 044149 H69.92 - no effusion or infection 01/11/19 Temporoman dibular joint disorder 72183982 M26.609 Ear pressu re sensation 015284376 H93.8X9 Hearing examination 3981 44370 Z01.10 04/12/2023 -normal hearing bilaterall y with Type A Tymps bilaterall y ad ETF is 2/2 bilaterall y and SRT: 10dB and WDS: 50dB with 100% all bilaterall y [id number] EDIE SINGLETARY [place] [facility] [address] [place] [address] 04/12/2023 16:15:50 04/12/2023 16:30:45 Referred otalgia 27784203 H92.02 [id number] ALEX PHILLIP III, MD [place] [facility] [address] [place] [address] 05/15/2024 08:51:31 05/15/2024 10:44:44 Migraine 97075854 G43.909 Atypical otalgia Ear pressu re sensation 983515506 H93.8X9 Hearing examination 3981 45839 Z01.10 04/12/2023 -normal hearing bilaterall y with Type A Tymps bilaterall y ad ETF is 2/2 bilaterall y and SRT: 10dB and WDS: 50dB with 100% all bilaterall y05/15/24- normal audiogram with type AB TYMPS bilaterall y Temporoman dibular joint disorder 30555262 M26.609 Lymphadenopathy 33842943 R59.1 - lingual tonsils hypertroph y Pain in throat 398055749 R07.0 Acid reflux 160003266 K2 1.9 Dysfunctio n of bilateral eustachian tubes 0067035977 836229 H69.93 Tonsil absent 004887196 Z90.09 Bilateral tinnitus 67216 39365 102 H93.13 04/1824-nig htly and keeps awake. Severe Impacted c erumen of bilateral ears 9368575290 622902 H61.23 [id number] GIL JACOB ER, AUD, CCA-[facility] [place] [facility] [address] [place] [address] 05/15/2024 08:57:00 05/23/2024 15:18:49 Otalgia of left ear 9114572124 H92.02 Bilateral tinnitus 37368 74698 102 H93.13 Impairment of balance 38 0806367 R26.89 [id number] ALEX PHILLIP III, MD SURGERY SCHEDULE [address] [place] [address] 06/28/2024 07:53:30 06/28/2024 07:55:56 [id number] ALEX PHILLIP III, MD [place] [facility] [address] [place] [address] 07/10/2024 14:15:57 07/10/2024 15:35:43 Dysfunction of bilateral eustachian tubes 8301309852 451601 H69.93 Ear pressu re sensation 984114057 H93.8X9 Bilateral tinnitus 69678 82029 102 H93.13 04/1824-nig htly and keeps awake. Severe Migraine 31237169 G43.90 9 Atypical otalgia Hearing examination 3981 11431 Z01.10 04/12/2023 -normal hearing bilaterall y with Type A Tymps bilaterall y ad ETF is 2/2 bilaterall y and SRT: 10dB and WDS: 50dB with 100% all bilaterall y24- normal audiogram with type AB TYMPS bilaterall y Temporoman dibular joint disorder 03164182 M26.609 Lymphadenopathy 02306940 R59.1 - lingual tonsils hypertroph y Pain in throat 918190466 R07.0 Acid reflux 384647577 K2 1.9 Tonsil absent 995635355 Z90.09 [id number] MD COURTNEY RODRIGUEZ III ENT [address] [place] [address] 08/31/2024 08:51:21 08/31/2024 12:55:56 Dysfunction of bilateral eustachian tubes 5026942833 697166 H69.93 s/p ETBD of bilateral ears on 06/28/24 Ear pressu re sensation 935519106 H93.8X9 Bilateral tinnitus 17279 31312 102 H93.13 04/1824-nig htly and keeps awake. Severe Migraine 16428785 G43.90 9 Atypical otalgia Hearing examination 3981 12204 Z01.10 04/12/2023 -normal hearing bilaterall y with Type A Tymps bilaterall y ad ETF is 2/2 bilaterall y and SRT: 10dB and WDS: 50dB with 100% all bilaterall y24- normal audiogram with type AB TYMPS bilaterall y Temporoman dibular joint disorder 45437769 M26.609 Lymphadenopathy 57949723 R59.1 - lingual tonsils hypertroph y Pain in throat 608421229 R07.0 Acid reflux 281778429 K2 1.9 Tonsil absent 958463586 Z90.09 [id number] MD COURTNEY RODRIGUEZ III ENT [address] [place] [address] 04/23/2025 09:46:23 04/23/2025 12:36:43 Dysfunction of bilateral eustachian tubes 2413129740 790500 H69.93 s/p ETBD of bilateral ears on 06/28/24 Ear pressu re sensation 617830418 H93.8X9 Bilateral tinnitus 35399 38599 102 H93.13 04/1824-nig htly and keeps awake. Severe Migraine 34540150 G43.90 9 Atypical otalgia Hearing examination 3981 31431 Z01.10 04/12/2023 -normal hearing bilaterall y with Type A Tymps bilaterall y ad ETF is 2/2 bilaterall y and SRT: 10dB and WDS: 50dB with 100% all bilaterall y05/15/24- normal audiogram with type AB TYMPS bilaterall y Temporoman dibular joint disorder 76620002 M26.609 Lymphadenopathy 98286039 R59.1 - lingual tonsils hypertroph y Pain in throat 672747483 R07.0 Acid reflux 647890255 K2 1.9 Tonsil absent 239315323 Z90.09 History of nasal sinus surgery 4118908725 39881 Z98.394 [id number] 2004 Dysphonia 51111996 R49.0 879203 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 I have recommende d speech therapy interventi on. This would be a good time to do it while she is off of the summer. Health Concerns Section Related Observation LastModified by Organization Detai ls LastModified Time None Recorded Concern Status LastModified by Organization Details LastModified Time None Recorded Advance Directives Directive None Recorded Payers Insurance Date Sequence Insurance Name Policy Number Policy Ansari Covered Member ID Ansari Member ID Guarantor Name 11/20/2018 1 [employer] [id number] 3 Julio Cesar Ch [id number] Yola Ch 09/03/2025 1 [employer] [id number] 3 Julio Cesar Ch II [id number] Yola Ch Notes Date Note Type Note Provider Name and Address Organization Details Recorded Time 05/15/2024 text/html Yola presents in office today to follow up on otalgia and tinnitus. The pt notes she has constant tinnitus which is so loud she has to sleep with a TV on. She does feel at times she is trapped in her body due to tinnitus and ear pressure. The pt did present one year ago with severe otalgia. She feels there is fluid trapped behind her TM and can hear water sloshing. She has trialed Flonase which has not assisted symptoms at all. She does have hx of migraine. She does have an enlarged thyroid but denies medication interventions. She will become fatigued and cannot become comfortable at night. Symptoms have been present for > 3 months.Persists despite allergic rhinitis treatment with nasal sprays.Tympanic membranes are retracted on exam.No nasopharyngeal obstruction of eustachian tube on nasal endoscopy.Patient has symptoms consistent claudia challenge induced eustachian tube dysfunction including aural fullness, popping, and painPatient has not had ear tubes as an adult, she had them as a childPatient has never had a balloon eustachian tube dilation before.There are no suspected contra-indication for the procedure. ALEX PHILLIP III, MD [facility] [place], [address], [facility] 05/15/2024 10:34:24 07/10/2024 text/html Yola Ch ([id number]) visits our office for a post operative evaluation following Bilateral endoscopic eustachian tube balloon dilatation performed 06/28/24. She reports some minor discomfort post operatively, however the fluid feelings are improved. She still notes occasional pressure discomfort on the left side. She is doing well overall. MD Nitesh RODRIGUE[place], [address], [facility] 07/10/2024 17:20:46 08/31/2024 text/html ROS as noted in the HPI Yola visits us in office today to follow up on her ETD and bilateral ETBD. She reports that she has been getting sore behind her ears, but her ear pain is much better than it was before the operation. She does not report any ear infections and she is able to auto-inflate in ears to relieve pressure. MD [place], [address], [facility] 08/31/2024 12:05:25 04/23/2025 text/html ROS as noted in the HPI Yola visits us in office today to follow up on ETD. Pt states she has recently had pain in her left ear. 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 She has not noticed so much when she has been off for the summer. She will occasionally have sharp pains through the vocal cord area that last a few seconds. She denies any reflux symptomatology she has been using flonase and taking a daily allergy medicine. Pt has hx of sinus surgery ( 2003 ) ALEX PHILLIP III, MD [address] [place] [address], [phone], [facility] 04/23/2025 11:06:53 OBGyn Episode No OBEpisode recorded.
--- OUTSIDE RECORDS SUMMARY | 2025-10-19 08:36 | XMS_ITS | Clinical Summary ---
Author Organization Healthcare Address [address] [place] [address] Care Team Providers Care Supervisor Filling And Packing Name Role Phone BirchGabrielle Caryn ALONZO Primary Care Provider [phone]- [phone] Allergies No known active allergies 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 [...] 2024 Sigmoidoscopy 2024 [facility]-Colorectal Cancer Screening 2024 [id number] Vaccine ( season) 2025 10/03/2021, 01/17/2021, 12/29/2020 [...] complete this topic Insurance PETER Care Teams Supervisor Filling And Packing Relationship Specialty Start Date End Date Gabrielle Birch APRN [address] [place] [address] PCP - General 10/20/21
[2025-10-19 10:05] LABS: Alanine Aminotransferase 18 U/L (12-78); Albumin Level 4.7 g/dl (3.5-5.0); Albumin/Globulin Ratio 1.6 (1.1-1.8); Alkaline Phosphatase 77 U/L (38-126); Anion Gap 11.4 mEq/L (5-15); Aspartate Amino Transferase 24 U/L (14-36); Bilirubin,Total 0.9 mg/dl (0.2-1.3); Blood Urea Nitrogen 15 mg/dl (7-17); Calcium 9.7 mg/dl (8.4-10.2); Carbon Dioxide 26 mmol/L (22.0-30.0); Chloride 103 mmol/L (98-107); Cholesterol 210 mg/dl (140-200); Creatinine,Serum 0.60 mg/dl (0.52-1.04); Estimated Glomerular Filt Rate 108 ml/min (>60); GFR (African American) 130 ML/MIN (>60); Globulin 3.0 g/dL (1.3-3.2); Glucose 90 mg/dl (74-100); HDL Cholesterol 51 mg/dl (40-60); Potassium 4.4 mmoL/L (3.5-5.1); Sodium 136 mmol/L (136-145); Total Protein,Serum 7.7 g/dl (6.3-8.2); Triglycerides 114 mg/dl (30-150)
[2025-10-19 10:38] LABS: Thyroid Stimulating Hormone 0.73 uIU/mL (0.465-4.68)
[2025-10-19 10:57] LABS: Vitamin B12 522 pg/mL (239-931)
== END 2025-10-19 23:59 | disposition home or self-care (01) ==
LOC: LAB 08:34
PROVIDERS: PCP Nurse Practitioner Family; Visit Provider Nurse Practitioner Family
DX: E01.0 Iodine-deficiency related diffuse (endemic) goiter (principal); Z13.220 Encounter for screening for lipoid disorders; R53.83 Other fatigue; R63.5 Abnormal weight gain
CPT/HCPCS: 80053; 80061; 82607; 84443